=== PATIENT | female | born 1995 | race Caucasian/White ===

== ENCOUNTER 2019-02-18 07:34 | Emergency (ER) | payer BC, SELFPAY ==
[2019-02-18] VITALS (8 sets, daily range): BP systolic 110–142; BP diastolic 64–103; PULSE 60–94; RESP 16–22; TEMP 36.6; O2SAT 95–100; BMI 45.6
[2019-02-18 08:04] LABS: Microscopic, Urine URINE MICROSCOPIC (MICROSCOPIC)
[2019-02-18 08:07] LABS: Appearance,Urine CLOUDY (Clear); Bilirubin,Urine Negative (Negative); Blood, Urine Negative (Negative); Color,Urine YELLOW (Yellow); Glucose,Urine (UA) Negative (Negative); Ketones,Urine Negative (Negative); Leukocyte Esterase,Urine Negative (Negative); Nitrate,Urine Negative (Negative); Protein,Urine TRACE (Negative); Specific Gravity, Urine >= 1.030 (1.005-1.030); Urobilinogen,Urine 0.2 EU/dl (0.2)
[2019-02-18 08:11] LABS: Urine Pregnancy, HCG Qual. Negative (Negative)
--- NOTE | 2019-02-18 08:18 | HMH.EDGENADL ---
ED Disposition Clinical Impression: Acute gastroenteritis Disposition: Home, Self-Care Condition on Discharge: Fair Instructions: DI for Viral Gastroenteritis -- Adult Additional Instructions: Additional instructions for ABDOMINAL PAIN, VOMITING/DIARRHEA: See your physician as soon as possible for further evaluation. Return immediately if worsening abdominal pain, vomiting, shortness of breath, fever, vomiting of blood or abdominal distention. Prescriptions: Dicyclomine HCl [Bentyl 10mg capsule] 10 mg PO TIDP PRN #15 cap PRN Reason: abdominal pain Loperamide HCl [Loperamide] 2 mg PO TIDP PRN #10 tab PRN Reason: Diarrhea Ondansetron [Zofran 4mg ODT] 4 mg PO TIDP PRN #10 tab.rapdis PRN Reason: Nausea And Vomiting Referrals: Mitzy Hernandez [Primary Care Provider] - Forms: Work/School Release - Critical Care Critical Care Time: No Attestation: On 02/18/19, the high probability of a clinically significant, sudden or life threatening deterioration of the following system(s) required my full and direct attention, intervention and personal management. The time I documented below is in addition to time spent performing reported procedures but includes the following listed in this critical care notation. Medical Decision Making - Tim Inquiry Pt receiving controlled substance: Yes Tim was queried for this patient: Yes Reference #:: [id number] Risks and benefits of using a controlled substance: were not discussed with pt by me Comment: 0 rxs. Vital Signs: 02/18/19 07:52 02/18/19 08:05 02/18/19 08:30 Temperature 98 F Temperature Source Temporal Artery Scan Pulse Rate [Left Radial] 77 94 H 73 Respiratory Rate 22 Blood Pressure [Right Arm] 142/71 H 123/103 H 129/79 Blood Pressure Mean [Right Arm] 94 109 95 Blood Pressure Source [Right Arm] Automatic Cuff Blood Pressure Position [Right Arm] Sitting 02 Sat by Pulse Oximetry 98 96 95 Oxygen Delivery Method Room Air 02/18/19 09:26 02/18/19 09:30 02/18/19 10:00 Temperature Temperature Source Pulse Rate [Left Radial] 69 63 60 Respiratory Rate Blood Pressure [Right Arm] 131/91 H 121/80 116/64 Blood Pressure Mean [Right Arm] 104 93 81 Blood Pressure Source [Right Arm] Automatic Cuff Blood Pressure Position [Right Arm] Sitting 02 Sat by Pulse Oximetry 98 100 Oxygen Delivery Method - Lab Data Lab Results 02/18/19 07:39: Urine Color Yellow, Urine Appearance Cloudy, Urine pH 6.0, Ur Specific [place] >= 1.030, Urine Protein Trace, Urine Glucose (UA) Negative, Urine Ketones Negative, Urine Blood Negative, Urine Nitrate Negative, Urine Bilirubin Negative, Urine Urobilinogen 0.2, Ur Leukocyte Esterase Negative, Urine RBC None, Urine WBC Occasional, Ur Squamous Epith Cells 3-5, Urine Bacteria 1+ 02/18/19 07:39: Urine HCG, Qual Negative 02/18/19 08:22: WBC 11.9 H, RBC 4.90, Hgb 14.6, Hct 41.7, MCV 85.1, MCH 29.7, MCHC 35.0, RDW 12.4, Plt Count 256, MPV 8.0, Neut % (Auto) 70.4, Lymph % (Auto) 21.0, [place] % (Auto) 4.4, Eos % (Auto) 3.7, Baso % (Auto) 0.5, Neut # (Auto) 8.4 H, Lymph # (Auto) 2.5, [place] # (Auto) 0.5, Eos # (Auto) 0.4, Baso # (Auto) 0.1 02/18/19 08:22: Sodium 136, Potassium 3.7, Chloride 104, Carbon Dioxide 20 L, Anion Gap 15.7 H, BUN 12, Creatinine 0.82, Estimated Creat Clear 99, Estimated GFR 86, Est GFR ( Amer) 104, Glucose 107 H, Calcium 8.9, Total Bilirubin 0.6, AST 11 L, ALT 31, Alkaline Phosphatase 37 L, Total Protein 7.7, Albumin 3.6, Globulin 4.1 H, Albumin/Globulin Ratio 0.9 L 02/18/19 08:22: Lipase 144 02/18/19 08:35: Stl Aeromonas (PCR) Not detected, Stl C. cayetanensis PCR Not detected, Stool Rotavirus (PCR) Not detected, Stl Adenov F 40/41 PCR Not detected, Stool Astrovirus (PCR) Not detected, Stool Campylobacter PCR Not detected, Stl C.difficile Tox PCR Not detected, Stool Cryptosporidium PCR Not detected, Stl E.coli Shiga Tox PCR Not detected, Stool E coli O157 PCR Not detected, Stl Enterotoxigenic E PCR Not
[2019-02-18 08:24] LABS: Bacteria,Urine 1+ /lpf; WBC,Urine Occasional #/hpf (0-3)
[2019-02-18 08:39] LABS: Basophils # 0.1 K/mm3 (0-0.2); Basophils % 0.5 % (0.1-2.0); Eosinophils # 0.4 K/mm3 (0.0-0.4); Eosinophils % 3.7 % (0.1-12.0); Hematocrit 41.7 % (37.0-47.0); Hemoglobin 14.6 g/dL (12.2-16.2); Lymphocytes # 2.5 K/mm3 (0.7-4.5); Mean Corpuscular Hemoglobin 29.7 pg (27.0-31.2); Mean Corpuscular Volume 85.1 fl (81-99); Monocytes # 0.5 K/mm3 (0.1-1.0); Monocytes % 4.4 % (1.7-9.3); Neutrophils # 8.4 K/mm3 (1.8-7.8); Neutrophils % 70.4 % (37.0-80.0); Platelet Count 256 K/mm3 (142-424); Red Cell Distribution Width 12.4 % (11.5-17.5); White Blood Count 11.9 K/mm3 (4.8-10.8)
--- NOTE | 2019-02-18 08:39 | CT_ITS ---
CT abdomen pelvis w con INDICATION: 23-year-old female Abdominal pain 4 days. Severe today with constipation. ITS.REASON: abdo and back pain ORDERING PHYSICIAN: Jefferson Schaefer MD PATIENT AGE: 23 years COMPARISON: No previous CT study. Previous pelvic ultrasound 04/21/2018 showed 4 cm right ovary and 3.8 cm left ovary with numerous small follicles at that time PROCEDURE: Oral Contrast: None IV Contrast: 75 cc Optiray 350 TECHNIQUE: Axial images obtained with sagittal and coronal reformats. All CT scans at the facility use one or more dose reduction, viz: automated exposure control, ma/kV adjustment per patient size (including targeted exams where dose is matched to indication, i.e. head), or iterative reconstruction technique. FINDINGS: Lung bases. Nothing acute. Heart normal size. ABDOMEN/PELVIS . Postcontrast images of the liver, spleen, pancreas, adrenals unremarkable. Gallbladder. No gallstones. No biliary ductal dilatation. TRACT. No urinary tract calculi nor obstruction. Normal appearance to the enhancing kidneys bilaterally. No ureteral dilatation or calculi PELVIS. No pelvic mass nor adenopathy. Uterus appears normal. Ovaries generous size bilaterally:. Left ovary: 4.6 cm x 3.3 cm.There is a 16 mm follicle cyst along its posterior aspect with mild wall enhancement of this likely follicular cyst Right ovary:. Up to 3.8 cm height 4.1 cm AP. No significant fluid in the cul-de-sac. There may be some very minimal scant physiologic fluid but this is equivocal. GI TRACT. No bowel dilatation or obstruction. Stomach duodenal loop and small bowel appears satisfactory. No dilatation. Generous fluid distal small bowel but no distention. From only region unremarkable. Appendix appears normal. No evidence of appendicitis. There does appear to be some liquid stool at the right and transverse colon which could reflect developing diarrhea. I do not see a bunionette solid stool.. Actually noted to 2 or 3 forming diverticula at the left colon which is surprising for this young age. -------IMPRESSION: 1. No discrete acute findings in the abdomen nor pelvis No bowel dilatation or obstruction. 2. does appear to be increased liquid stool throughout the right & transverse colon with upper normal wall thickness transverse colon.... By CT I would be more suspect of possible developing diarrhea & mild colitis. The lack of increased solid stool the colon speaks against a typical constipation history. 3... Appendix appear normal Terminal ileum with upper normal wall thickness. 4. Ovaries are generous in size bilaterally. . Right ovary measures up to 4.2 cm Left ovary measured 4.6 cm maximally. &Containing 16 mm follicle with mild enhancing margin.
[2019-02-18 08:45] LABS: Adenovirus F 40/41, stool Not Detected (NotDetected); Astrovirus Not Detected (NotDetected); Campylobacter Not Detected (NotDetected); Clostridium Difficile A/B, PCR Not Detected (NotDetected); Cryptosporidium Not Detected (NotDetected); Cyclospora Cayetanesis Not Detected (NotDetected); Entamoeba histolytica Not Detected (NotDetected); Enteroaggregative E coli Not Detected (NotDetected); Enteropathogenic E coli Not Detected (NotDetected); Enterotoxigenic E coli Not Detected (NotDetected); Giardia lamblia Not Detected (NotDetected); Norovirus Not Detected (NotDetected); Plesimonas Shigalloides, PCR Not Detected (NotDetected); Rotavirus A Not Detected (NotDetected); Salmonella, PCR Not Detected (NotDetected); Sapovirus Not Detected (NotDetected); Shiga-like toxin E coli Not Detected (NotDetected); Shigella Enterovasive E coli Not Detected (NotDetected); Vibrio Cholerae Not Detected (NotDetected); Vibrio, PCR Not Detected (NotDetected); Yersinia Entercolitica, PCR Not Detected (NotDetected)
[2019-02-18 08:49] LABS: Alanine Aminotransferase 31 U/L (12-78); Albumin Level 3.6 gm/dL (3.4-5.0); Albumin/Globulin Ratio 0.9 (1.1-1.8); Alkaline Phosphatase 37 U/L (46-116); Anion Gap 15.7 mEq/L (5-15); Aspartate Amino Transferase 11 U/L (15-37); Bilirubin,Total 0.6 mg/dL (0.2-1.0); Blood Urea Nitrogen 12 mg/dL (7-18); Calcium 8.9 mg/dL (8.5-10.1); Carbon Dioxide 20 mmol/L (21.0-32.0); Chloride 104 mmol/L (98-107); Creatinine Clearance Estimated 99 mL/min (50-200); Creatinine,Serum 0.82 mg/dL (0.55-1.02); Estimated Glomerular Filt Rate 86 ml/min (>60); GFR (African American) 104 ML/MIN (>60); Globulin 4.1 gm/dl (1.3-3.2); Glucose 107 mg/dL (74-106); Potassium 3.7 mmoL/L (3.5-5.1); Sodium 136 mmol/L (136-145); Total Protein,Serum 7.7 gm/dL (6.4-8.2)
--- NOTE | 2019-02-18 09:00 | PC.NURSE ---
pt gone to xray
--- NOTE | 2019-02-18 09:01 | PC.NURSE ---
to ct per wheelchair
--- NOTE | 2019-02-18 09:22 | PC.NURSE ---
pt back from xray
--- NOTE | 2019-02-18 09:23 | PC.NURSE ---
return from ct per wheelchair
[2019-02-18 10:10] LABS: Lipase 144 u/L (73-393)
[2019-02-18 11:47] LABS: Amphetamine/Metha Screen,Urine Negative ng/mL (<1000); Barbiturates Screen,Urine Negative ng/mL (<200); Benzodiazepines Screen,Urine Negative ng/mL (<200); Cannabinoid Screen,Urine Positive ng/mL (<50); Cocaine Screen,Urine Negative ng/mL (<300); Methadone Screen,Urine Negative ng/mL (<300); Opiate Screen,Urine Negative ng/mL (<300); Phencyclidine Screen,Urine Negative ng/mL (<25)
== END 2019-02-18 11:23 | disposition home or self-care (01) ==
PROVIDERS: Emergency Medicine; Emergency Provider Emergency Medicine; PCP Nurse Practitioner Family
DX: K52.9 Noninfective gastroenteritis and colitis, unspecified (principal)
CPT/HCPCS: 36415; 74177; 80053; 80305; 81001; 81025; 83690; 85025; 87507; 96365; 96375; 96376; 99284; J2405; Q9967

== ENCOUNTER 2021-01-19 00:27 | Emergency (ER) | payer BC, SELFPAY ==
[2021-01-19 00:29] VITALS: BP 147/105; PULSE 77; RESP 22; TEMP 36.6; O2SAT 99; BMI 46.2
[2021-01-19 01:10] LABS: Microscopic, Urine URINE MICROSCOPIC (MICROSCOPIC)
[2021-01-19 01:12] LABS: Appearance,Urine SL CLOUDY (Clear); Bilirubin,Urine Negative (Negative); Blood, Urine 3+ (Negative); Color,Urine RED (Yellow); Glucose,Urine (UA) Negative (Negative); Ketones,Urine Negative (Negative); Leukocyte Esterase,Urine TRACE (Negative); Nitrate,Urine POSITIVE (Negative); Protein,Urine 1+ (Negative); Specific Gravity, Urine 1.025 (1.005-1.030); Urine Pregnancy, HCG Qual. Negative (Negative); Urobilinogen,Urine 0.2 EU/dl (0.2)
[2021-01-19 01:17] LABS: Basophils # 0.1 K/mm3 (0-0.2); Basophils % 0.6 % (0.1-2.0); Hematocrit 39.9 % (37.0-47.0); Hemoglobin 13.7 g/dL (12.2-16.2); Lymphocytes # 4.1 K/mm3 (0.7-4.5); Lymphocytes % 27.5 % (10-50); Mean Corpuscular HGB Conc 34.3 g/dL (31.8-35.4); Mean Corpuscular Hemoglobin 27.7 pg (27.0-31.2); Mean Corpuscular Volume 80.9 fl (81-99); Mean Platelet Volume 7.9 fl (7.4-10.4); Monocytes # 0.5 K/mm3 (0.1-1.0); Monocytes % 3.2 % (1.7-9.3); Neutrophils # 10.2 K/mm3 (1.8-7.8); Neutrophils % 68.8 % (37.0-80.0); Platelet Count 257 K/mm3 (142-424); Red Blood Count 4.93 M/mm3 (4.20-5.40); Red Cell Distribution Width 13.3 % (11.5-17.5); White Blood Count 14.8 K/mm3 (4.8-10.8)
[2021-01-19 01:26] LABS: Chloride 105 mmol/L (98-107); Potassium 3.6 mmoL/L (3.5-5.1); Sodium 139 mmol/L (136-145)
[2021-01-19 01:27] LABS: RBC,Urine TNTC #/hpf (0-3)
[2021-01-19 01:29] LABS: Alanine Aminotransferase 37 U/L (12-78); Albumin Level 4.6 g/dl (3.5-5.0); Albumin/Globulin Ratio 1.3 (1.1-1.8); Alkaline Phosphatase 52 U/L (38-126); Anion Gap 10.6 mEq/L (5-15); Aspartate Amino Transferase 40 U/L (14-36); Bilirubin,Total 0.4 mg/dl (0.2-1.3); Blood Urea Nitrogen 14 mg/dl (7-17); Carbon Dioxide 27 mmol/L (22.0-30.0); Creatinine Clearance Estimated 104 mL/min (50-200); Estimated Glomerular Filt Rate 87 ml/min (>60); GFR (African American) 105 ML/MIN (>60); Globulin 3.5 g/dL (1.3-3.2); Total Protein,Serum 8.1 g/dl (6.3-8.2)
[2021-01-19 01:30] LABS: Calcium 9.8 mg/dl (8.4-10.2); Glucose 139 mg/dl (74-100)
[2021-01-19 01:35] LABS: C-Reactive Protein 7.9 mg/L (0-4)
--- NOTE | 2021-01-19 01:40 | HMH.EDDIZZ ---
ED Disposition Clinical Impression: Vasovagal episode Nausea & vomiting Qualifiers: Vomiting type: unspecified Vomiting Intractability: non-intractable Qualified Code(s): R11.2 - Nausea with vomiting, unspecified Disposition: Home, Self-Care Condition on Discharge: Good Instructions: DI for Vomiting -- Adult Additional Instructions: fluids and see pcp for gilberto dowd Prescriptions: ondansetron HCL [Zofran 4mg Tab] 4 mg PO TID #21 tab Prescription Printed Referrals: Mitzy Hernandez [Primary Care Provider] - - Critical Care Critical Care Time: No Attestation: On 01/19/21, the high probability of a clinically significant, sudden or life threatening deterioration of the following system(s) required my full and direct attention, intervention and personal management. The time I documented below is in addition to time spent performing reported procedures but includes the following listed in this critical care notation. Medical Decision Making - Medical Records Medical records reviewed: Yes: I reviewed the patient's medical records. - Tim Inquiry Pt receiving controlled substance: No Vital Signs: 01/19/21 00:29 Temperature 97.9 F Temperature Source Oral Pulse Rate [Left Radial] 77 Respiratory Rate 22 Blood Pressure [Right Arm] 147/105 H Blood Pressure Mean [Right Arm] 119 Blood Pressure Source [Right Arm] Automatic Cuff Blood Pressure Position [Right Arm] Supine 02 Sat by Pulse Oximetry 99 Oxygen Delivery Method Room Air - Lab Data Lab results reviewed: Yes: I reviewed the patient's lab results. Lab Results 01/19/21 00:34: Urine Color Red, Urine Appearance Sl cloudy, Urine pH 7.0, Ur Specific [place] 1.025, Urine Protein 1+, Urine Glucose (UA) Negative, Urine Ketones Negative, Urine Blood 3+, Urine Nitrate Positive, Urine Bilirubin Negative, Urine Urobilinogen 0.2, Ur Leukocyte Esterase Trace, Urine RBC Tntc, Urine WBC 5-10 01/19/21 00:34: Urine HCG, Qual Negative 01/19/21 01:10: WBC 14.8 H, RBC 4.93, Hgb 13.7, Hct 39.9, MCV 80.9 L, MCH 27.7, MCHC 34.3, RDW 13.3, Plt Count 257, MPV 7.9, Neut % (Auto) 68.8, Lymph % (Auto) 27.5, [place] % (Auto) 3.2, Eos % (Auto) 0.0 L, Baso % (Auto) 0.6, Neut # (Auto) 10.2 H, Lymph # (Auto) 4.1, [place] # (Auto) 0.5, Eos # (Auto) 0.0, Baso # (Auto) 0.1 01/19/21 01:10: Sodium 139, Potassium 3.6, Chloride 105, Carbon Dioxide 27, Anion Gap 10.6, BUN 14, Creatinine 0.80, Estimated Creat Clear 104, Estimated GFR 87, Est GFR ( Amer) 105, Glucose 139 H, Calcium 9.8, Total Bilirubin 0.4, AST 40 H, ALT 37, Alkaline Phosphatase 52, C-Reactive Protein 7.9 H, Total Protein 8.1, Albumin 4.6, Globulin 3.5 H, Albumin/Globulin Ratio 1.3 01/19/21 01:10: ESR 33 H Result diagrams: 01/19/21 01:10 01/19/21 01:10 Orders (Tests/Meds): ED MEDICATIONS Generic Name Dose Route Start Last Admin Trade Name Freq PRN Reason Stop Dose Admin Sodium Chloride 1,000 mls @ 999 mls/hr 01/19/21 01:15 01/19/21 01:50 Sod Chlor 0.9% 1000ml Bag IV 01/19/21 02:15 999 mls/hr .Q1H1M NAVJOT Administration Discontinued Medications Generic Name Dose Route Start Last Admin Trade Name Freq PRN Reason Stop Dose Admin Famotidine 20 mg 01/19/21 02:38 Famotidine 20mg/2ml Vial IV 01/19/21 02:39 ONCE ONE Meclizine HCl 25 mg 01/19/21 01:33 01/19/21 01:49 Meclizine 25mg Tablet PO 01/19/21 01:34 25 mg ONCE ONE Administration Metoclopramide HCl 10 mg 01/19/21 02:38 Metoclopramide Hcl 10mg/2ml Vial IVP 01/19/21 02:39 ONCE ONE Ondansetron HCl 4 mg 01/19/21 01:07 01/19/21 02:34 Ondansetron 4mg/2ml Vial IV 01/19/21 01:08 4 mg ONCE ONE Administration Medical Decision Narrative: stable labs with nausea and vomiting Dizzy HPI - General Chief Complaint: Dizziness Stated Complaint: Vomiting, shaky, excessive bleeding vaginally Time Seen by Provider: 01/19/21 00:50 Mode of Arrival: Ambulatory Source of Information: Patient, Medical Record Limitations:
[2021-01-19 01:50] LABS: Erythrocyte Sedimentation Rate 33 mm/hr (0-20)
[2021-01-19 02:55] VITALS: BP 138/88; PULSE 76; RESP 18; TEMP 36.6; O2SAT 98
== END 2021-01-19 02:59 | disposition home or self-care (01) ==
PROVIDERS: Emergency Provider Emergency Medicine; PCP Nurse Practitioner Family
DX: R42 Dizziness and giddiness (principal); R11.2 Nausea with vomiting, unspecified; N93.9 Abnormal uterine and vaginal bleeding, unspecified
CPT/HCPCS: 80053; 81001; 81025; 85025; 85651; 86140; 96365; 96375; 99282; J2405

== ENCOUNTER 2021-11-29 15:56 | Emergency (ER) | payer BC, SELFPAY ==
[2021-11-29 18:46] VITALS: BP 135/75; PULSE 96; RESP 16; TEMP 36.8; O2SAT 98; BMI 44.4
--- NOTE | 2021-11-29 18:51 | PC.NURSE ---
Patient ambulatory to restroom
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
--- NOTE | 2021-11-29 20:02 | PC.NURSE ---
heart tones 154 and regular per OB staff
[2021-11-29 20:20] VITALS: BP 129/84; PULSE 92; RESP 16; TEMP 36.8; O2SAT 98
== END 2021-11-29 20:21 | disposition home or self-care (01) ==
PROVIDERS: Emergency Provider Emergency Medicine; PCP Nurse Practitioner Family
DX: T21.7 Corrosion of third degree of trunk (principal); Z3A.15 15 weeks gestation of pregnancy; T65.891A Toxic effect of other specified substances, accidental (unintentional), initial encounter; Y92.012 Bathroom of single-family (private) house as the place of occurrence of the external cause
CPT/HCPCS: 99281

== ENCOUNTER 2023-02-24 23:26 | Emergency (ER) | payer BC, SELFPAY ==
[2023-02-24 23:26] VITALS: BP 155/105; PULSE 115; RESP 29; TEMP 36.7; O2SAT 99; BMI 43.2
[2023-02-24 23:27] VITALS: BMI 38.0
[2023-02-24 23:31] VITALS: BP 143/113; PULSE 128; O2SAT 98
--- NOTE | 2023-02-24 23:33 | ECG_ITS ---
APPROVED REPORT Exam: Resting ECG HR:110 bpm ECG Measurements Heart Rate 110 AXES TX 181 P 83 QRSd 76 QRS 73 QT 311 T 90 QTc 376 Conclusion SINUS TACHYCARDIA SEPTAL MYOCARDIAL INFARCTION , OF INDETERMINATE AGE [40+ ms Q WAVE IN V1/V2] ABNORMAL ECG UNCONFIRMED REPORT Electronically signed by : Michael Lugo MD 02/25/2023 20:28:51
[2023-02-24 23:38] LABS: Basophils # 0.2 K/mm3 (0-0.2); Basophils % 1.1 % (0.1-2.0); Eosinophils # 1.2 K/mm3 (0.0-0.4); Eosinophils % 8.6 % (0.1-12.0); Hematocrit 47.4 % (37.0-47.0); Hemoglobin 16.3 g/dL (12.2-16.2); Lymphocytes # 3.6 K/mm3 (0.7-4.5); Lymphocytes % 25.8 % (10-50); Mean Corpuscular HGB Conc 34.3 g/dL (31.8-35.4); Mean Corpuscular Hemoglobin 29.1 pg (27.0-31.2); Mean Corpuscular Volume 84.9 fl (81-99); Mean Platelet Volume 7.6 fl (7.4-10.4); Monocytes # 0.8 K/mm3 (0.1-1.0); Monocytes % 5.5 % (1.7-9.3); Neutrophils # 8.3 K/mm3 (1.8-7.8); Platelet Count 311 K/mm3 (142-424); Red Blood Count 5.58 M/mm3 (4.20-5.40); Red Cell Distribution Width 13.3 % (11.5-17.5)
[2023-02-24 23:44] LABS: Alanine Aminotransferase 23 U/L (12-78); Albumin Level 4.7 g/dl (3.5-5.0); Albumin/Globulin Ratio 1.2 (1.1-1.8); Alkaline Phosphatase 49 U/L (38-126); Aspartate Amino Transferase 30 U/L (14-36); Bilirubin,Total 0.7 mg/dl (0.2-1.3); Blood Urea Nitrogen 16 mg/dl (7-17); Calcium 9.4 mg/dl (8.4-10.2); Carbon Dioxide 23 mmol/L (22.0-30.0); Chloride 103 mmol/L (98-107); Creatinine Clearance Estimated 227 mL/min (50-200); Estimated Glomerular Filt Rate 100 ml/min (>60); GFR (African American) 121 ML/MIN (>60); Globulin 3.9 g/dL (1.3-3.2); Glucose 81 mg/dl (74-100); Sodium 138 mmol/L (136-145); Total Protein,Serum 8.6 g/dl (6.3-8.2)
[2023-02-24 23:49] LABS: ABG Base Excess -4.7 mmol/L (-2.4-2.3); ABG HCO3 16.8 mmhg (22.0-26.0); ABG Oxygen Saturation 98 % (90-100); ABG PO2 83.7 mmhg (80-100); ABG TCO2 17.3 mmhg (23-27); Allen's Test Acceptable; Oxygen 21 %; Source Left Radial
[2023-02-24 23:49] LABS: C-Reactive Protein 23.8 mg/L (0-4)
[2023-02-24 23:51] LABS: ABG PCO2 17.3 mmhg (35.0-45.0)
--- NOTE | 2023-02-24 23:51 | PC.NURSE ---
pH 7.6, pCo2 17.3, pO2 43.7, pHCO3 16.8
--- NOTE | 2023-02-24 23:55 | PC.NURSE ---
Dr. Martinez notified of critical abg
[2023-02-24 23:58] LABS: Acetaminophen < 10 ug/ml (10-30); Ethyl Alcohol < 10 mg/dl (0-10); NT Pro Brain Natriuretic Pep. 152 pg/mL (0-125); Salicylate < 1.0 mg/dL (2.0-20.0); Troponin I < 0.01 ng/ml (0.00-0.034)
--- NOTE | 2023-02-25 | XR_ITS ---
PROCEDURE INFORMATION: Exam: XR Chest Exam date and time: 02/25/2023 12:08 AM Age: 27 years old Clinical indication: Shortness of breath; Additional info: Shortness of air TECHNIQUE: Imaging protocol: Radiologic exam of the chest. Views: 2 views. COMPARISON: CR XR CHEST 2V 11/04/2019 10:57 PM FINDINGS: Lungs: Unremarkable. No consolidation. Pleural spaces: Unremarkable. No pleural effusion. No pneumothorax. Heart/Mediastinum: Unremarkable. No cardiomegaly. Bones/joints: Unremarkable. IMPRESSION: No acute findings.
--- NOTE | 2023-02-25 | CT_ITS ---
PROCEDURE INFORMATION: Exam: CTA Chest With Contrast Exam date and time: 02/25/2023 12:23 AM Age: 27 years old Clinical indication: Shortness of breath; Additional info: Shortness of air TECHNIQUE: Imaging protocol: Computed tomographic angiography of the chest with contrast. 3D rendering (Not supervised by radiologist): MIP and/or 3D reconstructed images were created by the technologist. Radiation optimization: All CT scans at this facility use at least one of these dose optimization techniques: automated exposure control; mA and/or kV adjustment per patient size (includes targeted exams where dose is matched to clinical indication); or iterative reconstruction. Contrast material: ISOVUE; Contrast volume: 70 ml; Contrast route: INTRAVENOUS (IV); REPORTING DATA: Count of CT and Cardiac NM exams in prior 12 months: This patient has received 0 known CTs and 0 known cardiac nuclear medicine studies in the 12 months prior to the current study. COMPARISON: CR XR CHEST 2V 02/25/2023 12:08 AM FINDINGS: Pulmonary arteries: Normal. No pulmonary emboli. Aorta: Unremarkable. No aortic aneurysm. No aortic dissection. Lungs: Unremarkable. No consolidation. No masses. Pleural spaces: Unremarkable. No pneumothorax. No pleural effusion. Heart: Unremarkable. No cardiomegaly. No pericardial effusion. Lymph nodes: Unremarkable. No enlarged lymph nodes. Bones/joints: Unremarkable. No acute fracture. Soft tissues: Unremarkable. IMPRESSION: No acute findings.
[2023-02-25 00:03] VITALS: BP 106/87; PULSE 103; RESP 40; O2SAT 96
[2023-02-25 00:04] LABS: Free T4 (Free Thyroxine) 1.67 ng/dl (0.78-2.19)
[2023-02-25 00:06] LABS: HCG Qualitative, Serum Negative (Negative)
[2023-02-25 00:17] LABS: Thyroid Stimulating Hormone 2.27 uIU/mL (0.465-4.68)
[2023-02-25 00:20] LABS: Erythrocyte Sedimentation Rate 14 mm/hr (0-20)
[2023-02-25 01:01] VITALS: BP 104/75; PULSE 84; RESP 18; O2SAT 96
[2023-02-25 01:31] VITALS: BP 109/79; PULSE 81; RESP 23; O2SAT 95
--- NOTE | 2023-02-25 01:56 | PC.NURSE ---
nicholas reyes at bedside per pt request
[2023-02-25 02:00] VITALS: BP 167/137; PULSE 86; RESP 22; O2SAT 95
--- NOTE | 2023-02-25 02:20 | HMH.EDSOB ---
Discharge Plan Disposition Patient Disposition: Home, Self-Care Chief Complaint: Shortness of Breath/Dyspnea Prescriptions Prescriptions: No Action hydroxyzine pamoate 100 mg capsule 200 mg PO BID Label Comments: TAKE 2 CAPSULES BY MOUTH IN THE MORNING AND 2 AT NIGHT cetirizine 10 mg tablet 10 mg PO DAILY Label Comments: TAKE 1 TABLET BY MOUTH ONCE DAILY ibuprofen 800 mg tablet 800 mg PO TIDP PRN (Reason: Pain) Label Comments: TAKE 1 TABLET BY MOUTH EVERY 8 HOURS NEEDED FOR MILD PAIN valacyclovir 1 gram tablet 1,000 mg PO DAILY Label Comments: TAKE 1 TABLET BY MOUTH ONCE DAILY EACH DAY propranolol 60 mg capsule,extended release 24 hr 60 mg PO DAILY Label Comments: TAKE 1 CAPSULE BY MOUTH ONCE DAILY; DO NOT CRUSH, CHEW, OR SPLIT phentermine 37.5 mg tablet 37.5 mg PO DAILY Label Comments: TAKE 1 TABLET BY MOUTH ONCE DAILY BEFORE BREAKFAST progesterone micronized 200 mg capsule 200 mg PO HS Label Comments: TAKE 1 CAPSULE BY MOUTH ONCE DAILY AT NIGHT metformin 500 mg tablet extended release 24 hr 1,500 mg PO BID Label Comments: TAKE 3 TABLETS BY MOUTH ONCE DAILY WITH DINNER. DO NOT CRUSH, CHEW, OR SPLIT. sertraline 50 mg tablet 150 mg PO HS Label Comments: TAKE 3 TABLETS BY MOUTH ONCE DAILY AT NIGHT cyclobenzaprine 5 mg tablet 5 mg PO TIDP PRN (Reason: Muscle Spasm) Label Comments: TAKE 1 TABLET BY MOUTH THREE TIMES DAILY NEEDED FOR MUSCLE SPASM PNV cmb#95-ferrous fumarate-FA [] 28 mg iron- 800 mcg tablet 1 tab PO DAILY Label Comments: TAKE 1 TABLET BY MOUTH ONCE DAILY albuterol sulfate 18 GM HFA aerosol inhaler 1 - 2 puffs IH Q4-6H PRN (Reason: Shortness Of Breath Or Wheezing) Referrals Follow up/Referrals: Mitzy Hernandez [Primary Care Provider] - See instructions Clinical Impressions Clinical Impression: RAD (reactive airway disease) with wheezing Instructions Patient Instructions: DI for Shortness of Breath Discharge ED Provider: Juan (ED)Олег Resp/SOB HPI General Chief Complaint: Shortness of Breath/Dyspnea Stated Complaint: dyspnea Time Seen by Provider: 02/24/23 23:35 Mode of Arrival: Family Vehicle Source of Information: Patient and Medical Record Limitations: No Limitations Description of Symptoms (Recalled from ER Triage Doc. by RN): Pt c/o SOA, dyspnea, and labored breathing since cleaning a house. She repoirts they were using bleach and not combining with anything else. States she felt SOA moderatly while cleaning @ 1500. Then @ 1999 is progressively worsened. On the way to the hospital she felt light-headed and flushed. Pt is diaphoretic and gasping for air. St refuses to breathe through her nose reporting I can't do it is blocking my airway . Pt states this is not a panic attack I know what those are ,. She used her THC pen @2100 in attempt to help her breathing d/t It helps me breathe better when I have a panic attack . Denies any chest pain. Denies any N/V/D. Denies any cough. Pt also has clear nasal discharge. Denies any fever or chills. Pt states I actively [place] so I know my lungs are normal . Pt reports to be taking adipex for about 4 months, she reports I was told I could have a blood clot from the medicine . History of Present Illness pt with sob and has increased resp sx - concerned about exposure to bleach and also taking adipex pt denied any specific hx MD Complaint: shortness of breath Onset (ago): hour(s) Severity: moderate Associated symptoms: denies other symptoms Treatment prior to arrival: none Related Data Home oxygen amount: none Home Medications Medication Instructions Recorded Confirmed albuterol sulfate 90 mcg/actuation 1 - 2 puffs IH Q4-6H PRN Shortness 11/04/19 02/25/23 aerosol inhaler Of Breath Or Wheezing cetirizine 10 mg tablet 10 mg PO DAILY Allergy symptoms 02/25/23 02/25/23 cyclo
--- NOTE | 2023-02-25 02:27 | PC.NURSE ---
Pt states she is feeling better & ready to leave, MD notified of this.
[2023-02-25 02:29] VITALS: BP 112/70; PULSE 83; RESP 19; TEMP 36.8; O2SAT 99
[2023-02-25 02:33] LABS: Troponin I < 0.01 ng/ml (0.00-0.034)
== END 2023-02-25 02:54 | disposition home or self-care (01) ==
PROVIDERS: Emergency Provider Emergency Medicine; PCP Nurse Practitioner Family
DX: J45.909 Unspecified asthma, uncomplicated (principal); F17.200 Nicotine dependence, unspecified, uncomplicated
CPT/HCPCS: 71046; 71275; 80053; 80329; 82803; 83880; 84145; 84439; 84443; 84484; 84703; 85025; 85651; 86140; 93005; 96361; 96374; 99285; Q9967

== ENCOUNTER 2023-02-25 11:17 | Emergency (ER) | payer BC, SELFPAY ==
[2023-02-25] VITALS (9 sets, daily range): BP systolic 134–139; BP diastolic 81–107; PULSE 86–108; RESP 18–32; TEMP 36.7; O2SAT 96–98; BMI 41.5
[2023-02-25 11:39] LABS: Basophils # 0.1 K/mm3 (0-0.2); Basophils % 0.8 % (0.1-2.0); Eosinophils # 0.1 K/mm3 (0.0-0.4); Eosinophils % 0.9 % (0.1-12.0); Hematocrit 51.3 % (37.0-47.0); Lymphocytes # 1.6 K/mm3 (0.7-4.5); Lymphocytes % 13.3 % (10-50); Mean Corpuscular HGB Conc 33.2 g/dL (31.8-35.4); Mean Corpuscular Volume 87.6 fl (81-99); Mean Platelet Volume 7.8 fl (7.4-10.4); Monocytes # 0.3 K/mm3 (0.1-1.0); Monocytes % 2.5 % (1.7-9.3); Neutrophils # 9.6 K/mm3 (1.8-7.8); Neutrophils % 82.4 % (37.0-80.0); Platelet Count 353 K/mm3 (142-424); Red Blood Count 5.86 M/mm3 (4.20-5.40); Red Cell Distribution Width 13.3 % (11.5-17.5); White Blood Count 11.6 K/mm3 (4.8-10.8)
[2023-02-25 11:40] LABS: Chloride 106 mmol/L (98-107); Potassium 4.4 mmoL/L (3.5-5.1); Sodium 140 mmol/L (136-145)
[2023-02-25 11:43] LABS: Alanine Aminotransferase 27 U/L (12-78); Albumin Level 5.2 g/dl (3.5-5.0); Albumin/Globulin Ratio 1.1 (1.1-1.8); Alkaline Phosphatase 59 U/L (38-126); Anion Gap 16.4 mEq/L (5-15); Aspartate Amino Transferase 31 U/L (14-36); Bilirubin,Total 0.8 mg/dl (0.2-1.3); Blood Urea Nitrogen 14 mg/dl (7-17); Carbon Dioxide 22 mmol/L (22.0-30.0); Creatinine Clearance Estimated 126 mL/min (50-200); Estimated Glomerular Filt Rate 119 ml/min (>60); GFR (African American) 144 ML/MIN (>60); Globulin 4.6 g/dL (1.3-3.2); Total Protein,Serum 9.8 g/dl (6.3-8.2)
[2023-02-25 11:44] LABS: Calcium 9.9 mg/dl (8.4-10.2); Glucose 129 mg/dl (74-100)
--- NOTE | 2023-02-25 12:11 | HMH.EDSOB ---
Discharge Plan Disposition Patient Disposition: Home, Self-Care Prescriptions Prescriptions: New levalbuterol tartrate [Xopenex HFA] 45 mcg/actuation HFA aerosol inhaler 2 inh inhalation Q4H PRN (Reason: shortness of breath) Qty: 15 0RF No Action hydroxyzine pamoate 100 mg capsule 200 mg PO BID Label Comments: TAKE 2 CAPSULES BY MOUTH IN THE MORNING AND 2 AT NIGHT cetirizine 10 mg tablet 10 mg PO DAILY Label Comments: TAKE 1 TABLET BY MOUTH ONCE DAILY ibuprofen 800 mg tablet 800 mg PO TIDP PRN (Reason: Pain) Label Comments: TAKE 1 TABLET BY MOUTH EVERY 8 HOURS NEEDED FOR MILD PAIN valacyclovir 1 gram tablet 1,000 mg PO DAILY Label Comments: TAKE 1 TABLET BY MOUTH ONCE DAILY EACH DAY propranolol 60 mg capsule,extended release 24 hr 60 mg PO DAILY Label Comments: TAKE 1 CAPSULE BY MOUTH ONCE DAILY; DO NOT CRUSH, CHEW, OR SPLIT phentermine 37.5 mg tablet 37.5 mg PO DAILY Label Comments: TAKE 1 TABLET BY MOUTH ONCE DAILY BEFORE BREAKFAST progesterone micronized 200 mg capsule 200 mg PO HS Label Comments: TAKE 1 CAPSULE BY MOUTH ONCE DAILY AT NIGHT metformin 500 mg tablet extended release 24 hr 1,500 mg PO BID Label Comments: TAKE 3 TABLETS BY MOUTH ONCE DAILY WITH DINNER. DO NOT CRUSH, CHEW, OR SPLIT. sertraline 50 mg tablet 150 mg PO HS Label Comments: TAKE 3 TABLETS BY MOUTH ONCE DAILY AT NIGHT cyclobenzaprine 5 mg tablet 5 mg PO TIDP PRN (Reason: Muscle Spasm) Label Comments: TAKE 1 TABLET BY MOUTH THREE TIMES DAILY NEEDED FOR MUSCLE SPASM PNV cmb#95-ferrous fumarate-FA [] 28 mg iron- 800 mcg tablet 1 tab PO DAILY Label Comments: TAKE 1 TABLET BY MOUTH ONCE DAILY albuterol sulfate 18 GM HFA aerosol inhaler 1 - 2 puffs IH Q4-6H PRN (Reason: Shortness Of Breath Or Wheezing) Referrals Follow up/Referrals: Mitzy Hernandez [Primary Care Provider] - See instructions Discharge ED Provider: Dominguez Lancaster Resp/SOB HPI General Chief Complaint: Shortness of Breath/Dyspnea Stated Complaint: SOA Time Seen by Provider: 02/25/23 13:23 Mode of Arrival: EMS Source of Information: Patient Limitations: No Limitations Description of Symptoms (Recalled from ER Triage Doc. by RN): pt to ED with SOB on exertion since 3pm yesterday. pt reports she was seen in the ER last night and worked up for a PE but was found to be negative. pt reports she was given medication for anxiety because she was told she was having a panic attack. pt reports that didnt help and that she has a history of panic attacks and that this doesnt feel like it. History of Present Illness 27-year-old white female presents with shortness of breath. She is a return visit from last night with the same symptoms. At last office visit she was given Ativan which calmed her down and put her to sleep and she had good resolution she is back today refusing Ativan reporting that it is in her lungs is nodding her head. She has a history of severe PTSD and anxiety. She reports that she is a big hiker and also reports that her family history is full of asthma. She reports that the 2 nebulizers she was administered in the EMS did nothing to help her. She reports that her symptoms actually got worse after placement of the Mirena. She lists no known allergies. Related Data Home Medications Medication Instructions Recorded Confirmed albuterol sulfate 90 mcg/actuation 1 - 2 puffs IH Q4-6H PRN Shortness 11/04/19 02/25/23 aerosol inhaler Of Breath Or Wheezing cetirizine 10 mg tablet 10 mg PO DAILY Allergy symptoms 02/25/23 02/25/23 cyclobenzaprine 5 mg tablet 5 mg PO TIDP PRN Muscle Spasm 02/25/23 02/25/23 hydroxyzine pamoate 100 mg capsule 200 mg PO BID Anxiety 02/25/23 02/25/23 ibuprofen 800 mg tablet 800 mg PO TIDP PRN Pain 02/25/23 02/25/23 metformin 500 mg tablet,extended 1,500 mg PO BID PCOS 02/25/23 02/25/23 release 24
--- NOTE | 2023-02-25 12:11 | PC.NURSE ---
respiratory called for breathing treatment
--- NOTE | 2023-02-25 12:21 | PC.NURSE ---
pt offered clonidine by MD at this time but has denied.
--- NOTE | 2023-02-25 12:37 | PC.NURSE ---
pt reports the xopenex treatment gave her a lot of relief. pt given a water at this time
[2023-02-25 12:57] LABS: D-Dimer 0.68 ug/mL (0.0-0.5)
== END 2023-02-25 13:57 | disposition home or self-care (01) ==
PROVIDERS: Emergency Medicine; Emergency Provider Emergency Medicine; PCP Nurse Practitioner Family
DX: R06.4 Hyperventilation (principal); R06.02 Shortness of breath
CPT/HCPCS: 80053; 85025; 85378; 99284

== ENCOUNTER 2023-06-27 00:10 | Emergency (ER) | payer BC, SELFPAY ==
[2023-06-27 00:17] VITALS: BP 139/95; PULSE 88; O2SAT 98
[2023-06-27 00:23] VITALS: BP 139/95; PULSE 87; RESP 20; TEMP 36.8; O2SAT 99; BMI 40.2
[2023-06-27 00:51] LABS: Microscopic, Urine URINE MICROSCOPIC (MICROSCOPIC)
--- NOTE | 2023-06-27 00:52 | PC.NURSE ---
notified rad of need for US
--- NOTE | 2023-06-27 00:56 | US_ITS ---
PROCEDURE INFORMATION: Exam: US , Transvaginal Exam date and time: 06/27/2023 2:55 AM Age: 28 years old Clinical indication: complicated by abdominal or pelvic pain; Left lower quadrant; First trimester (<14 weeks 0 days); Gestational age or lmp: 5 weeks according to lmp; ; Prior surgery; Surgery date: 6+ months; Surgery type: Csection 05-09-2022; Additional info: Abdominal pain TECHNIQUE: Imaging protocol: Real-time transvaginal obstetrical ultrasound of the maternal pelvis and a first trimester with image documentation. Transvaginal imaging was used for better evaluation of the fetus, adnexa, and/or cervix. Real-time duplex ultrasound scan of the arterial or venous flow of the ovaries with B-mode, color Doppler flow and spectral waveform analysis, Limited Duplex. Duplex exam was performed to evaluate for torsion and other vascular conditions. COMPARISON: TRANVAG US transvaginal 04/21/2018 5:39 PM FINDINGS: GESTATION: Gestation: 0.4 x 0.3 x 0.2 cm saclike structure within endometrium. No yolk sac. No pole. heart rate: N/A. MATERNAL: Cervix: Closed cervix. Right ovary: No mass. Normal flow. No adnexal mass. Left ovary: Possible 2.0 x 2.1 x 1.1 cm corpus luteal cyst. Normal flow. No adnexal mass. Intraperitoneal space: No significant free fluid. IMPRESSION: Sac without pole or yolk sac. DDX: Early IUP, blighted ovum, ectopic (with pseudogestational sac). Followup is recommended.
[2023-06-27 01:07] LABS: Appearance,Urine CLOUDY (Clear); Blood, Urine Negative (Negative); Color,Urine YELLOW (Yellow); Glucose,Urine (UA) Negative (Negative); Ketones,Urine Negative (Negative); Leukocyte Esterase,Urine TRACE (Negative); Nitrate,Urine Negative (Negative); PH,Urine 5.5 (5.0-8.5); Protein,Urine TRACE (Negative); Specific Gravity, Urine >= 1.030 (1.005-1.030); Urobilinogen,Urine 0.2 EU/dl (0.2)
[2023-06-27 01:08] LABS: Bilirubin,Urine 1+ (Negative)
[2023-06-27 01:27] LABS: Basophils # 0.1 K/mm3 (0-0.2); Basophils % 0.7 % (0.1-2.0); Eosinophils # 0.9 K/mm3 (0.0-0.4); Eosinophils % 6.3 % (0.1-12.0); Hematocrit 41.7 % (37.0-47.0); Hemoglobin 14.4 g/dL (12.2-16.2); Lymphocytes # 3.7 K/mm3 (0.7-4.5); Lymphocytes % 25.5 % (10-50); Mean Corpuscular HGB Conc 34.5 g/dL (31.8-35.4); Mean Corpuscular Hemoglobin 29.1 pg (27.0-31.2); Mean Corpuscular Volume 84.3 fl (81-99); Mean Platelet Volume 7.6 fl (7.4-10.4); Monocytes # 0.6 K/mm3 (0.1-1.0); Monocytes % 4.1 % (1.7-9.3); Neutrophils # 9.2 K/mm3 (1.8-7.8); Neutrophils % 63.4 % (37.0-80.0); Platelet Count 267 K/mm3 (142-424); Red Blood Count 4.95 M/mm3 (4.20-5.40); Red Cell Distribution Width 13.1 % (11.5-17.5); White Blood Count 14.5 K/mm3 (4.8-10.8)
--- NOTE | 2023-06-27 01:28 | HMH.EDGENADL ---
Discharge Plan Disposition Patient Disposition: Left Against Medical Advice Condition: Undetermined Prescriptions Prescriptions: No Action hydroxyzine pamoate 100 mg capsule 200 mg PO BID Patient Comments: TAKE 2 CAPSULES BY MOUTH IN THE MORNING AND 2 AT NIGHT cetirizine 10 mg tablet 10 mg PO DAILY Patient Comments: TAKE 1 TABLET BY MOUTH ONCE DAILY ibuprofen 800 mg tablet 800 mg PO TIDP PRN (Reason: Pain) Patient Comments: TAKE 1 TABLET BY MOUTH EVERY 8 HOURS NEEDED FOR MILD PAIN valacyclovir 1 gram tablet 1,000 mg PO DAILY Patient Comments: TAKE 1 TABLET BY MOUTH ONCE DAILY EACH DAY propranolol 60 mg capsule,extended release 24 hr 60 mg PO DAILY Patient Comments: TAKE 1 CAPSULE BY MOUTH ONCE DAILY; DO NOT CRUSH, CHEW, OR SPLIT phentermine 37.5 mg tablet 37.5 mg PO DAILY Patient Comments: TAKE 1 TABLET BY MOUTH ONCE DAILY BEFORE BREAKFAST progesterone micronized 200 mg capsule 200 mg PO HS Patient Comments: TAKE 1 CAPSULE BY MOUTH ONCE DAILY AT NIGHT metformin 500 mg tablet extended release 24 hr 1,500 mg PO BID Patient Comments: TAKE 3 TABLETS BY MOUTH ONCE DAILY WITH DINNER. DO NOT CRUSH, CHEW, OR SPLIT. sertraline 50 mg tablet 150 mg PO HS Patient Comments: TAKE 3 TABLETS BY MOUTH ONCE DAILY AT NIGHT cyclobenzaprine 5 mg tablet 5 mg PO TIDP PRN (Reason: Muscle Spasm) Patient Comments: TAKE 1 TABLET BY MOUTH THREE TIMES DAILY NEEDED FOR MUSCLE SPASM PNV cmb#95-ferrous fumarate-FA [] 28 mg iron- 800 mcg tablet 1 tab PO DAILY Patient Comments: TAKE 1 TABLET BY MOUTH ONCE DAILY levalbuterol tartrate [Xopenex HFA] 45 mcg/actuation HFA aerosol inhaler 2 inh inhalation Q4H PRN (Reason: shortness of breath) Qty: 15 0RF albuterol sulfate 18 GM HFA aerosol inhaler 1 - 2 puffs IH Q4-6H PRN (Reason: Shortness Of Breath Or Wheezing) Referrals Follow up/Referrals: Mitzy Hernandez [Primary Care Provider] - See instructions Clinical Impressions Clinical Impression: Left against medical advice Instructions Patient Instructions: DI for Acute Abdominal Pain Discharge ED Provider: Rula Lambert General Adult HPI General Chief complaint: Abdominal Pain Stated complaint: ? 4 weeks ,left side pressure Time Seen by Provider: 06/27/23 00:37 Mode of Arrival: Ambulatory Source of Information: Patient Limitations: No Limitations Description of Symptoms (Recalled from ER Triage Doc. by RN): abdominal pain in left lower quadrant, has Mirana placed; menstrual cycle 4 days late; 4 home test +. History of Present Illness HPI narrative: This 28-year-old female G3, P2 presents to the emergency department with concerns of left lower quadrant pain. Patient states she has a 1-year-old and got a Mirena placed for control but has not had a period in over 4 weeks. She has had 4 positive home test. She states I even took the ones that tell you the number of weeks and it said for weeks . Patient states she is having some left lower quadrant pain. She states it feels similar to PCOS cyst pain but she went on the Internet and became concerned for ectopic. She talked to her doctor who stated ectopics can rupture so she presented to the emergency department for evaluation. Patient does states she had vaginal bleeding yesterday. She states she was excited because she thought she was getting her normal menstrual cycle but the bleeding stopped after a short time yesterday and she has not had any return of it. She denies dysuria. She denies any headache, chest pain, dizziness, nausea, or vomiting. Patient states she does feel like she is based off her symptoms. Related Data Home Medications Medication Instructions Recorded Confirmed albuterol sulfate 90 mcg/actuation 1 - 2 puffs IH Q4-6H PRN Shortness 11/04/19 02/25/23 aerosol inhaler Of Domitila
[2023-06-27 01:33] LABS: Amorphous Sediment,Urine 2+ /lpf; Bacteria,Urine 3+ /lpf; Squamous Epithelial Cell,Urine Occasional #/hpf (0-5)
[2023-06-27 01:35] LABS: Alanine Aminotransferase 27 U/L (12-78); Albumin Level 4.4 g/dl (3.5-5.0); Albumin/Globulin Ratio 1.3 (1.1-1.8); Alkaline Phosphatase 46 U/L (38-126); Anion Gap 16.8 mEq/L (5-15); Aspartate Amino Transferase 29 U/L (14-36); Bilirubin,Total 0.3 mg/dl (0.2-1.3); Blood Urea Nitrogen 16 mg/dl (7-17); Calcium 9.4 mg/dl (8.4-10.2); Carbon Dioxide 21 mmol/L (22.0-30.0); Chloride 104 mmol/L (98-107); Creatinine Clearance Estimated 160 mL/min (50-200); Estimated Glomerular Filt Rate 74 ml/min (>60); GFR (African American) 90 ML/MIN (>60); Globulin 3.4 g/dL (1.3-3.2); Glucose 92 mg/dl (74-100); Potassium 3.8 mmoL/L (3.5-5.1); Sodium 138 mmol/L (136-145); Total Protein,Serum 7.8 g/dl (6.3-8.2)
--- NOTE | 2023-06-27 01:53 | PC.NURSE ---
Spoke with Alissa in lab. She advised she had to restart the Beta HCG quant and advised it would be approximately 20 minutes. Waiting on these results to call u/s
[2023-06-27 02:14] LABS: HCG,Quantitative 1365 mIU/ml (0-5.42)
--- NOTE | 2023-06-27 02:17 | PC.NURSE ---
Notified RAD to call u/s
[2023-06-27 02:21] VITALS: BP 125/81; PULSE 66; O2SAT 97
--- NOTE | 2023-06-27 02:53 | PC.NURSE ---
PT gone to u/s
[2023-06-27 06:35] VITALS: BP 0/0; PULSE 0; RESP 0; TEMP -17.7; TEMP 0
--- NOTE | 2023-06-27 10:26 | PC.NURSE ---
voicemail left for pt at this time requesting a call back to talk to pt about need for recommended follow up per ER MD.
--- NOTE | 2023-06-27 13:14 | PC.NURSE ---
made contact with pt at this time. Explained to pt that per ER MD recommendations pt should have a repeat u/s and HCG level on Thursday, at this time based on u/s results from early this morning ectopic could not be fully ruled out. Pt verbalized understanding of need for f/u. Pt states she has an SPOT CLEANER that she is already established with at [facility] through , states she planned to call them on thursday. Explained to pt that is she began having abd/pelvic pain she would need to return to ER for evaluation, Pt verbalized understanding.
== END 2023-06-27 04:30 | disposition left against medical advice (07) ==
PROVIDERS: Emergency Provider Emergency Medicine; PCP Nurse Practitioner Family
DX: O26.31 Retained intrauterine contraceptive device in pregnancy, first trimester (principal); O26.891 Other specified pregnancy related conditions, first trimester; R10.32 Left lower quadrant pain; Z3A.01 Less than 8 weeks gestation of pregnancy
CPT/HCPCS: 76817; 80053; 81001; 84702; 85025; 87086; 99285

== ENCOUNTER 2024-01-17 18:48 | Outpatient (CLI) | payer BC, SELFPAY ==
[2024-01-17 19:05] VITALS: BP 125/67; PULSE 94; RESP 18; TEMP 36.7; O2SAT 99; BMI 48.2
[2024-01-17 19:07] VITALS: BP 125/67; PULSE 94; RESP 18; TEMP 36.8; O2SAT 99; BMI 48.2
[2024-01-17 19:08] LABS: Microscopic, Urine URINE MICROSCOPIC (MICROSCOPIC)
[2024-01-17 19:12] LABS: Appearance,Urine CLEAR (Clear); Blood, Urine Negative (Negative); Color,Urine DARK YELLOW (Yellow); Glucose,Urine (UA) Negative (Negative); Ketones,Urine 1+ (Negative); Leukocyte Esterase,Urine Negative (Negative); Nitrate,Urine Negative (Negative); PH,Urine 6.5 (5.0-8.5); Protein,Urine TRACE (Negative); Specific Gravity, Urine >= 1.030 (1.005-1.030); Urobilinogen,Urine 0.2 EU/dl (0.2)
[2024-01-17 19:13] LABS: Bilirubin,Urine 1+ (Negative)
[2024-01-17 19:22] LABS: Benzodiazepines Screen,Urine Negative ng/ml (<200)
[2024-01-17 19:23] LABS: Amphetamine/Metha Screen,Urine Negative ng/ml (<1000); Barbiturates Screen,Urine Negative ng/ml (<200)
[2024-01-17 19:24] LABS: Bacteria,Urine 1+ /lpf; Cannabinoid Screen,Urine Positive ng/ml (<50); Mucus,Urine 1+ /lpf
[2024-01-17 19:25] LABS: Cocaine Screen,Urine Negative ng/ml (<300); Methadone Screen,Urine Negative ng/ml (<300)
[2024-01-17 19:26] LABS: Opiate Screen,Urine Negative ng/ml (<300)
[2024-01-17 19:27] LABS: Phencyclidine Screen,Urine Negative ng/ml (<25)
[2024-01-17] MEDS: LACTATED RINGERS 1000ML 1,000 ML 999 ML IV (19:42)
[2024-01-17] MEDS: TERBUTALINE SULFATE 1MG/ML VIAL 0.25 MG SQ (19:42)
[2024-01-17] MEDS: CEFTRIAXONE SODIUM 1 GM in 0.9 % SODIUM CHLORIDE 50 ML IV (20:25)
== END 2024-01-17 20:50 | disposition home or self-care (01) ==
LOC: OBOUT 18:50 → OB 18:51
PROVIDERS: PCP Nurse Practitioner Family; Visit Provider Obstetrics & Gynecology
DX: O26.893 Other specified pregnancy related conditions, third trimester (principal); Z3A.34 34 weeks gestation of pregnancy; R10.2 Pelvic and perineal pain
CPT/HCPCS: 80307; 81001; G0463; J0696

== ENCOUNTER 2024-02-04 01:18 | Inpatient (IN) | payer BC, SELFPAY ==
[2024-02-03 23:03] VITALS: BMI 49.9
[2024-02-03 23:06] VITALS: BP 151/83; PULSE 104; RESP 19; TEMP 37.2; O2SAT 100; BMI 49.9
[2024-02-03 23:26] LABS: Microscopic, Urine URINE MICROSCOPIC (MICROSCOPIC)
[2024-02-03 23:28] LABS: Appearance,Urine CLEAR (Clear); Bilirubin,Urine Negative (Negative); Blood, Urine Negative (Negative); Color,Urine YELLOW (Yellow); Glucose,Urine (UA) Negative (Negative); Ketones,Urine Negative (Negative); Leukocyte Esterase,Urine 1+ (Negative); Nitrate,Urine Negative (Negative); Protein,Urine Negative (Negative); Urobilinogen,Urine 0.2 EU/dl (0.2)
[2024-02-03 23:45] LABS: Squamous Epithelial Cell,Urine Occasional #/hpf (0-5)
[2024-02-03] MEDS: LACTATED RINGERS 1000ML 1,000 ML 999 ML IV (23:49)
[2024-02-04] MEDS: SODIUM CHLORIDE 0.9% 10ML FLUSH SYRINGE 10 ML IV (00:58)
[2024-02-04] MEDS: LACTATED RINGERS 1000ML 1,000 ML 999 ML IV (00:59)
[2024-02-04 01:14] LABS: Benzodiazepines Screen,Urine Negative ng/ml (<200)
[2024-02-04 01:15] LABS: Amphetamine/Metha Screen,Urine Negative ng/ml (<1000); Barbiturates Screen,Urine Negative ng/ml (<200)
[2024-02-04 01:16] LABS: Methadone Screen,Urine Negative ng/ml (<300)
[2024-02-04 01:17] LABS: Cannabinoid Screen,Urine Negative ng/ml (<50); Cocaine Screen,Urine Negative ng/ml (<300)
[2024-02-04 01:19] LABS: Opiate Screen,Urine Negative ng/ml (<300); Phencyclidine Screen,Urine Negative ng/ml (<25)
[2024-02-04 01:39] LABS: Basophils # 0.1 K/mm3 (0-0.2); Basophils % 0.7 % (0.1-2.0); Eosinophils # 0.5 K/mm3 (0.0-0.4); Eosinophils % 2.8 % (0.1-12.0); Hematocrit 39.4 % (37.0-47.0); Hemoglobin 12.9 g/dL (12.2-16.2); Lymphocytes # 2.4 K/mm3 (0.7-4.5); Lymphocytes % 14.9 % (10-50); Mean Corpuscular HGB Conc 32.9 g/dL (31.8-35.4); Mean Corpuscular Hemoglobin 29.4 pg (27.0-31.2); Mean Corpuscular Volume 89.5 fl (81-99); Mean Platelet Volume 8.5 fl (7.4-10.4); Monocytes # 0.8 K/mm3 (0.1-1.0); Neutrophils # 12.5 K/mm3 (1.8-7.8); Neutrophils % 76.6 % (37.0-80.0); Platelet Count 171 K/mm3 (142-424); Red Cell Distribution Width 13.7 % (11.5-17.5); White Blood Count 16.3 K/mm3 (4.8-10.8)
--- NOTE | 2024-02-04 01:39 | EXP.OB.APHP ---
OB - H&P: HPI Antepartum History of Present Illness Chief complaint: Painful uterine contractions History of present illness: Ms Neli Bowman is a 28 yo at 36w5d who presents to [facility] Labor and Delivery with complaint of painful uterine contractions that started after slipping on a ball and falling on her buttocks around 2230 tonight. She is an unattached patient. She has received care with Dr. Greer in [place]. She states this is complicated by GHTN and GDM. She states she is taking Labetalol twice a day but cannot remember the dose and Metformin 500 mg daily. Shew as on 500 TID early in but it was decreased and she reports good glycemic control. History of x 1 and x 1. History of marijuana use. Baby is active. She was given IV fluids and monitored. Contractions increased in intensity and frequency over an hour. Cervical exam 2/50/high on admission. Cervix was rechecked after an hour and demonstrated 3/60/-3, head engaged. She was breathing through contractions. . History of Present Obstetrical complications: gestational diabetes, gestational hypertension and previous Labs Blood type: O (+) positive Rubella: unknown RPR/VDRL: unknown GBS status: unknown HBsAG: unknown [facility] Disclaimer: The information contained in this section may have been updated after the patient was seen, as this information can be updated by other users. Medical History (Updated 02/04/24 @ 01:52 by Chasidy Curran DO) labor Anxiety Gestational diabetes mellitus Gestational hypertension Maternal obesity affecting , antepartum with 36 completed weeks gestation Surgical History (Updated 02/04/24 @ 01:52 by Chasidy Curran DO) History of section complicating Social History Smoking Status: Never smoker alcohol intake: never current occupational status: unemployed Travel in the last 8 weeks: None household members: other Review of Systems Review of Systems Review of systems:: pertinent systems reviewed and negative unless documented below *Genitourinary Comments: + contractions, pelvic pressure Meds Home Medications and Allergies Home Medications Medication Instructions Recorded Confirmed Type albuterol sulfate 90 mcg/actuation 1 - 2 puffs IH Q4-6H PRN Shortness 11/04/19 02/25/23 History aerosol inhaler Of Breath Or Wheezing cetirizine 10 mg tablet 10 mg PO DAILY Allergy symptoms 02/25/23 02/25/23 History cyclobenzaprine 5 mg tablet 5 mg PO TIDP PRN Muscle Spasm 02/25/23 02/25/23 History hydroxyzine pamoate 100 mg capsule 200 mg PO BID Anxiety 02/25/23 02/25/23 History ibuprofen 800 mg tablet 800 mg PO TIDP PRN Pain 02/25/23 02/25/23 History levalbuterol tartrate 45 2 inh inhalation Q4H PRN shortness 02/25/23 Rx mcg/actuation aerosol inhaler of breath #15 grams (Xopenex HFA) metformin 500 mg tablet,extended 1,500 mg PO BID PCOS 02/25/23 02/25/23 History release 24 hr phentermine 37.5 mg tablet 37.5 mg PO DAILY Weight loss 02/25/23 02/25/23 History vit no.95-ferrous 1 tab PO DAILY Supplement 02/25/23 02/25/23 History fumarate 28 mg-folic acid 800 mcg tablet () progesterone micronized 200 mg 200 mg PO HS hormone 02/25/23 02/25/23 History capsule propranolol 60 mg capsule,24 60 mg PO DAILY anxitey 02/25/23 02/25/23 History hr,extended release sertraline 50 mg tablet 150 mg PO HS Depression 02/25/23 02/25/23 History valacyclovir 1 gram tablet 1,000 mg PO DAILY . 02/25/23 02/25/23 History New Prescriptions to Start Prescriptions: Allergies Allergy/AdvReac Type Severity Reaction Status Date / Time buspirone AdvReac Intermediate Other Verified 02/04/24 01:37 OB - H&P: Exam Physical Exam Vital signs: Temp Pulse Resp BP Pulse Ox O2 Del Method 99.0 F 104 H 19 151/83 H 100 Room Air 02/03/24 23:06 02/03/24 23:06 02/03/24 23:06 02/03/24 23:06 02/03/24 23:06 02/03/24 23:06 Constitutional mild distress and cooperative Routine HEENT Exam Head: Present normocephalic and atraumatic Eye: Absent conjunctivae pink ENT: Present mucous membranes moist Routine Neck Exam Present full ROM Routine Respiratory Exam Present CTA bilaterally and normal respiratory effort Routine Cardiovascular Exam Present RRR Routine Abdominal Exam Present soft (Gravid); Absent tenderness Routine Rectal Exam Patient deferred: visual exam Routine Exam External: Present normal urethra appearance; Absent erythema, tenderness, lesions or lacerations Routine Extremities Exam Present full ROM; Absent edema or calf tenderness Routine Neurological Exam Present alert, moving all extremities and normal speech Routine Psychiatric Exam Present cooperative and anxious Detailed Labor and Delivery Exam Dilation (cm): 3 Effacement (%): 60 station: -3 Consistency: soft Membranes: intact Baseline heart rate: 135 monitor accelerations: Present monitor decelerations: None detention variability: Moderate (11-25) Contraction frequency (min): 2 OB - Results Labs Labs: Urine 02/03/24 Range/Units 23:01 Urine Color Yellow (Yellow) Urine Appearance Clear (Clear) Urine pH 7.0 (5.0-8.5) Ur Specific [place] 1.010 (1.005-1.030) Urine Protein Negative (Negative) Urine Glucose (UA) Negative (Negative) OB - A/P Antepartum (1) with 36 completed weeks gestation: Status: Acute (2) labor: Status: Acute (3) History of section complicating : Status: Acute (4) Maternal obesity affecting , antepartum: Status: Acute (5) Gestational hypertension: Status: Acute (6) Gestational diabetes mellitus: Status: Acute (7) Anxiety: Status: Acute Additional Plan Planning to breastfeed?: No Additional Information:: Admit to [facility] for repeat secondary to labor with history of x 1 Discussed risks, benefits, alternatives, expectations and possible complications of surgery. All questions addressed and answered. She voiced understanding of risks and possible complications. Consent form signed. Proceed with repeat
[2024-02-04 01:41] LABS: MANUAL DIFFERENTIAL MANUAL DIFFERENTIAL (MANUAL DIFF)
[2024-02-04 01:43] LABS: Alanine Aminotransferase 25 U/L (12-78); Albumin Level 3.5 g/dl (3.5-5.0); Albumin/Globulin Ratio 1.1 (1.1-1.8); Alkaline Phosphatase 79 U/L (38-126); Anion Gap 9.9 mEq/L (5-15); Aspartate Amino Transferase 28 U/L (14-36); Bilirubin,Total 0.4 mg/dl (0.2-1.3); Blood Urea Nitrogen 4 mg/dl (7-17); Calcium 9.4 mg/dl (8.4-10.2); Carbon Dioxide 22 mmol/L (22.0-30.0); Chloride 106 mmol/L (98-107); Creatinine Clearance Estimated 187 mL/min (50-200); Estimated Glomerular Filt Rate 189 ml/min (>60); GFR (African American) 228 ML/MIN (>60); Globulin 3.1 g/dL (1.3-3.2); Glucose 96 mg/dl (74-100); Potassium 3.9 mmoL/L (3.5-5.1); Sodium 134 mmol/L (136-145); Total Protein,Serum 6.6 g/dl (6.3-8.2)
[2024-02-04] MEDS: CEFAZOLIN SODIUM 3 GM in 0.9 % SODIUM CHLORIDE 100 ML IV (02:14)
[2024-02-04] MEDS: TRANEXAMIC ACID 1,000 MG/10 ML VIAL 1000 MG (03:12)
[2024-02-04 03:19] LABS: Cord Blood PH 7.32 (7.35-7.45)
[2024-02-04 03:26] LABS: Eosinophils % 2 % (0-3); Lymphocytes % 25 % (10-50); Monocytes % 6 % (2-9); Neutrophils % 67 % (42-76); Platelet Estimate Normal; RBC Morphology Normal; Total Cells Counted 100
[2024-02-04 04:10] VITALS: BP 132/71; PULSE 83; RESP 18; TEMP 36.6; O2SAT 100
--- NOTE | 2024-02-04 04:16 | EXP.OP.NOTE ---
Date of procedure: 02/04/24 Pre-op Diagnosis:: 1. IUP at 36w5d 2. labor 3. History of x 1 4. GHTN 5. GDM 6. Anxiety 7. Depression 8. Maternal obesity Post-op Diagnosis:: 1. IUP at 36w5d 2. labor 3. History of x 1 4. GHTN 5. GDM 6. Anxiety 7. Depression 8. Maternal obesity 9. Intraabdominal adhesions Procedure performed:: 1. Lysis of adhesions 2. Repeat Low Transverse Section Surgeon:: Chasidy Curran DO Digital Photo Printer(s):: [facility] MD PHYSICIAN DERMATOLOGIST:: Other (Saldaris, MD PHYSICIAN DERMATOLOGIST) Anesthesia: spinal Estimated blood loss (mL): 650 Clinical Note:: Ms Neli Bowman is a 28 yo at 36w5d who presented to [facility] Labor and Delivery with complaint of painful uterine contractions that started after slipping on a ball and falling on her buttocks around 2230. She is an unattached patient. She has received care with Dr. Greer in [place]. She states this is complicated by GHTN and GDM. She states she is taking Labetalol twice a day but cannot remember the dose and Metformin 500 mg daily. She was on 500 mg TID early in but it was decreased and she reports good glycemic control. History of x 1 and x 1. History of marijuana use. Baby is active. She was given IV fluids and monitored. Contractions increased in intensity and frequency over an hour. Cervical exam 2/50/high on admission. Cervix was rechecked after an hour and demonstrated 3/60/-3, head engaged. She was breathing through contractions. Decision was made to proceed with repeat . . Operative findings:: 1. Intra-abdominal adhesions noted under fascia. Omentum adhered to anterior abdominal wall and rectus muscle. Bladder pulled up under inferior fascial edge. Adhesions between uterus and bladder easily with Metzenbaum scissors 2. Live female baby, Marilu Barlow, weighiing 8 lb 11o z. APGARs 5 (1 min), 6 (5 min), 6 (10 min). Cord pH 7.32 3. Polyhydramnios 3. Grossly normal bilateral fallopian tubes and ovaries Operative note:: The risks, benefits and alternatives of the procedure were reviewed with the patient. Informed consent was obtained. Patient was taken to the operating room where spinal anesthesia was placed. The patient received 3 grams of Ancef preoperatively. Patient was placed in dorsal supine position with a leftward tilt. SCDs in place. Rehman catheter was inserted and draining clear urine prior to the start of the procedure. heart tones were obtained. Patient was then prepped and draped in normal sterile fashion. Allis clamp test was performed to ensure adequate anesthesia. A skin incision was made through prior Pfannenstiel scar. This was carried through to underlying layer of fascia. Fascia was incised in midline, extended laterally with Childs scissors. Superior aspect of fascial incision was grasped with two Joaquin clamps, elevated up, and rectus muscle dissected off bluntly and sharply with Childs scissors. Inferior aspect of fascial incision was grasped with two Joaquin clamps, elevated up, very little rectus muscle dissected off bluntly and sharply with Childs scissor secondary to adhesions and bladder pulled up onto uterus and under inferoir fascial edge at level of rectus muscle. No peritoneum to enter, omentum laying over uterus. Omentum pushed to left after lysis of adhesions between omentum and rectus muscle. Luis retractor was inserted. The lower uterine segment was incised in a transverse fashion. Light meconium stained amniotic fluid was noted. Head was delivered with some difficulty. Remainder of body was delivered without difficulty. Mouth and nares were bulb suctioned. Spontaneous cry was noted. Delayed cord clamping was performed for 60 seconds. The umbilical cord was clamped and cut. The infant was handed to awaiting pediatric staff in stable condition. Dr. Reyez was present. Apgars were 5(1 min), 6(5 min), 6(10 min). Cord pH was obtained. Cord blood was obtained. Gentle traction on the umbilical cord and uterine fundal massage delivered the placenta. Placenta was intact. Placenta will be sent to pathology for review. Uterus was cleared of all clots and debris with a moist laparotomy sponge. Corners of the uterine incision were grasped with Allis clamps. The uterine incision was reapproximated with # 1 Vicryl suture in a running, locked stitch. Second layer of the same stitch was used to imbricate the incision. Hemostasis was noted. Posterior cul-de-sac was cleaned with moist laparotomy sponge. Gutters cleared of all clots and debris with a moist laparotomy sponge. Reinspection of the lower uterine segment demonstrated small amount of oozing. Surgicel powder and gel foam was applied over uterine incision. Hemostasis was noted. At this point all instruments and sponges were removed from the pelvis.? The corners of the fascia were grasped with Joaquin clamps, and the fascia was reapproximated with two # 1 Vicryl suture overlapped to the right of midline. Subcutaneous tissue was irrigated with clear return of fluids. The subcutaneous tissue was reapproximated with 3-0 Vicryl. The skin was reapproximated with Insorb mirella. Telfa was placed over closed Pfannenstiel skin incision. At the end of the procedure, the uterus was firm with minimal vaginal bleeding. Patient tolerated the procedure well. Instrument, sponges and needle counts were correct x 2. Mom and baby were transported to recovery room in stable condition. Condition: stable Disposition: floor Specimens:: 1. Placenta and umbilical cord 2. Cord blood Complications:: None
[2024-02-04 04:20] VITALS: BP 137/81; PULSE 91; RESP 18; TEMP 36.6; O2SAT 100
--- NOTE | 2024-02-04 04:21 | P.PNANES_ITS ---
[facility] Disclaimer: The information contained in this section may have been updated after the patient was seen, as this information can be updated by other users. Medical History (Updated 02/04/24 @ 01:52 by Chasidy Curran DO) labor Anxiety Gestational diabetes mellitus Gestational hypertension Maternal obesity affecting , antepartum with 36 completed weeks gestation Surgical History (Updated 02/04/24 @ 01:52 by Chasidy Curran DO) History of section complicating Social History Smoking Status: Never smoker alcohol intake: never substance use type: denies use current occupational status: unemployed Travel in the last 8 weeks: None household members: other [facility] Anesthesia Checklist Patient Identification Patient Identification: Arm Band, Family and Verbal (Name & ) Structural Data Admitted From: Inpatient Planned Operative Procedure/s: Repeat C-sxn Consent for Planned Operative Procedure(s) Verified: Yes Verified Documents: Surgical Consent and History and Physical NPO Status Verified Time NPO: 21:00 Chart Verification Results Verified: CBC, BMP, ECG and Chest Xray Additional verifications Patient : Yes Anesthesia Reactions: No Cardiovascular Assessment Heart Sounds: S1 & S2 Pulse Rhythm: Irregular Peripheral Edema: Yes (3+ ALBERTO LE) Airway Assessment Mallampati Score:: Class II C-Spine Mobility Assessed: Yes (FROM) TMJ Mobility Assessed: Yes Dentition: Good Dentition (Nothing loose per pt.) Neurological Assessment Level of Consciousness: Awake, Alert, Appropriate and Follows Commands Hx Seizures: No Numbness or tingling in extremities: No Anesthesia Plan Anesthesia Risk discussed: Yes Anesthesia Plan: Verified ASA Class: III Anesthesia Type: Spinal
--- NOTE | 2024-02-04 04:23 | EXP.ANES.I ---
[facility] Anesthesia Record Part I Anesthesia Record I Intake, IV Amount: 1,500 Hydration: Adequate Estimated blood loss (mL): 650 Urine output (mL): 600 Blood Products used (#): none Blood Pressure: 132/71 SaO2: 100 Pulse Rate: 85 Airway Patency: Patent Respiratory Rate: 18 Temperature: 97.0 F Patient is:: Awake (Talking) and Stable Stable to PACU at:: 04:15
[2024-02-04 04:24] VITALS: BP 132/71; PULSE 85; RESP 18; TEMP 36.1; O2SAT 100
[2024-02-04 04:30] VITALS: BP 139/73; PULSE 86; RESP 18; TEMP 36.6; O2SAT 100
[2024-02-04 04:40] VITALS: BP 138/81; PULSE 95; RESP 18; TEMP 36.6; O2SAT 100
[2024-02-04] MEDS: LACTATED RINGERS 1000ML 1,000 ML 125 ML IV (05:00)
[2024-02-04] MEDS: PROMETHAZINE HCL 25MG/ML 1ML VIAL 12.5 MG IV (05:15)
[2024-02-04] MEDS: OXYTOCIN/RINGERS LACTATE 30 UNITS/500 ML BAG 40 UNITS IV (05:20)
[2024-02-04] MEDS: KETOROLAC 30MG/ML VIAL 30 MG IV ×3 (06:21→21:49)
[2024-02-04] MEDS: ACETAMINOPHEN 500MG TAB 1000 MG PO ×3 (06:21→23:38)
[2024-02-04] MEDS: OXYCODONE 5MG IMMEDIATE RELEASE TABLET 5 MG PO ×3 (06:22→23:38)
[2024-02-04 07:06] LABS: Microscopic,Cath URINE MICROSCOPIC (MICROSCOPIC)
[2024-02-04 08:29] LABS: Appearance,Urine/Cath CLEAR (Clear); Bilirubin,Cath Negative (Negative); Blood, Urine/Cath Negative (Negative); Color,Urine/Cath YELLOW (Yellow); Glucose,Urine/Cath (UA) Negative (Negative); Ketones,Urine/Cath Negative (Negative); Leukocyte Esterase,Cath Negative (Negative); Nitrate,Cath Negative (Negative); Protein,Urine/Cath Negative (Negative); Specific Gravity, Urine/Cath 1.015 (1.005-1.030); Urobilinogen,Cath 0.2 EU/dl (0.2)
[2024-02-04 08:48] LABS: Bacteria,Urine/Cath TRACE /lpf; Squamous Epithelial Ur./Cath Occasional #/hpf (0-5)
--- NOTE | 2024-02-04 09:29 | P.PNANES_ITS ---
[facility] Anesthesia Record Part II Anesthesia Record Part II Discharge Time: 04:40 Destination: Obstetric Gynecology Dept PACU nurse assessment reviewed?: Yes Patient Condition:: Good Anesthesia Complications:: None Swallowing reflex intact?: Yes Airway Patency: Patent Cyanosis?: No Blood Pressure: 138/81 SaO2: 100 Respiratory Rate: 18 Pulse Rate: 95 Temperature: 97.8 F Mental Status: Alert & Oriented Pain level:: 0 Nausea and/or vomitting:: None Intake, IV Amount: 1,500 Hydration: Adequate
[2024-02-04 09:31] VITALS: BP 138/81; PULSE 95; RESP 18; TEMP 36.6; O2SAT 100
[2024-02-04] MEDS: SERTRALINE 100MG TABLET 200 MG PO (10:04)
[2024-02-04] MEDS: hydrOXYzine pamoate 25MG CAPSULE 200 MG PO ×2 (10:05→21:47)
[2024-02-04] MEDS: lamoTRIgine 100MG TABLET 50 MG PO ×2 (10:05→21:48)
[2024-02-04] MEDS: POLYETHYLENE GLYCOL 3350 17 GM PACKET PO (10:05)
[2024-02-04] MEDS: ZOLPIDEM TARTRATE 10 MG TABLET PO ×2 (10:05→21:49)
[2024-02-04] MEDS: CEFAZOLIN SODIUM 2 GM in 0.9 % SODIUM CHLORIDE 100 ML IV ×2 (10:06→18:40)
[2024-02-04] MEDS: PRENATAL MULTIVITAMIN W/IRON 1 EACH PO (16:59)
[2024-02-04] MEDS: HYDROMORPHONE 2MG/ML SYRINGE 2 MG IV (18:40)
[2024-02-04] MEDS: SENNA 8.6MG TABLET 8.59999999999999964 MG PO (23:38)
[2024-02-04] MEDS: SIMETHICONE 80MG CHEWABLE TABLET 160 MG PO (23:38)
[2024-02-05] MEDS: HYDROMORPHONE 2MG/ML SYRINGE 2 MG IV (01:06)
[2024-02-05] MEDS: SODIUM CHLORIDE 0.9% 10ML FLUSH SYRINGE 10 ML IV (01:07)
[2024-02-05] MEDS: OXYCODONE 5MG IMMEDIATE RELEASE TABLET 5 MG PO ×2 (03:57→16:53)
[2024-02-05] MEDS: IBUPROFEN 400 MG TABLET 800 MG PO ×3 (05:32→22:33)
[2024-02-05] MEDS: ACETAMINOPHEN 500MG TAB 1000 MG PO ×3 (05:32→22:32)
[2024-02-05 06:48] LABS: Basophils # 0.1 K/mm3 (0-0.2); Basophils % 0.9 % (0.1-2.0); Eosinophils # 0.3 K/mm3 (0.0-0.4); Eosinophils % 2.7 % (0.1-12.0); Hematocrit 37.4 % (37.0-47.0); Hemoglobin 12.4 g/dL (12.2-16.2); Lymphocytes % 16.4 % (10-50); Mean Corpuscular Hemoglobin 30.1 pg (27.0-31.2); Mean Corpuscular Volume 91.1 fl (81-99); Mean Platelet Volume 8.6 fl (7.4-10.4); Monocytes # 0.6 K/mm3 (0.1-1.0); Monocytes % 5.1 % (1.7-9.3); Neutrophils % 74.9 % (37.0-80.0); Platelet Count 135 K/mm3 (142-424); Red Blood Count 4.11 M/mm3 (4.20-5.40); Red Cell Distribution Width 13.8 % (11.5-17.5)
--- NOTE | 2024-02-05 09:06 | SW/DCPLANNER ---
Addendum entered by Sadie Champion 02/08/24 07:27: Infant cord screen is NEGATIVE. Addendum entered by Sadie Champion 02/05/24 11:05: Patient's Psychiatrist is Valerie Francois [phone]. Original Note: I received a consult on this patient regarding history of THC use. Patient tested positive for THC on 01/17/2024. Patient and infant urine drug screen were negative at admission. Patient stated that THC use is due to severe PTSD. Patient delivered female (Marilu Cunha) on 02/04/2024. 's father (Darrius Cunha 10/20/93) was present at the time of my visit. Patient stated this is her third and no past Social Service involvement. Patient, Darrius and three children will reside at [address] [place] [address] in [place] [address]. Patient's contact number is [phone]. Patient is currently established w/ WIC and is NOT interested in HANDS. Patient stated that she will have the following items at home: crib, carseat, clothing, diapers and will be bottle feeding. PED MD will be Dr Chong and patient stated they will have transportation to all follow up appointments. Discharge date is unknown at this time. Patient is currently established w/ [facility] and Psychiatrist. Patient does not have any further needs/questions at this time. Per OB Nursing staff (Marla) patient is appropriate w/ infant.
--- NOTE | 2024-02-05 09:08 | EXP.ACUTE.PN ---
Subjective *Date: 02/05/24 *Time: 09:08 Interval history: She is doing well this morning. Her pain is reasonably well-controlled. She is bottlefeeding. Her lochia is normal. Medical Exam Vital signs and Labs for Last 24 Hours: Vital Signs Resp 02/04/24 09:31 18 Laboratory Results - last 24 hr 02/05/24 06:03: WBC 12.0 H D, RBC 4.11 L, Hgb 12.4, Hct 37.4, MCV 91.1, MCH 30.1, MCHC 33.0, RDW 13.8, Plt Count 135 L, MPV 8.6, Neut % (Auto) 74.9, Lymph % (Auto) 16.4, [place] % (Auto) 5.1, Eos % (Auto) 2.7, Baso % (Auto) 0.9, Neut # (Auto) 9.0 H, Lymph # (Auto) 2.0, [place] # (Auto) 0.6, Eos # (Auto) 0.3, Baso # (Auto) 0.1 I & O for Labs for Last 24 Hours: Intake & Output 02/02/24 02/03/24 02/04/24 02/05/24 11:59 11:59 11:59 11:59 Intake Total 3000 / 3000 Balance 3000 / 3000 Weight 300 lb Head: Present atraumatic and normocephalic ENT: Present normal exam Neck: Present normal inspection Respiratory: Present normal respiratory effort; Absent accessory muscle use Assessment and Plan *Assessment and plan (1) History of section complicating : Status: Acute Category: Surgical Code(s): O34.219 - Maternal care for unspecified type scar from previous delivery (2) Gestational diabetes mellitus: Status: Acute Qualifiers: Gestational diabetes mellitus control: diet-controlled Trimester: third trimester Qualified Code(s): O24.410 - Gestational diabetes mellitus in , diet controlled Category: Medical Code(s): O24.419 - Gestational diabetes mellitus in , unspecified control (3) Gestational hypertension: Status: Acute Qualifiers: Trimester: third trimester Qualified Code(s): O13.3 - Gestational [-induced] hypertension without significant proteinuria, third trimester Category: Medical Code(s): O13.9 - Gestational [-induced] hypertension without significant proteinuria, unspecified trimester (4) Maternal obesity affecting , antepartum: Status: Acute Qualifiers: Obesity type affecting : other obesity due to excess calories Qualified Code(s): O99.210 - Obesity complicating , unspecified trimester; E66.09 - Other obesity due to excess calories Category: Medical Code(s): O99.210 - Obesity complicating , unspecified trimester (5) delivery delivered: Status: Acute Category: Medical Code(s): O82 - Encounter for delivery without indication Plan She is doing very well this morning. Her pain is reasonably well-controlled. She is receiving scheduled acetaminophen and will start receiving scheduled ibuprofen today. We will also increase the dosage of her oxycodone to 10 mg. We will plan to discharge her in 48 hours.
[2024-02-05] MEDS: SERTRALINE 100MG TABLET 200 MG PO (09:24)
[2024-02-05] MEDS: POLYETHYLENE GLYCOL 3350 17 GM PACKET PO (09:24)
[2024-02-05] MEDS: lamoTRIgine 100MG TABLET 50 MG PO ×2 (09:25→22:44)
[2024-02-05] MEDS: hydrOXYzine pamoate 25MG CAPSULE 200 MG PO ×2 (09:25→22:32)
[2024-02-05] MEDS: OXYCODONE 5MG IMMEDIATE RELEASE TABLET 10 MG PO ×3 (09:26→22:31)
[2024-02-05] MEDS: PRENATAL MULTIVITAMIN W/IRON 1 EACH PO (16:53)
[2024-02-05] MEDS: SIMETHICONE 80MG CHEWABLE TABLET 160 MG PO (22:32)
[2024-02-05] MEDS: ZOLPIDEM TARTRATE 10 MG TABLET PO (22:44)
[2024-02-05] MEDS: ALPRAZolam 0.5MG TABLET 0.5 MG PO (23:56)
[2024-02-06] MEDS: IBUPROFEN 400 MG TABLET 800 MG PO ×2 (08:34→20:01)
[2024-02-06] MEDS: ALPRAZolam 0.5MG TABLET 0.5 MG PO (08:34)
[2024-02-06] MEDS: ACETAMINOPHEN 500MG TAB 1000 MG PO ×2 (08:34→15:40)
[2024-02-06] MEDS: SERTRALINE 100MG TABLET 200 MG PO (08:35)
[2024-02-06] MEDS: POLYETHYLENE GLYCOL 3350 17 GM PACKET PO (08:35)
[2024-02-06] MEDS: lamoTRIgine 100MG TABLET 50 MG PO ×2 (08:36→20:00)
[2024-02-06] MEDS: hydrOXYzine pamoate 25MG CAPSULE 200 MG PO ×2 (08:39→21:50)
--- NOTE | 2024-02-06 09:33 | EXP.ACUTE.PN ---
Subjective *Date: 02/06/24 *Time: 09:33 Interval history: She is doing well this morning. She was having significant anxiety last night and we did give her some Xanax. She said that this helped with her anxiety. She also has suffered from depression and has had depression in the past. She is taking 200 mg of sertraline. She will continue with this. She also complains of some swelling in her feet and hands and I told her we would go ahead and start Lasix 20 mg. Medical Exam I & O for Labs for Last 24 Hours: Intake & Output 02/03/24 02/04/24 02/05/24 02/06/24 11:59 11:59 11:59 11:59 Intake Total 3000 / 3000 Balance 3000 / 3000 Weight 300 lb Microbiology Reports for the Last 24 Hours: Microbiology 02/03/24 23:01 Urine,Clean Catch Urine Culture - Preliminary Head: Present atraumatic Eyes: Present as per HPI Neck: Present normal inspection Respiratory: Present normal respiratory effort; Absent accessory muscle use Extremities: Present normal inspection and edema (She has 1-2+ edema in her lower legs.) Assessment and Plan *Assessment and plan (1) delivery delivered: Status: Acute Category: Medical Code(s): O82 - Encounter for delivery without indication (2) History of section complicating : Status: Acute Category: Surgical Code(s): O34.219 - Maternal care for unspecified type scar from previous delivery (3) Anxiety: Status: Acute Category: Medical Code(s): F41.9 - Anxiety disorder, unspecified (4) Gestational diabetes mellitus: Status: Acute Qualifiers: Gestational diabetes mellitus control: diet-controlled Trimester: third trimester Qualified Code(s): O24.410 - Gestational diabetes mellitus in , diet controlled Category: Medical Code(s): O24.419 - Gestational diabetes mellitus in , unspecified control (5) Gestational hypertension: Status: Acute Qualifiers: Trimester: third trimester Qualified Code(s): O13.3 - Gestational [-induced] hypertension without significant proteinuria, third trimester Category: Medical Code(s): O13.9 - Gestational [-induced] hypertension without significant proteinuria, unspecified trimester (6) Maternal obesity affecting , antepartum: Status: Acute Qualifiers: Obesity type affecting : other obesity due to excess calories Qualified Code(s): O99.210 - Obesity complicating , unspecified trimester; E66.09 - Other obesity due to excess calories Category: Medical Code(s): O99.210 - Obesity complicating , unspecified trimester Plan She will continue with her sertraline 200 mg. She has Xanax ordered 0.5 mg 3 times daily as necessary for anxiety. I have given her a prescription for Lasix 20 mg to take daily. We will plan to deliver her tomorrow.
[2024-02-06] MEDS: FUROSEMIDE 20MG TABLET 20 MG PO ×2 (09:49→16:07)
--- NOTE | 2024-02-06 13:28 | XR_ITS ---
PROCEDURE INFORMATION: Exam: XR Chest Exam date and time: 02/06/2024 1:43 PM Age: 28 years old Clinical indication: Dyspnea; Patient HX: - 2 days; Additional info: SOA TECHNIQUE: Imaging protocol: Radiologic exam of the chest. Views: 1 view. COMPARISON: CT ANGIO CHEST PE PROTOCOL 02/25/2023 12:23 AM FINDINGS: Lungs: Unremarkable. No consolidation. Pleural spaces: Unremarkable. No pleural effusion. No pneumothorax. Heart/Mediastinum: Unremarkable. No cardiomegaly. Bones/joints: Unremarkable. IMPRESSION: No acute findings.
--- NOTE | 2024-02-06 13:41 | ECG_ITS ---
APPROVED REPORT Exam: Resting ECG HR:98 bpm ECG Measurements Heart Rate 98 AXES WI 133 P 50 QRSd 95 QRS 14 QT 359 T 30 QTc 414 Conclusion SINUS RHYTHM NORMAL ECG Electronically signed by : ROSALIE LAM, 02/07/2024 07:51:51
[2024-02-06 14:01] LABS: C-Reactive Protein 99.4 mg/L (0-4); D-Dimer 0.83 ug/mL (0.0-0.5)
[2024-02-06 14:07] LABS: NT Pro Brain Natriuretic Pep. 90.9 pg/mL (0-125)
[2024-02-06 14:10] LABS: Erythrocyte Sedimentation Rate 44 mm/hr (0-20)
[2024-02-06 14:14] LABS: Basophils # 0.1 K/mm3 (0-0.2); Basophils % 0.8 % (0.1-2.0); Eosinophils # 0.3 K/mm3 (0.0-0.4); Eosinophils % 2.7 % (0.1-12.0); Hematocrit 35.7 % (37.0-47.0); Hemoglobin 11.9 g/dL (12.2-16.2); Lymphocytes % 19.4 % (10-50); Mean Corpuscular HGB Conc 33.2 g/dL (31.8-35.4); Mean Corpuscular Hemoglobin 30.8 pg (27.0-31.2); Mean Corpuscular Volume 92.8 fl (81-99); Mean Platelet Volume 8.4 fl (7.4-10.4); Monocytes # 0.4 K/mm3 (0.1-1.0); Neutrophils # 7.6 K/mm3 (1.8-7.8); Platelet Count 186 K/mm3 (142-424); Red Blood Count 3.85 M/mm3 (4.20-5.40); Red Cell Distribution Width 13.8 % (11.5-17.5); White Blood Count 10.4 K/mm3 (4.8-10.8)
[2024-02-06] MEDS: PRENATAL MULTIVITAMIN W/IRON 1 EACH PO (15:40)
[2024-02-06] MEDS: ZOLPIDEM TARTRATE 10 MG TABLET PO (21:51)
[2024-02-06] MEDS: SIMETHICONE 80MG CHEWABLE TABLET 160 MG PO (21:53)
[2024-02-07] MEDS: ALPRAZolam 0.5MG TABLET 0.5 MG PO
[2024-02-07 04:12] VITALS: BP 133/77; PULSE 88; RESP 18; TEMP 36.7; O2SAT 98
[2024-02-07] MEDS: hydrOXYzine pamoate 25MG CAPSULE 200 MG PO (10:17)
[2024-02-07] MEDS: POLYETHYLENE GLYCOL 3350 17 GM PACKET PO (10:17)
[2024-02-07] MEDS: lamoTRIgine 100MG TABLET 50 MG PO (10:18)
[2024-02-07] MEDS: SERTRALINE 100MG TABLET 200 MG PO (10:18)
--- NOTE | 2024-02-07 10:22 | EXP.DC.SUM ---
General Admission date:: 02/04/24 Discharge date: 02/07/24 HPI HPI HPI: She is a 28-year-old 5 now para 3 who is 36+ weeks gestational age. She has had previous sections and arrived in active labor. She changed her cervix from 2 to 3 cm. As result of that she was offered repeat lower segment transverse section. Hospital Course Hospital Course Hospital Course: On February 04, 2024 she underwent a repeat lower segment transverse section and delivered a liveborn female child at 3:09 AM. The baby weighed 8 pounds 11 ounces and was 19 inches long. She had Apgars of 5 at 1 minute 6 at 5 minutes and 10 at 10 minutes. She has done well and has remained afebrile throughout her hospitalization. She is eating and drinking and ambulating. She is bottlefeeding. Her lochia is normal. Her pain is well-controlled with [id number] analgesics. She did have some anxiety and received oral Xanax that helped with this. She is also been taking sertraline 200 mg daily for her depression and depression that she has had in the past. She had some swelling in her legs and we started her on Lasix. This seemed to help with her leg swelling. We will continue this when she goes home. She will be discharged home to follow-up with Dr. Curran in approximately 2 weeks time. She will continue with her vitamins. She was given a prescription for ibuprofen 800 mg to take up to 3 times daily. She will be given a prescription for Percocet 5/325 number 14 tablets. She has just been taking this irregularly. She will continue Lasix for the next few days. Will give her prescription for 20 mg. She had some shortness of breath on the day prior to discharge and she was worked up for cardiomyopathy. UTILIZATION REVIEW COORDINATOR was normal, chest x-ray was normal. She is feeling better now. We suspect it may have just been some increased anxiety. She was given the usual instructions with respect to limiting her activity, driving and sexual activity. She was given instructions with respect to wound care. She has O Rh+ blood, she is rubella immune and GBS unknown. Exam Data for Last 24 hours Vital signs and Labs for Last 24 Hours: Temp Pulse Resp BP Pulse Ox O2 Del Method 98.1 F 88 18 133/77 98 Room Air 02/07/24 04:12 02/07/24 04:12 02/07/24 04:12 02/07/24 04:12 02/07/24 04:12 02/07/24 04:12 Laboratory Results - last 24 hr 02/04/24 01:10: Crossmatch (AHG) See Detail 02/06/24 13:39: WBC 10.4, RBC 3.85 L, Hgb 11.9 L, Hct 35.7 L, MCV 92.8, MCH 30.8, MCHC 33.2, RDW 13.8, Plt Count 186 D, MPV 8.4, Neut % (Auto) 73.0, Lymph % (Auto) 19.4, [place] % (Auto) 4.0, Eos % (Auto) 2.7, Baso % (Auto) 0.8, Neut # (Auto) 7.6, Lymph # (Auto) 2.0, [place] # (Auto) 0.4, Eos # (Auto) 0.3, Baso # (Auto) 0.1, ESR 44 H, D-Dimer 0.83 H, C-Reactive Protein 99.4 H, NT-Pro-B Natriuret Pep 90.9 I & O for Last 24 hours: Intake & Output 02/04/24 02/05/24 02/06/24 02/07/24 11:59 11:59 11:59 11:59 Intake Total 3000 / 3000 Output Total 400 / 400 Balance 3000 / 3000 -400 / -400 Weight 300 lb Microbiology Reports for the Last 24 Hours: Microbiology 02/03/24 23:01 Urine,Clean Catch Urine Culture - Preliminary Constitutional Constitutional: no acute distress *Routine HEENT Exam Head: Present normocephalic *Routine Respiratory Exam Respiratory: Present normal respiratory effort; Absent accessory muscle use Results Data Completed and Pending Labs on day of discharge: Labs from last 24 hours 02/06/24 02/04/24 13:39 01:10 WBC 10.4 RBC 3.85 L Hgb 11.9 L Hct 35.7 L MCV 92.8 MCH 30.8 MCHC 33.2 RDW 13.8 Plt Count 186 D MPV 8.4 Neut % (Auto) 73.0 Lymph % (Auto) 19.4 [place] % (Auto) 4.0 Eos % (Auto) 2.7 Baso % (Auto) 0.8 Neut # (Auto) 7.6 Lymph # (Auto) 2.0 [place] # (Auto) 0.4 Eos # (Auto) 0.3 Baso # (Auto) 0.1 ESR 44 H D-Dimer 0.83 H C-Reactive Protein 99.4 H NT-Pro-B Natriuret Pep 90.9 Crossmatch (AHG) See Detail Preliminary micro results at discharge 02/03/24 23:01 Urine Culture - Preliminary Urine,Clean Catch DS: Diagnosis Discharge Diagnosis (1) delivery delivered: Status: Acute Code(s): O82 - Encounter for delivery without indication (2) History of section complicating : Status: Acute Code(s): O34.219 - Maternal care for unspecified type scar from previous delivery (3) Anxiety: Status: Acute Code(s): F41.9 - Anxiety disorder, unspecified (4) Gestational diabetes mellitus: Status: Acute Code(s): O24.419 - Gestational diabetes mellitus in , unspecified control Qualifiers: Gestational diabetes mellitus control: diet-controlled Trimester: third trimester Qualified Code(s): O24.410 - Gestational diabetes mellitus in , diet controlled (5) Gestational hypertension: Status: Acute Code(s): O13.9 - Gestational [-induced] hypertension without significant proteinuria, unspecified trimester Qualifiers: Trimester: third trimester Qualified Code(s): O13.3 - Gestational [-induced] hypertension without significant proteinuria, third trimester (6) Maternal obesity affecting , antepartum: Status: Acute Code(s): O99.210 - Obesity complicating , unspecified trimester Qualifiers: Obesity type affecting : other obesity due to excess calories Qualified Code(s): O99.210 - Obesity complicating , unspecified trimester; E66.09 - Other obesity due to excess calories (7) depression: Status: Acute Code(s): F53.0 - depression Meds Home Medications and Allergies Home Medications Medication Instructions Recorded Confirmed Type albuterol sulfate 90 mcg/actuation 1 - 2 puffs IH Q4-6H PRN Shortness 11/04/19 02/04/24 History aerosol inhaler Of Breath Or Wheezing cetirizine 10 mg tablet 10 mg PO DAILY Allergy symptoms 02/25/23 02/04/24 History cyclobenzaprine 5 mg tablet 5 mg PO TIDP PRN Muscle Spasm 02/25/23 02/04/24 History hydroxyzine pamoate 100 mg capsule 200 mg PO BID 02/25/23 02/04/24 History levalbuterol tartrate 45 2 inh inhalation Q4H PRN shortness 02/25/23 02/04/24 Rx mcg/actuation aerosol inhaler of breath #15 grams (Xopenex HFA) metformin 500 mg tablet,extended 500 mg PO TID 02/25/23 02/04/24 History release 24 hr vit no.95-ferrous 1 tab PO DAILY Supplement 02/25/23 02/04/24 History fumarate 28 mg-folic acid 800 mcg tablet () valacyclovir 1 gram tablet 1,000 mg PO DAILY 02/25/23 02/04/24 History labetalol 200 mg tablet 200 mg PO BID 02/04/24 02/04/24 History lamotrigine 25 mg tablet (Lamictal) 50 mg PO BID 02/04/24 02/04/24 History sertraline 100 mg tablet 200 mg PO DAILY 02/04/24 02/04/24 History ibuprofen 800 mg tablet 800 mg PO TIDP PRN Pain #30 tabs 02/07/24 Rx oxycodone-acetaminophen 5 mg-325 1 tab PO Q6H PRN pain #14 tabs 02/07/24 Rx mg tablet New Prescriptions to Start Prescriptions: Ron Bhardwaj oxycodone-acetaminophen Ron Ponce Allergies Allergy/AdvReac Type Severity Reaction Status Date / Time buspirone AdvReac Intermediate Other Verified 02/04/24 01:37 Discharge Plan Disposition Patient Disposition: Home, Self-Care Discharge Order Discharge Orders: Discharge Order (Routine); Ordered 02/07/24 Ordered By: Ron Ponce Follow up Plan Prescriptions/Medication Reconciliation: New oxycodone-acetaminophen 5-325 mg tablet 1 tab PO Q6H PRN (Reason: pain) Qty: 14 0RF Continued hydroxyzine pamoate 100 mg capsule 200 mg PO BID Patient Comments: TAKE 2 CAPSULES BY MOUTH IN THE MORNING AND 2 AT NIGHT cetirizine 10 mg tablet 10 mg PO DAILY Patient Comments: TAKE 1 TABLET BY MOUTH ONCE DAILY valacyclovir 1 gram tablet 1,000 mg PO DAILY Patient Comments: TAKE 1 TABLET BY MOUTH ONCE DAILY EACH DAY metformin 500 mg tablet extended release 24 hr 500 mg PO TID Patient Comments: TAKE 3 TABLETS BY MOUTH ONCE DAILY WITH DINNER. DO NOT CRUSH, CHEW, OR SPLIT. cyclobenzaprine 5 mg tablet 5 mg PO TIDP PRN (Reason: Muscle Spasm) Patient Comments: TAKE 1 TABLET BY MOUTH THREE TIMES DAILY NEEDED FOR MUSCLE SPASM PNV cmb#95-ferrous fumarate-FA [] 28 mg iron- 800 mcg tablet 1 tab PO DAILY Patient Comments: TAKE 1 TABLET BY MOUTH ONCE DAILY levalbuterol tartrate [Xopenex HFA] 45 mcg/actuation HFA aerosol inhaler 2 inh inhalation Q4H PRN (Reason: shortness of breath) Qty: 15 0RF labetalol 200 mg tablet 200 mg PO BID Patient Comments: TAKE 1 TABLET BY MOUTH TWICE DAILY sertraline 100 mg tablet 200 mg PO DAILY Patient Comments: TAKE 2 TABLETS BY MOUTH ONCE DAILY lamotrigine [Lamictal] 25 mg Tablet 50 mg PO BID ibuprofen 800 mg tablet 800 mg PO TIDP PRN (Reason: Pain) Qty: 30 0RF albuterol sulfate 18 GM HFA aerosol inhaler 1 - 2 puffs IH Q4-6H PRN (Reason: Shortness Of Breath Or Wheezing) Discontinued propranolol 60 mg capsule,extended release 24 hr 60 mg PO DAILY Patient Comments: TAKE 1 CAPSULE BY MOUTH ONCE DAILY; DO NOT CRUSH, CHEW, OR SPLIT phentermine 37.5 mg tablet 37.5 mg PO DAILY Patient Comments: TAKE 1 TABLET BY MOUTH ONCE DAILY BEFORE BREAKFAST progesterone micronized 200 mg capsule 200 mg PO HS Patient Comments: TAKE 1 CAPSULE BY MOUTH ONCE DAILY AT NIGHT Problem Reconciliation Problems Reviewed?: Yes Patient Discharge Instructions ACTIVITY: Ambulate as tolerated and No heavy lifting Patient Instructions: Depression, Hemorrhage, DI for , DI for Pre-eclampsia, [facility] Post Discharge Instructions Providers Primary Care Provider: Mitzy Hernandez Admit Provider: Chasidy Curran Attending Provider: Chasidy Curran
[2024-02-07] MEDS: IBUPROFEN 400 MG TABLET 800 MG PO (10:25)
== END 2024-02-07 12:00 | disposition home or self-care (01) | DRG 786 ==
LOC: OBOUT 01:18 → OB 01:18
PROVIDERS: Nurse Practitioner Obstetrics & Gynecology; Admitting Provider Obstetrics & Gynecology; PCP Nurse Practitioner Family; Visit Provider Obstetrics & Gynecology
PROC: (CPT 59514; principal; 2024-02-04 02:00)
DX: O34.211 Maternal care for low transverse scar from previous cesarean delivery (principal); O60.13X0 Preterm labor second trimester with preterm delivery third trimester, not applicable or unspecified; O24.425 Gestational diabetes mellitus in childbirth, controlled by oral hypoglycemic drugs; Z3A.36 36 weeks gestation of pregnancy; Z37.0 Single live birth; O13.4 Gestational [pregnancy-induced] hypertension without significant proteinuria, complicating childbirth; O99.214 Obesity complicating childbirth; O99.344 Other mental disorders complicating childbirth; F41.9 Anxiety disorder, unspecified; O99.345 Other mental disorders complicating the puerperium; F53.0 Postpartum depression; Z79.84 Long term (current) use of oral hypoglycemic drugs
CPT/HCPCS: 59514; 36415; 71045; 80053; 80307; 81001; 82800; 83880; 85007; 85025; 85378; 85651; 86140; 86850; 87086; 93005; 94761; C9290; G0283; J0690; J2405

== ENCOUNTER 2024-10-09 09:22 | Emergency (ER) | payer OTHER, SELFPAY ==
[2024-10-09 09:23] VITALS: BP 136/93; PULSE 77; RESP 16; TEMP 36.4; O2SAT 97; BMI 47.5
[2024-10-09 09:30] VITALS: BP 124/81; PULSE 76; O2SAT 98
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
--- NOTE | 2024-10-09 09:34 | PC.NURSE ---
er at bedside
[2024-10-09 09:50] LABS: Microscopic, Urine URINE MICROSCOPIC (MICROSCOPIC)
[2024-10-09] MEDS: FAMOTIDINE 20MG/2ML VIAL 20 MG IV (09:52)
[2024-10-09] MEDS: BELLADONNA ALKALOIDS 60 ML ML PO (09:52)
[2024-10-09] MEDS: ONDANSETRON 4MG/2ML VIAL 4 MG IV (09:52)
[2024-10-09] MEDS: ACETAMINOPHEN 500MG TAB 1000 MG PO (09:52)
[2024-10-09] MEDS: LACTATED RINGERS 1000ML 1,000 ML 999 ML IV (09:53)
[2024-10-09 09:55] LABS: Basophils # 0.1 K/mm3 (0-0.2); Basophils % 0.7 % (0.1-2.0); Eosinophils % 0.3 % (0.1-12.0); Hematocrit 43.1 % (37.0-47.0); Hemoglobin 15.5 g/dL (12.2-16.2); Lymphocytes # 1.2 K/mm3 (0.7-4.5); Lymphocytes % 12.8 % (10-50); Mean Corpuscular HGB Conc 35.9 g/dL (31.8-35.4); Mean Corpuscular Hemoglobin 29.5 pg (27.0-31.2); Mean Corpuscular Volume 82.2 fl (81-99); Mean Platelet Volume 7.2 fl (7.4-10.4); Monocytes # 0.4 K/mm3 (0.1-1.0); Monocytes % 3.7 % (1.7-9.3); Neutrophils # 7.8 K/mm3 (1.8-7.8); Neutrophils % 82.5 % (37.0-80.0); Platelet Count 277 K/mm3 (142-424); Red Blood Count 5.24 M/mm3 (4.20-5.40); Red Cell Distribution Width 13.5 % (11.5-17.5); White Blood Count 9.4 K/mm3 (4.8-10.8)
[2024-10-09 09:58] LABS: Appearance,Urine CLEAR (Clear); Bilirubin,Urine Negative (Negative); Blood, Urine Negative (Negative); Color,Urine YELLOW (Yellow); Glucose,Urine (UA) Negative (Negative); Ketones,Urine Negative (Negative); Leukocyte Esterase,Urine Negative (Negative); Nitrate,Urine Negative (Negative); Protein,Urine TRACE (Negative); Specific Gravity, Urine >= 1.030 (1.005-1.030); Urobilinogen,Urine 0.2 EU/dl (0.2)
[2024-10-09 10:00] LABS: Lactate Venous 2.4 mmol/L (0.4-2.0)
[2024-10-09 10:04] LABS: HCG Qualitative, Serum Negative (Negative)
[2024-10-09 10:07] LABS: Albumin Level 4.6 g/dl (3.5-5.0); Chloride 107 mmol/L (98-107); Potassium 4.4 mmoL/L (3.5-5.1); Sodium 136 mmol/L (136-145)
[2024-10-09 10:10] LABS: Alanine Aminotransferase 39 U/L (12-78); Albumin/Globulin Ratio 1.4 (1.1-1.8); Alkaline Phosphatase 42 U/L (38-126); Anion Gap 13.4 mEq/L (5-15); Aspartate Amino Transferase 38 U/L (14-36); Bilirubin,Total 0.7 mg/dl (0.2-1.3); Blood Urea Nitrogen 17 mg/dl (7-17); Calcium 9.3 mg/dl (8.4-10.2); Carbon Dioxide 20 mmol/L (22.0-30.0); Creatinine Clearance Estimated 106 mL/min (50-200); Estimated Glomerular Filt Rate 98 ml/min (>60); GFR (African American) 119 ML/MIN (>60); Globulin 3.2 g/dL (1.3-3.2); Glucose 144 mg/dl (74-100); Lipase 73 U/L (23-300); Magnesium 2.1 mg/dl (1.6-2.3); Total Protein,Serum 7.8 g/dl (6.3-8.2)
[2024-10-09 10:20] LABS: HIV (1&2) Antibody Rapid NONREACTIVE (NONREACTIVE)
--- NOTE | 2024-10-09 10:30 | PC.NURSE ---
pt states that she feels better and does not want the CT scan after her GI cocktail
[2024-10-09 10:33] LABS: Bacteria,Urine Trace /lpf
[2024-10-09 10:38] VITALS: BP 124/81; PULSE 76; RESP 14; TEMP 36.4; O2SAT 98
[2024-10-09 14:00] LABS: Reflex Lactic Add Lactic Reflex
[2024-10-10 08:08] LABS: HCV Ab Non Reactive (Non Reactive)
[2024-10-10 18:06] LABS: Lithium (Eskalith(R)) <0.1 mmol/L (0.5-1.2)
== END 2024-10-09 10:41 | disposition home or self-care (01) ==
PROVIDERS: Emergency Provider Emergency Medicine; PCP Nurse Practitioner Family
DX: K29.70 Gastritis, unspecified, without bleeding (principal); R10.13 Epigastric pain
CPT/HCPCS: 80053; 80178; 81001; 83605; 83690; 83735; 84703; 85025; 86803; 87389; 96361; 96374; 96375; 99283; J2405; J7120; S0028

== ENCOUNTER 2024-11-14 15:21 | Outpatient (CLI) | payer OTHER, SELFPAY ==
[2024-11-14 16:22] LABS: Basophils % 0.2 % (0.1-2.0); Hematocrit 41.9 % (37.0-47.0); Hemoglobin 14.6 g/dL (12.2-16.2); Lymphocytes # 2.3 K/mm3 (0.7-4.5); Lymphocytes % 24.4 % (10-50); Mean Corpuscular HGB Conc 34.8 g/dL (31.8-35.4); Mean Corpuscular Hemoglobin 28.9 pg (27.0-31.2); Mean Corpuscular Volume 82.8 fl (81-99); Mean Platelet Volume 9.7 fl (7.4-10.4); Monocytes # 0.6 K/mm3 (0.1-1.0); Monocytes % 6.3 % (1.7-9.3); Neutrophils # 6.6 K/mm3 (1.8-7.8); Neutrophils % 68.4 % (37.0-80.0); Platelet Count 257 K/mm3 (142-424); Red Blood Count 5.06 M/mm3 (4.20-5.40); Red Cell Distribution Width 12.2 % (11.5-17.5); White Blood Count 9.6 K/mm3 (4.8-10.8)
[2024-11-14 16:45] LABS: Alanine Aminotransferase 38 U/L (12-78); Albumin Level 4.5 g/dl (3.5-5.0); Albumin/Globulin Ratio 1.6 (1.1-1.8); Alkaline Phosphatase 42 U/L (38-126); Anion Gap 13.5 mEq/L (5-15); Aspartate Amino Transferase 36 U/L (14-36); Bilirubin,Total 0.4 mg/dl (0.2-1.3); Blood Urea Nitrogen 12 mg/dl (7-17); Calcium 9.4 mg/dl (8.4-10.2); Carbon Dioxide 21 mmol/L (22.0-30.0); Chloride 106 mmol/L (98-107); Chol/HDL Ratio 8.9 (1-3.5); Cholesterol 239 mg/dl (140-200); Estimated Glomerular Filt Rate 84 ml/min (>60); GFR (African American) 102 ML/MIN (>60); Globulin 2.9 g/dL (1.3-3.2); Glucose 98 mg/dl (74-100); HDL Cholesterol 27 mg/dl (40-60); Sodium 136 mmol/L (136-145); Total Protein,Serum 7.4 g/dl (6.3-8.2)
[2024-11-14 16:55] LABS: Triglycerides 442 mg/dl (30-150)
[2024-11-14 16:56] LABS: Direct LDL Cholesterol 149.58 mg/dL (100-129)
[2024-11-14 17:11] LABS: Potassium 4.5 mmoL/L (3.5-5.1)
[2024-11-14 17:23] LABS: Hemoglobin A1C 5.1 % (4.0-6.0)
[2024-11-15 00:17] LABS: Thyroid Stimulating Hormone 1.56 uIU/mL (0.465-4.68)
[2024-11-15 07:13] LABS: Prolactin 10.9 ng/mL (4.8-33.4)
[2024-11-15 08:14] LABS: Lithium (Eskalith(R)) <0.1 mmol/L (0.5-1.2)
[2024-11-16 18:08] LABS: Lamotrigine (Lamictal) 2.7 ug/mL (2.0-20.0)
== END 2024-11-14 23:59 | disposition home or self-care (01) ==
LOC: LAB 15:23
PROVIDERS: PCP Nurse Practitioner Family; Visit Provider Registered Nurse Emergency
DX: F43.12 Post-traumatic stress disorder, chronic (principal); F41.1 Generalized anxiety disorder; F31.32 Bipolar disorder, current episode depressed, moderate
CPT/HCPCS: 36415; 80053; 80061; 80168; 80178; 83036; 84146; 84443; 85025

== ENCOUNTER 2024-12-13 20:35 | Observation (INO) | payer OTHER, SELFPAY ==
[2024-12-13 20:35] VITALS: BP 154/98; PULSE 94; RESP 18; TEMP 36.9; O2SAT 97; BMI 51.0
[2024-12-13 21:00] VITALS: BP 136/84; PULSE 86; RESP 16; O2SAT 97
--- NOTE | 2024-12-13 21:02 | PC.NURSE ---
provider at bedside.
[2024-12-13] MEDS: ALUMINUM/MAGNESIUM/SIMETHICONE 30ML UDC 30 ML PO (21:21)
[2024-12-13] MEDS: BELLADONNA ALKALOIDS 60 ML ML PO (21:21)
--- NOTE | 2024-12-13 21:30 | ED_ITS ---
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 judgement, these images were adequate and did not necessitate further imaging. Critical Care <Emerson Branham MD - Last Filed: 12/13/24 23:03> Critical Care Time Critical Care Time: No
[2024-12-13] MEDS: SODIUM CHLORIDE 0.9% 10ML VIAL 10 ML IV (22:05)
[2024-12-13] MEDS: LIDOCAINE 2% VISCOUS SOL 15ML UDC 15 ML PO (22:05)
[2024-12-13] MEDS: PANTOPRAZOLE 40MG VIAL 40 MG IV (22:05)
[2024-12-13 22:10] LABS: Basophils % 0.2 % (0.1-2.0); Eosinophils % 0.2 % (0.1-12.0); Hematocrit 38.7 % (37.0-47.0); Hemoglobin 13.5 g/dL (12.2-16.2); Lymphocytes # 2.5 K/mm3 (0.7-4.5); Lymphocytes % 38.8 % (10-50); Mean Corpuscular HGB Conc 34.9 g/dL (31.8-35.4); Mean Corpuscular Hemoglobin 28.7 pg (27.0-31.2); Mean Corpuscular Volume 82.3 fl (81-99); Mean Platelet Volume 9.5 fl (7.4-10.4); Monocytes # 0.5 K/mm3 (0.1-1.0); Monocytes % 7.6 % (1.7-9.3); Neutrophils # 3.3 K/mm3 (1.8-7.8); Neutrophils % 51.6 % (37.0-80.0); Platelet Count 200 K/mm3 (142-424); Red Cell Distribution Width 12.3 % (11.5-17.5); White Blood Count 6.5 K/mm3 (4.8-10.8)
--- NOTE | 2024-12-13 22:14 | PC.NURSE ---
Pt AOx4, nad noted, rr even and non labored, skin pwd, US machine at bedside awaiting US of gallbladder
[2024-12-13 22:17] LABS: Albumin Level 4.4 g/dl (3.5-5.0); Chloride 105 mmol/L (98-107)
[2024-12-13 22:18] LABS: Potassium 4.4 mmoL/L (3.5-5.1); Sodium 137 mmol/L (136-145)
[2024-12-13 22:20] LABS: Alanine Aminotransferase 51 U/L (12-78); Albumin/Globulin Ratio 1.5 (1.1-1.8); Alkaline Phosphatase 30 U/L (38-126); Anion Gap 11.4 mEq/L (5-15); Aspartate Amino Transferase 52 U/L (14-36); Bilirubin,Total 0.4 mg/dl (0.2-1.3); Blood Urea Nitrogen 14 mg/dl (7-17); Carbon Dioxide 25 mmol/L (22.0-30.0); Creatinine Clearance Estimated 106 mL/min (50-200); Estimated Glomerular Filt Rate 98 ml/min (>60); GFR (African American) 119 ML/MIN (>60); Lipase 145 U/L (23-300); Total Protein,Serum 7.4 g/dl (6.3-8.2)
[2024-12-13 22:21] LABS: Calcium 9.2 mg/dl (8.4-10.2); Glucose 116 mg/dl (74-100)
--- NOTE | 2024-12-13 22:23 | CT_ITS ---
PROCEDURE INFORMATION: Exam: CT Abdomen And Pelvis With Contrast Exam date and time: 12/13/2024 10:49 PM Age: 29 years old Clinical indication: Abdominal pain; Epigastric; Additional info: Severe epigastric pain, rule out eroding ulcer TECHNIQUE: Imaging protocol: Computed tomography of the abdomen and pelvis with contrast. Radiation optimization: All CT scans at this facility use at least one of these dose optimization techniques: automated exposure control; mA and/or kV adjustment per patient size (includes targeted exams where dose is matched to clinical indication); or iterative reconstruction. Contrast material: ISOVUE; Contrast volume: 75 ml; Contrast route: IV; COMPARISON: ABDPELW CT abdomen pelvis w con 02/18/2019 9:08 AM FINDINGS: Liver: Normal. No mass. Gallbladder and biliary ducts: Normal. No calcified stones. No ductal dilation. Pancreas: Normal. No ductal dilation. Spleen: Normal. No splenomegaly. Adrenal glands: Normal. No mass. Kidneys and ureters: Normal. No hydronephrosis. Stomach and bowel: Rare diverticuli colon. No obstruction. No mucosal thickening. Appendix: No evidence of appendicitis. Intraperitoneal space: Unremarkable. No free air. No significant fluid collection. Vasculature: Unremarkable. No abdominal aortic aneurysm. Lymph nodes: Unremarkable. No enlarged lymph nodes. Urinary bladder: Unremarkable as visualized. Reproductive: Unremarkable as visualized. IUD in good position. Bones/joints: Unremarkable. No acute fracture. Soft tissues: Unremarkable. IMPRESSION: No acute findings.
[2024-12-13 22:29] LABS: Lactic Acid 1.4 mmol/L (0.7-2.1)
[2024-12-13] MEDS: HYDROMORPHONE 2MG/ML SYRINGE 0.5 MG IV ×2 (22:32→23:26)
[2024-12-13] MEDS: ACETAMINOPHEN 1,000MG/100ML VIAL 1000 MG IV (22:32)
[2024-12-13 22:38] LABS: HCG,Quantitative < 2 mIU/ml (0-5.42)
[2024-12-13] MEDS: IOPAMIDOL-370 (76%);100ML BOTTLE 75 ML IV (22:56)
[2024-12-13] MEDS: SODIUM CHLORIDE 0.9% 10ML SYR (RAD ONLY) 10 ML IV (22:56)
--- NOTE | 2024-12-13 23:22 | PC.NURSE ---
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
[2024-12-13 23:34] VITALS: BP 141/94; PULSE 90; RESP 16; TEMP 36.7; O2SAT 96
--- NOTE | 2024-12-13 23:34 | PC.NURSE ---
Hospitalist at bedside
--- NOTE | 2024-12-13 23:46 | PC.NURSE ---
Patient arrived to floor via wheelchair from ED at 23:43.
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
[2024-12-13 23:53] VITALS: BP 141/94; PULSE 88; RESP 19; TEMP 37.2; O2SAT 97; BMI 51.1
[2024-12-14] VITALS (8 sets, daily range): BP systolic 94–156; BP diastolic 43–107; PULSE 55–88; RESP 15–19; TEMP 36.2–36.9; O2SAT 92–99; BMI 51.2
[2024-12-14] MEDS: 0.9 % SODIUM CHLORIDE 1000ML 1,000 ML 75 ML IV (00:08)
[2024-12-14] MEDS: ONDANSETRON 4MG/2ML VIAL 4 MG IV ×2 (00:08→09:37)
[2024-12-14] MEDS: HYDROCODONE/APAP 5/325 MG TABLET 1 TAB PO (01:47)
[2024-12-14] MEDS: ZOLPIDEM TARTRATE 5 MG TABLET PO (01:49)
[2024-12-14] MEDS: ALUMINUM/MAGNESIUM/SIMETHICONE 30ML UDC 30 ML PO (01:50)
[2024-12-14] MEDS: HYDROMORPHONE 2MG/ML SYRINGE 1 MG IV (03:14)
[2024-12-14] MEDS: MORPHINE 4MG/ML SYRINGE 4 MG IV (03:51)
[2024-12-14] MEDS: SUCRALFATE 1GM TABLET 1 GM PO ×2 (05:45→12:20)
[2024-12-14 06:25] LABS: Basophils % 0.3 % (0.1-2.0); Eosinophils % 0.3 % (0.1-12.0); Hematocrit 38.4 % (37.0-47.0); Hemoglobin 13.2 g/dL (12.2-16.2); Lymphocytes # 2.5 K/mm3 (0.7-4.5); Lymphocytes % 37.8 % (10-50); Mean Corpuscular HGB Conc 34.4 g/dL (31.8-35.4); Mean Corpuscular Hemoglobin 28.3 pg (27.0-31.2); Mean Corpuscular Volume 82.4 fl (81-99); Mean Platelet Volume 9.4 fl (7.4-10.4); Monocytes # 0.5 K/mm3 (0.1-1.0); Monocytes % 7.4 % (1.7-9.3); Neutrophils # 3.5 K/mm3 (1.8-7.8); Platelet Count 178 K/mm3 (142-424); Red Blood Count 4.66 M/mm3 (4.20-5.40); Red Cell Distribution Width 12.4 % (11.5-17.5); White Blood Count 6.6 K/mm3 (4.8-10.8)
[2024-12-14 06:39] LABS: Chloride 104 mmol/L (98-107); Potassium 4.2 mmoL/L (3.5-5.1); Sodium 137 mmol/L (136-145)
[2024-12-14 06:42] LABS: Anion Gap 12.2 mEq/L (5-15); Blood Urea Nitrogen 15 mg/dl (7-17); Calcium 8.3 mg/dl (8.4-10.2); Carbon Dioxide 25 mmol/L (22.0-30.0); Creatinine Clearance Estimated 101 mL/min (50-200); Estimated Glomerular Filt Rate 98 ml/min (>60); GFR (African American) 119 ML/MIN (>60); Glucose 98 mg/dl (74-100)
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
[2024-12-14] MEDS: ENOXAPARIN 40MG/0.4ML SYRINGE 40 MG SUBCUT (09:37)
[2024-12-14] MEDS: FAMOTIDINE 20MG TABLET 40 MG PO (09:38)
[2024-12-14] MEDS: PANTOPRAZOLE 40MG TABLET 40 MG PO (10:00)
--- NOTE | 2024-12-14 10:22 | HMH.PHAINT1 ---
Pharmacy Intervention Comments: home medication list verified using list from outpatient pharmacy and pt interview
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
[2024-12-14] MEDS: PROCHLORPERAZINE 10MG/2ML VIAL 5 MG IV (10:42)
--- NOTE | 2024-12-14 10:54 | HMH.PROCNOTE ---
[facility] Procedure Note Date: 12/14/24 Time: 11:01 Procedure Note:: Upper Endoscopy Procedure Report: Esophagogastroduodenoscopy with cold biopsies Endoscopost: Fausto Hobbs II, MD Referring Physician: ARUN Pa, [address] [facility], [place] [address] Date of Procedure: December 14, 2024 Equipment: Olympus GIF 190 standard upper endoscope Sedation: MAC sedation Indications: Ms. Bowman is a 29-year-old female who is here for hospital admission after having severe epigastric abdominal pain. She has had this for months but it became more intense. The patient rated the pain as 10 out of 10. She has had nausea and bloating and marked belching with sulfur smelling belching. She does report chronic diarrhea for months with bowel frequency, bowel urgency and incomplete defecation with excessive wiping. She does note some mucus with her bowel movements but no blood. The patient reports nausea and early satiety. She has no heartburn or dysphagia. She reports no melena or hematochezia. Her CT scan of the abdomen and pelvis in the emergency department was essentially normal. The liver, biliary system and gallbladder were normal. There is a normal-appearing pancreas. Labs showed normal white blood cell count of 6.6, hemoglobin 13.2 and hematocrit 38.4. Her chemistries were nearly normal with ALT 31, alkaline phosphatase 38 and AST 52. Her lipase was 145. She was to be scheduled for EGD in [place] with Dr. Juan Manuel Vigil. The patient does use cannabis regularly. Procedure: Prior to the procedure, a history and physical exam was performed, and patient's medications and allergies were reviewed. The risks, benefits and alternatives of the sedation and procedure were discussed with the patient. All questions were answered and informed consent was obtained. The patient was brought to the procedure room. Patient identification and proposed procedure were verified by the physician and the nurse. The patient was placed in a left lateral decubitus position and the scope was passed under direct vision. Throughout the procedure, the patient's blood pressure, pulse, and oxygen saturations were monitored continuously. The upper GI endoscopy was accomplished without difficulty. The patient tolerated the procedure well. Findings: The scope was passed directly into the upper esophagus and advanced to the third portion of the duodenum. The post bulbar duodenum, ampulla and duodenal bulb were normal with normal mucosa and conniventes. The scope was withdrawn through a normal duodenal bulb and pylorus into the stomach. There was very mild linear reactive gastropathy of the antrum. The body and fundus of the stomach were normal. Upon retroflexion there was no hiatal hernia. Cold biopsies were taken from the antrum. The scope was then withdrawn into the esophagus. There was no evidence of reflux esophagitis or Alicea's. There were tertiary contractions and evidence of mild esophageal dysmotility. The remainder of the esophageal mucosa was normal. Impression: 1. Mild linear reactive gastropathy of antrum Plan: Certainly, her symptoms may be characteristic of cannabinoid hyperemesis syndrome and I will discuss this with the patient and family. I do feel that most of her dyspeptic symptoms are related to and driven by lower intestinal gas pressure gradients/high gas pressure buildup resulting in backflow of bile and peptic fluid from the duodenum into the stomach (duodenal reflux). This gas production (carbon dioxide, hydrogen, methane, etc.) from the lower intestinal tract is the byproduct of colonic bacterial fermentation. This colonic fermentation occurs when there is more carbohydrate (dietary starches, sugars and high residue plant fiber) substrate that does not get digested (in the middle or small intestine) or occurs when there is colonic fecal buildup and colonic bacterial overgrowth. This indeed leads to bloating and the gas pressure buildup with gas pressure gradients that do drive backflow and dyspepsia.
[2024-12-14] MEDS: RIFAXIMIN 550MG TABLET 550 MG PO (12:58)
--- NOTE | 2024-12-14 15:30 | P.DS_ITS ---
General Admission date:: 12/13/24 HPI HPI HPI: Ms. Bowman is a 29-year-old female who is here for hospital admission after having severe epigastric abdominal pain. She has had this for months but it became more intense. The patient rated the pain as 10 out of 10. She has had nausea and bloating and marked belching with sulfur smelling gas. She does report chronic diarrhea for months with bowel frequency, bowel urgency and incomplete defecation with excessive wiping. She does note some mucus with her bowel movements but no blood. The patient reports nausea and early satiety. She has no heartburn or dysphagia. She reports no melena or hematochezia. Her CT scan of the abdomen and pelvis in the emergency department was essentially normal. The liver, biliary system and gallbladder were normal. There is a normal-appearing pancreas. Labs showed normal white blood cell count of 6.6, hemoglobin 13.2 and hematocrit 38.4. Her chemistries were nearly normal with ALT 31, alkaline phosphatase 38 and AST 52. Her lipase was 145. She was to be scheduled for EGD in [place] with Dr. Juan Manuel Vigil Hospital Course Hospital Course Hospital Course: Neli Bowman is a 29-year-old female who presented with intractable epigastric abdominal pain, nausea/vomiting. #Epigastric abdominal pain ? Has had episodes like this in the past that have self resolved, but this 1 has apparently been the worst. ? Symptoms resolved completely after Dilaudid in the ED. ? CBC, CMP, lipase, quantitative-hCG were unremarkable. CT abdomen/pelvis did not show acute findings. ? GI consulted, s/p EGD 12/14/2024 which showed mild linear reactive gastropathy of the antrum. They believe patient's constipation is contributing to her symptoms. They also recommended amitriptyline, however patient is already on desvenlafaxine so we will avoid this at this time to avoid SSRI syndrome. ? I do believe that patient's complex psychiatric history is also contributing to abdominal pain, and likely has a component of irritable bowel syndrome. ? Discharged with Protonix 40 mg daily, dicyclomine as needed. She will also pi ck up FiberCon recommended by GI for stool impaction. Total time spent on discharge: 32 minutes on chart review, counseling, documentation, and direct care with patient. Exam Data for Last 24 hours Vital signs and Labs for Last 24 Hours: Temp Pulse Resp BP Pulse Ox O2 Del Method O2 Flow Rate 97.2 F L 75 18 144/86 H 93 L Room Air 10 12/14/24 11:08 12/14/24 11:38 12/14/24 11:38 12/14/24 11:38 12/14/24 11:38 12/14/24 13:00 12/14/24 10:48 Laboratory Results - last 24 hr 12/13/24 22:02: WBC 6.5, RBC 4.70, Hgb 13.5, Hct 38.7, MCV 82.3, MCH 28.7, MCHC 34.9, RDW 12.3, Plt Count 200, MPV 9.5, Neut % (Auto) 51.6, Lymph % (Auto) 38.8, Guthrie % (Auto) 7.6, Eos % (Auto) 0.2, Baso % (Auto) 0.2, Neut # (Auto) 3.3, Lymph # (Auto) 2.5, Guthrie # (Auto) 0.5, Eos # (Auto) 0.0, Baso # (Auto) 0.0, Sodium 137, Potassium 4.4, Chloride 105, Carbon Dioxide 25, Anion Gap 11.4, BUN 14, Creatinine 0.70, Estimated Creat Clear 106, Estimated GFR 98, Est GFR ( Amer) 119, Glucose 116 H, Calcium 9.2, Total Bilirubin 0.4, AST 52 H, ALT 51, Alkaline Phosphatase 30 L, Total Protein 7.4, Albumin 4.4, Globulin 3.0, Albumin/Globulin Ratio 1.5, Lipase 145, HCG, Quant < 2 12/13/24 22:12: Lactate 1.4 12/14/24 05:35: WBC 6.6, RBC 4.66, Hgb 13.2, Hct 38.4, MCV 82.4, MCH 28.3, MCHC 34.4, RDW 12.4, Plt Count 178, MPV 9.4, Neut % (Auto) 53.0, Lymph % (Auto) 37.8, Guthrie % (Auto) 7.4, Eos % (Auto) 0.3, Baso % (Auto) 0.3, Neut # (Auto) 3.5, Lymph # (Auto) 2.5, Guthrie # (Auto) 0.5, Eos # (Auto) 0.0, Baso # (Auto) 0.0, Sodium 137, Potassium 4.2, Chloride 104, Carbon Dioxide 25, Anion Gap 12.2, BUN 15, Creatinine 0.70, Estimated Creat Clear 101, Estimated GFR 98, Est GFR ( Amer) 119, Glucose 98, Calcium 8.3 L I & O for Last 24 hours: Intake & Output 12/11/24 12/12/24 12/13/24 12/14/24 23:59 23:59 23:59 23:59 Intake Total 200 / 200 Output Total 0 / 0 Balance 200 / 200 Weight 139.162 kg 139.4 kg Constitutional Constitutional: no acute distress and obese *Routine HEENT Exam Head: Present normocephalic Eye: Present EOMI and PERRL ENT: Present mucous membranes moist *Routine Neck Exam Neck: Present supple; Absent lymphadenopathy *Routine Respiratory Exam Respiratory: Present CTA bilaterally *Routine Cardiovascular Exam Cardiovascular: Present RRR *Routine Abdominal Exam Abdominal: Present soft and normoactive bowel sounds; Absent tenderness *Routine Extremities Exam Extremities: Absent cyanosis, clubbing or edema *Routine Skin Exam Skin: Present warm; Absent rash *Routine Neurological Exam Neurological: Present alert and oriented X3 Results Data Completed and Pending Labs on day of discharge: Labs from last 24 hours 12/14/24 12/13/24 12/13/24 05:35 22:12 22:02 WBC 6.6 6.5 RBC 4.66 4.70 Hgb 13.2 13.5 Hct 38.4 38.7 MCV 82.4 82.3 MCH 28.3 28.7 MCHC 34.4 34.9 RDW 12.4 12.3 Plt Count 178 200 MPV 9.4 9.5 Neut % (Auto) 53.0 51.6 Lymph % (Auto) 37.8 38.8 Guthrie % (Auto) 7.4 7.6 Eos % (Auto) 0.3 0.2 Baso % (Auto) 0.3 0.2 Neut # (Auto) 3.5 3.3 Lymph # (Auto) 2.5 2.5 Guthrie # (Auto) 0.5 0.5 Eos # (Auto) 0.0 0.0 Baso # (Auto) 0.0 0.0 Sodium 137 137 Potassium 4.2 4.4 Chloride 104 105 Carbon Dioxide 25 25 Anion Gap 12.2 11.4 BUN 15 14 Creatinine 0.70 0.70 Estimated Creat Clear 101 106 Estimated GFR 98 98 Est GFR ( Amer) 119 119 Glucose 98 116 H Lactate 1.4 Calcium 8.3 L 9.2 Total Bilirubin 0.4 AST 52 H ALT 51 Alkaline Phosphatase 30 L Total Protein 7.4 Albumin 4.4 Globulin 3.0 Albumin/Globulin Ratio 1.5 Lipase 145 HCG, Quant < 2 DS: Diagnosis Discharge Diagnosis (1) Intractable abdominal pain: Status: Acute Code(s): R10.9 - Unspecified abdominal pain (2) Acute epigastric pain: Status: Acute Code(s): R10.13 - Epigastric pain (3) Nausea and vomiting: Status: Acute Code(s): R11.2 - Nausea with vomiting, unspecified Meds Home Medications and Allergies Home Medications ?Medication ?Instructions ?Recorded ?Confirmed ?Type hydroxyzine pamoate 100 mg capsule 100 mg PO BIDP PRN Anxiety 02/25/23 12/14/24 History azelastine 137 mcg (0.1 %) nasal 1 spray intranasal BID 12/14/24 12/14/24 History spray desvenlafaxine succinate 100 mg 200 mg PO DAILY 12/14/24 12/14/24 History tablet,extended release 24 hr fenofibrate nanocrystallized 48 mg 48 mg PO DAILY 12/14/24 12/14/24 History tablet fluticasone propionate 50 1 spray intranasal DAILY 12/14/24 12/14/24 History mcg/actuation nasal spray,suspension lamotrigine 300 mg tablet,extended 300 mg PO DAILY 12/14/24 12/14/24 History release 24 hr loratadine 10 mg tablet 10 mg PO DAILY 12/14/24 12/14/24 History olanzapine 10 mg disintegrating 10 - 20 mg PO DAILYP PRN Anxiety 12/14/24 12/14/24 History tablet omeprazole 40 mg capsule,delayed 40 mg PO DAILY 12/14/24 12/14/24 History release pantoprazole 40 mg tablet,delayed 40 mg PO DAILY #30 tabs 12/14/24 Rx release (Protonix) vit no.133-ferrous 1 tab PO DAILY 12/14/24 12/14/24 History fumarate 28 mg-folic acid 800 mcg tablet () propranolol 20 mg tablet 20 mg PO TIDP PRN Anxiety 12/14/24 12/14/24 History quetiapine 100 mg tablet 100 mg PO HS 12/14/24 12/14/24 History dicyclomine 20 mg tablet 20 mg PO QID PRN abdominal pain 12/15/24 Rx #30 tabs New Prescriptions to Start Prescriptions: dicyclomkarina CrisostomoDominguez pantoprazole [Protonix] ChadwicktamirDominguez Allergies Allergy/AdvReac Type Severity Reaction Status Date / Time buspirone AdvReac Intermediate Other Verified 10/09/24 09:33 Discharge Plan Disposition Patient Disposition: Home, Self-Care Condition: Fair Follow up Plan Follow up with: Mitzy Hernandez [Primary Care Provider] - 12/23/24 1:00 pm Irina Womack APRN [Nurse Practitioner] - 01/18/25 1:00 pm (6 week follow up ) Prescriptions/Medication Reconciliation: New pantoprazole [Protonix] 40 mg tablet,delayed release (DR/EC) 40 mg PO DAILY Qty: 30 0RF dicyclomine 20 mg tablet 20 mg PO QID PRN (Reason: abdominal pain) Qty: 30 0RF Continued hydroxyzine pamoate 100 mg capsule 100 mg PO BIDP PRN (Reason: Anxiety) Patient Comments: TAKE 2 CAPSULES BY MOUTH IN THE MORNING AND 2 AT NIGHT omeprazole 40 mg capsule,delayed release(DR/EC) 40 mg PO DAILY Patient Comments: TAKE 1 CAPSULE BY MOUTH ONCE DAILY DO NOT CRUSH OR CHEW quetiapine 100 mg tablet 100 mg PO HS Patient Comments: TAKE 1 TABLET BY MOUTH AT BEDTIME olanzapine 10 mg tablet,disintegrating 10 - 20 mg PO DAILYP PRN (Reason: Anxiety) Patient Comments: TAKE 1 TO 2 TABLETS BY MOUTH ONCE DAILY NEEDED FOR ANXIETY azelastine 137 mcg (0.1 %) spray,non-aerosol 1 spray INTRANASAL BID Patient Comments: USE 1 SPRAY(S) IN EACH NOSTRIL TWICE DAILY DIRECTED propranolol 20 mg tablet 20 mg PO TIDP PRN (Reason: Anxiety) Patient Comments: TAKE 1 TABLET BY MOUTH THREE TIMES DAILY NEEDED FOR ANXIETY fluticasone propionate 50 mcg/actuation spray,suspension 1 spray INTRANASAL DAILY Patient Comments: USE 1 SPRAY(S) IN EACH NOSTRIL ONCE DAILY BEFORE FIRST USE, PRIME PUMP, AFTER USE, CLEAN TIP AND REPLACE CAP loratadine 10 mg tablet 10 mg PO DAILY Patient Comments: TAKE 1 TABLET BY MOUTH ONCE DAILY fenofibrate nanocrystallized 48 mg tablet 48 mg PO DAILY Patient Comments: TAKE 1 TABLET BY MOUTH ONCE DAILY desvenlafaxine succinate 100 mg tablet extended release 24 hr 200 mg PO DAILY Patient Comments: TAKE 2 TABLETS BY MOUTH ONCE DAILY lamotrigine 300 mg tablet extended release 24hr 300 mg PO DAILY Patient Comments: TAKE 1 TABLET BY MOUTH ONCE DAILY 28-800 mg-mcg tablet 1 tab PO DAILY Patient Comments: TAKE 1 TABLET BY MOUTH ONCE DAILY Problem Reconciliation Problems Reviewed?: Yes Patient Discharge Instructions Additional Instructions: Please cook pickled meat the other medication at your local drugstore. Patient Instructions: Upper GI Endoscopy, DI for Abdominal Pain-Adult Print Language: Ecuadorean Providers Primary Care Provider: Mitzy Hernandez Admit Provider: Dominguez Crisostomo Attending Provider: Dominguez Crisostomo
[2024-12-15 11:10] LABS: Lithium (Eskalith(R)) <0.1 mmol/L (0.5-1.2)
[2024-12-15 14:18] LABS: H. pylori Breath Test Positive (Negative)
--- NOTE | 2024-12-16 11:31 | SW/DCPLANNER ---
Phoned patient x2. Patient did not answer and left messages with my call back number. Quinton Harrington
== END 2024-12-14 16:20 | disposition home or self-care (01) ==
LOC: ER 23:22 → 2ND 23:34
PROVIDERS: Internal Medicine Gastroenterology; Nurse Practitioner Family; Admitting Provider Student in an Organized Health Care Education/Training Program; Emergency Provider Emergency Medicine; PCP Nurse Practitioner Family; Visit Provider Student in an Organized Health Care Education/Training Program
PROC: 0DJ08ZZ Inspection of Upper Intestinal Tract, Via Natural or Artificial Opening Endoscopic (ICD-10-PCS; CPT 43239; principal; 2024-12-14 12:00)
DX: R10.13 Epigastric pain (principal); F41.9 Anxiety disorder, unspecified; E66.9 Obesity, unspecified; Z79.899 Other long term (current) drug therapy; Z87.11 Personal history of peptic ulcer disease; Z68.43 Body mass index [BMI] 50.0-59.9, adult
CPT/HCPCS: 43239; 74177; 80048; 80053; 80178; 83013; 83605; 83690; 84702; 85025; 99285; G0378; J0131; J0780; J1171; J1650; J2270; J2405; J2704; J7030; Q9967

== ENCOUNTER 2024-12-20 13:45 | Emergency (ER) | payer OTHER, SELFPAY ==
[2024-12-20 14:05] VITALS: BP 134/84; PULSE 78; RESP 18; TEMP 36.8; O2SAT 98; BMI 51.0
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
--- NOTE | 2024-12-20 15:00 | PC.NURSE ---
Maurice Arteaga PAC at bedside
--- NOTE | 2024-12-20 15:04 | PC.NURSE ---
pt given sean
[2024-12-20] MEDS: SIMETHICONE 80MG CHEWABLE TABLET 160 MG PO (15:12)
[2024-12-20] MEDS: BELLADONNA ALKALOIDS 60 ML ML PO (15:13)
[2024-12-20] MEDS: ONDANSETRON 4MG/2ML VIAL 4 MG IV (15:13)
[2024-12-20 15:19] LABS: Basophils % 0.3 % (0.1-2.0); Eosinophils % 0.2 % (0.1-12.0); Hematocrit 43.3 % (37.0-47.0); Lymphocytes % 17.9 % (10-50); Mean Corpuscular HGB Conc 34.6 g/dL (31.8-35.4); Mean Corpuscular Hemoglobin 28.8 pg (27.0-31.2); Mean Corpuscular Volume 83.1 fl (81-99); Mean Platelet Volume 9.2 fl (7.4-10.4); Monocytes # 0.7 K/mm3 (0.1-1.0); Monocytes % 6.3 % (1.7-9.3); Neutrophils # 8.1 K/mm3 (1.8-7.8); Neutrophils % 73.2 % (37.0-80.0); Platelet Count 222 K/mm3 (142-424); Red Blood Count 5.21 M/mm3 (4.20-5.40); Red Cell Distribution Width 12.7 % (11.5-17.5); White Blood Count 11.1 K/mm3 (4.8-10.8)
[2024-12-20 15:28] LABS: Albumin Level 4.7 g/dl (3.5-5.0); Chloride 104 mmol/L (98-107); Sodium 137 mmol/L (136-145)
[2024-12-20 15:29] LABS: Potassium 4.6 mmoL/L (3.5-5.1)
[2024-12-20 15:31] LABS: Alanine Aminotransferase 44 U/L (12-78); Albumin/Globulin Ratio 1.4 (1.1-1.8); Alkaline Phosphatase 35 U/L (38-126); Anion Gap 13.6 mEq/L (5-15); Aspartate Amino Transferase 38 U/L (14-36); Bilirubin,Total 0.5 mg/dl (0.2-1.3); Blood Urea Nitrogen 18 mg/dl (7-17); Calcium 9.2 mg/dl (8.4-10.2); Carbon Dioxide 24 mmol/L (22.0-30.0); Creatinine Clearance Estimated 106 mL/min (50-200); Estimated Glomerular Filt Rate 98 ml/min (>60); GFR (African American) 119 ML/MIN (>60); Globulin 3.3 g/dL (1.3-3.2); Glucose 104 mg/dl (74-100); Lipase 118 U/L (23-300)
[2024-12-20 15:32] LABS: Magnesium 1.8 mg/dl (1.6-2.3)
[2024-12-20 17:00] VITALS: BP 136/80; PULSE 74; RESP 18; TEMP 36.8; O2SAT 99
== END 2024-12-20 17:00 | disposition home or self-care (01) ==
PROVIDERS: Physician Assistant; Emergency Provider Emergency Medicine; PCP Nurse Practitioner Family
DX: F12.288 Cannabis dependence with other cannabis-induced disorder (principal); R10.10 Upper abdominal pain, unspecified
CPT/HCPCS: 80053; 83690; 83735; 85025; 96374; 99283; J2405

== ENCOUNTER 2024-12-22 00:20 | Emergency (ER) | payer OTHER, SELFPAY ==
[2024-12-22 00:28] VITALS: BP 162/97; PULSE 90; O2SAT 97
[2024-12-22 00:30] VITALS: BP 162/97; PULSE 84; RESP 20; TEMP 36.5; O2SAT 97; BMI 51.0
--- NOTE | 2024-12-22 00:39 | ECG_ITS ---
APPROVED REPORT Exam: Resting ECG HR:71 bpm ECG Measurements Heart Rate 71 AXES CA 140 P 68 QRSd 102 QRS 53 QT 399 T 48 QTc 421 Conclusion SINUS RHYTHM NORMAL ECG INTERPRETATION BASED ON A DEFAULT AGE OF 40 YEARS UNCONFIRMED REPORT Electronically signed by : MORENA XAVIER, 12/22/2024 23:55:02
[2024-12-22] MEDS: KETOROLAC 30MG/ML VIAL 30 MG IM (00:45)
[2024-12-22] MEDS: droPERidol 5MG/2ML VIAL 5 MG IM (00:46)
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
[2024-12-22 01:15] VITALS: BP 135/105; PULSE 79; RESP 20; TEMP 36.9; O2SAT 100
[2024-12-22] MEDS: ACETAMINOPHEN 500MG TAB 1000 MG PO (01:16)
== END 2024-12-22 01:16 | disposition left against medical advice (07) ==
PROVIDERS: Emergency Provider Emergency Medicine
DX: F12.288 Cannabis dependence with other cannabis-induced disorder (principal); R10.13 Epigastric pain; R11.2 Nausea with vomiting, unspecified; Z76.5 Malingerer [conscious simulation]
CPT/HCPCS: 93005; 96372; 99283; J1790; J1885

== ENCOUNTER 2025-03-16 15:20 | Outpatient (CLI) | payer OTHER, SELFPAY ==
--- NOTE | 2025-03-16 15:24 | XR_ITS ---
FINAL REPORT TECHNIQUE: Chest PA & Lateral CLINICAL HISTORY: Shortness of breath COMPARISON: 02/06/2024 FINDINGS: 2 views of the chest were performed. The heart size is normal. The mediastinum is within normal limits. There is no acute cardiopulmonary process. There are no pleural effusions. There is no pneumothorax. The bony thorax appears intact. IMPRESSION: No acute cardiopulmonary process. Reviewed, Interpreted and Dictated by Carroll Bragg MD Transcribed by Meghan Vines Authenticated and . [facility]
--- OUTSIDE RECORDS SUMMARY | 2025-03-16 15:24 | XMS_ITS | Continuity of Care Document ---
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 Plan of Treatment Reminders Order Date Submit Date Provider Last Modified By Organization Details Last Modified Time Details Appointments SURGERY 15 2024 09:15A M LORA LOERA MD Not available Not available Not available Weight Check 2024 02:00P M SY AYALA RD Not available Not available Not available Weight Check 2024 02:00P M RADHA STOLL RD, LD Not available Not available Not available Lab None recorded. Referral None recorded. Procedures None recorded. Surgeries None recorded. Imaging electroca rdiogram 2024 0508 025 [facility], [address], [place], [address], 03/09/2025 11:35:22 Medication Orders None recorded. Patient TargetsNo targets recorded. Patient InstructionsNo instructions recorded. Reason for Referral None Reported. Results Created Date Observation Date Name Description Value Unit Range Abnormal Flag Note LastModifiedBy Organization Detail LastModifiedTime 03/09/2003/09/2025 court darnellgr am No observ ation record ed. [facility] [address], [place], [address], 03/09/2025 11:36:21 03/09/2003/0903/09/2025 elect mehran love am No observ ation record ed. [facility] [address], [place], [address], 03/09/2025 11:35:22 Result Notes None recorded. 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, [place], [address] , [place] - [facility] & [place] 14:30:33 Problem Notes None recorded. Procedures Surgical History Date Name Laterality Status Provider Name and Address Organization Details Recorded Time extraction of wisdom tooth completed Iradoreen Spencer [place] - [facility] & [place] 03/07/2025 11:44:28 operation on nasal septum completed Iradoreen LOMAX - [facility] & [place] 03/07/2025 11:44:38 grafting to skin completed Iradoreen LOMAX - [facility] & [place] 03/07/2025 11:44:46 Imaging Results Imaging Date Name Status LastModified by Organization Details LastModified Time 03/09/2025 electrocardiogram completed [facility] [address], [place], [address], 03/09/2025 11:36:21 Procedure Notes None recorded. Medical Equipment None Reported. Allergies Allergen ID Allergen Name Allergen Category Reaction Reaction Severity Criticality Documentation Date Start Date Code Code System Note Provider Name and Address Organization Details Recorded Time 913115 buspirone medicatio n dizziness Not available Not available 02/27/2025 1827 RxNorm Micaela Roach [facility], [facility] & [place] 5 12:30:18 Medications Name Sig Start Date Stop Date Status Note LastModified by Organization Details LastModified Time quetiapine 25 mg tablet TAKE 1 TABLET BY MOUTH AT BEDTIME 03/07 completed Not Available Not Available Not Available cyclobenzap rine 10 mg tablet TAKE 1 TABLET BY MOUTH THREE TIMES DAILY NEEDED FOR MUSCLE SPASM 03/07 completed Not Available Not Available Not Available hydroxyzine pamoate 100 mg capsule TAKE 1 CAPSULE BY MOUTH TWICE DAILY NEEDED FOR ANXIETY active Not Available Not Available No t Available lamotrigine 150 mg tablet TAKE 1 TABLET BY MOUTH ONCE DAILY 03/07 completed Not Available Not Available Not Available terconazole 0.4 % vaginal cream INSERT 1 APPLICATO RFUL VAGINALLY ONCE DAILY AT NIGHT FOR 7 DAYS 03/07 completed Not Available Not Available Not Available doxycycline hyclate 100 mg capsule TAKE 1 CAPSULE BY MOUTH TWICE DAILY FOR 10 DAYS. TAKE WITH AT LEAST 8 OUNCES (LARGE GLASS) OF WATER, DO NOT LIE DOWN FOR 30 MINUTES AFTER 03/07 completed Not Available Not Available Not Available lamotrigine 200 mg tablet TAKE 1 TABLET BY MOUTH ONCE DAILY 03/07 completed Not Available Not Available Not Available labetalol 200 mg tablet TAKE 1 TABLET BY MOUTH TWICE DAILY 03/07 completed Not Available Not Available Not Available trazodone 50 mg tablet TAKE 1 TABLET BY MOUTH ONCE DAILY 03/07 completed Not Available Not Available Not Available cetirizine 10 mg tablet TAKE 1 TABLET BY MOUTH ONCE DAILY 03/07 completed Not Available Not Available Not Available ibuprofen 800 mg tablet TAKE 1 TABLET BY MOUTH EVERY 8 HOURS NEEDED FOR MODERATE PAIN, MILD PAIN OR HEADACHES 03/07 completed Not Available Not Available Not Available fluconazole 150 mg tablet TAKE 1 TABLET BY MOUTH FOR A ONE TIME DOSE. 03/07 completed Not Available Not Available Not Available prazosin 1 mg capsule TAKE 1 CAPSULE BY MOUTH AT BEDTIME 03/07 completed Not Available Not Available Not Available sucralfate 100 mg/mL oral suspension TAKE 10 ML BY MOUTH THREE TIMES DAILY NEEDED FOR HEARTBURN 03/07 completed Not Available Not Available Not Available propranolol ER 60 mg capsule,24 hr,extended release TAKE 1 CAPSULE BY MOUTH ONCE DAILY NEEDED FOR ANXIETY active Not Available Not Available No t Available sertraline 100 mg tablet TAKE 1 TABLET BY MOUTH DAILY FOR 1 WEEK, THEN 1/2 TABLET BY MOUTH EVERY OTHER DAY FOR 1 WEEK, THEN STOP 03/07 completed Not Available Not Available Not Available lithium carbonate 150 mg capsule TAKE 1 CAPSULE BY MOUTH AT BEDTIME 03/07 completed Not Available Not Available Not Available metronidazo le 500 mg tablet TAKE 1 TABLET BY MOUTH TWICE DAILY FOR 7 DAYS 03/07 completed Not Available Not Available Not Available phentermine 37.5 mg tablet TAKE 1 TABLET BY MOUTH ONCE DAILY BEFORE BREAKFAST 03/07 completed Not Available Not Available Not Available sulfamethox azole 800 mg-trimetho prim 160 mg tablet TAKE 1 TABLET BY MOUTH TWICE DAILY FOR 7 DAYS 03/07 completed Not Available Not Available Not Available omeprazole 40 mg capsule,del ayed release TAKE 1 CAPSULE BY MOUTH ONCE DAILY DO NOT CRUSH OR CHEW 03/07 completed Not Available Not Available Not Available doxycycline monohydrate 100 mg tablet TAKE 1 TABLET BY MOUTH TWICE DAILY FOR 7 DAYS 03/07 completed Not Available Not Available Not Available quetiapine 100 mg tablet TAKE 1 TABLET BY MOUTH AT BEDTIME active Not Available Not Available No t Available lithium carbonate ER 450 mg tablet,exte nded release TAKE 1 TABLET BY MOUTH AT BEDTIME active Not Available Not Available No t Available lamotrigine 25 mg tablet TAKE 1 TABLET BY MOUTH ONCE DAILY FOR 2 WEEKS, THEN INCREASE TO 2 TABLETS BY MOUTH ONCE DAILY FOR 2 WEEKS 03/07 completed Not Available Not Available Not Available oxycodone-a cetaminophe n 5 mg-325 mg tablet TAKE 1 TABLET BY MOUTH EVERY 6 HOURS NEEDED FOR PAIN 03/07 completed Not Available Not Available Not Available propranolol 10 mg tablet TAKE 1 TABLET BY MOUTH THREE TIMES DAILY active Not Available Not Available No t Available famotidine 20 mg tablet TAKE 1 TABLET BY MOUTH ONCE DAILY 03/07 completed Not Available Not Available Not Available dicyclomine 20 mg tablet TAKE 1 TABLET BY MOUTH 4 TIMES DAILY NEEDED FOR ABDOMINAL PAIN 03/07 completed Not Available Not Available Not Available amitriptyli ne 10 mg tablet TAKE 1 TABLET BY MOUTH NIGHTLY FOR 5-7 DAYS, AND THEN INCREASE TO 1 TABLET TWICE DAILY THEREAFTE R 03/07 completed Not Available Not Available Not Available lithium carbonate 300 mg capsule TAKE 1 CAPSULE BY MOUTH ONCE DAILY 03/07 completed Not Available Not Available Not Available pantoprazol e 40 mg tablet,glory yed release TAKE 1 TABLET BY MOUTH ONCE DAILY 03/07 completed Not Available Not Available Not Available promethazin e 25 mg tablet TAKE 1 TABLET BY MOUTH EVERY 6 HOURS NEEDED FOR NAUSEA FOR VOMITING 03/07 completed Not Available Not Available Not Available guanfacine 1 mg tablet TAKE 1 TABLET BY MOUTH TWICE DAILY 03/07 completed Not Available Not Available Not Available olanzapine 10 mg disintegrat ing tablet DISSOLVE 1 TO 2 TABLETS IN MOUTH ONCE DAILY NEEDED FOR ANXIETY active Not Available Not Available No t Available mupirocin 2 % topical ointment APPLY SMALL AMOUNT OF OINTMENT TOPICALLY TO NARES TWICE DAILY 03/07 completed Not Available Not Available Not Available furosemide 20 mg tablet TAKE 1 TABLET BY MOUTH ONCE DAILY 03/07 completed Not Available Not Available Not Available nystatin 100,000 unit/gram topical powder APPLY POWDER TOPICALLY THREE TIMES DAILY 03/07 completed Not Available Not Available Not Available azelastine 137 mcg (0.1 %) nasal spray USE 1 SPRAY(S) IN EACH NOSTRIL TWICE DAILY DIRECTED 03/07 completed Not Available Not Available Not Available propranolol 20 mg tablet TAKE 1 TABLET BY MOUTH THREE TIMES DAILY NEEDED FOR ANXIETY 03/07 completed Not Available Not Available Not Available ondansetron 4 mg disintegrat ing tablet DISSOLVE 1 TABLET IN MOUTH 4 TIMES DAILY NEEDED FOR NAUSEA AND VOMITING 03/07 completed Not Available Not Available Not Available fluticasone propionate 50 mcg/actuati on nasal spray,suspe nsion USE 1 SPRAY(S) IN EACH NOSTRIL ONCE DAILY BEFORE FIRST USE, PRIME PUMP, AFTER USE, CLEAN TIP AND REPLACE CAP 03/07 completed Not Available Not Available Not Available lamotrigine 100 mg tablet TAKE 1 TABLET BY MOUTH ONCE DAILY 03/07 completed Not Available Not Available Not Available loratadine 10 mg tablet TAKE 1 TABLET BY MOUTH ONCE DAILY active Not Available Not Available No t Available olanzapine 5 mg disintegrat ing tablet DISSOLVE 1 TO 2 TABLETS IN MOUTH ONCE DAILY NEEDED FOR ANXIETY 03/07 completed Not Available Not Available Not Available nitrofurant oin monohydrate /macrocryst als 100 mg capsule TAKE 1 CAPSULE BY MOUTH TWICE DAILY WITH FOOD FOR 7 DAYS 03/07 completed Not Available Not Available Not Available quetiapine 50 mg tablet TAKE 1 TABLET BY MOUTH AT BEDTIME 03/07 completed Not Available Not Available Not Available fenofibrate nanocrystal lized 48 mg tablet TAKE 1 TABLET BY MOUTH ONCE DAILY active Not Available Not Available No t Available desvenlafax ine succinate ER 50 mg tablet,exte nded release 24 hr TAKE 1 TABLET BY MOUTH ONCE DAILY 03/07 completed Not Available Not Available Not Available desvenlafax ine succinate ER 100 mg tablet,exte nded release 24 hr TAKE 2 TABLETS BY MOUTH ONCE DAILY active Not Available Not Available No t Available lamotrigine ER 300 mg tablet,exte nded release 24 hr TAKE 1 TABLET BY MOUTH ONCE DAILY active Not Available Not Available No t Available vilazodone 10 mg tablet TAKE 1 TABLET BY MOUTH ONCE DAILY 03/07 completed Not Available Not Available Not Available lamotrigine ER 250 mg tablet,exte nded release 24 hr TAKE 1 TABLET BY MOUTH ONCE DAILY 03/07 completed Not Available Not Available Not Available 28 mg iron-800 mcg tablet TAKE 1 TABLET BY MOUTH ONCE DAILY active Not Available Not Available No t Available 28 mg-800 mcg tablet TAKE 1 TABLET BY MOUTH ONCE DAILY 03/07 completed Not Available Not Available Not Available Vitals Date Recorded Body height Body mass index (BMI) Body weight Oxygen saturation Oxygen saturation in Arterial blood by Pulse oximetry Heart rate Systolic blood pressure Diastolic blood pressure Provider Name and Address Organization Details Last Updated DateTime 165.1 cm 51.6 kg/m2 533369. 63 g 99 % 99 % 78 /min 115 mm[Hg] 75 mm[Hg] Celena Perez [facility] & [place] 10:55:34 Social History Question Answer Notes LastModified by Organizat ion Details LastModified Time Tobacco Smoking Status Never Smoker Micaela stack, MONIE [facility] & [place] 02/27/2025 12:23:34 What Is Your Level Of Caffeine Consumption? None Information not available 02/27/2025 Sex: Unknown Functional Status Question Answer Note LastModified by Organizat ion Details LastModified Time What is your level of alcohol consumption? Occasional Information not available 02/27/2025 Mental Status None recorded. Family History Relationship Description Onset Age of this Age Resolved Age Notes LastModified by Organization Details LastModified Time Brother Bipolar disorder [email or web address] Not available 04/2025 11:31:10 Brother Schizophreni a [email or web address] Not available 04/2025 11:31:10 Father Chronic mental disorder Not available 04/2025 11:31:10 Maternal Grandfather Depressive disorder [email or web address] Not available 04/2025 11:31:10 Maternal Grandfather Suicide [email or web address] Not available 11:31:10 Maternal Grandmother Bipolar disorder [email or web address] Not available 04/2025 11:31:10 Maternal Grandmother Heart disease Not available 02/27 12:27:37 Mother Asthma [email or web address] Not availabl e 03/07/2025 11:31:10 Mother Depressive disorder [email or web address] Not available 04/2025 11:31:10 Mother Heart disease Not available 02/27 12:28:18 Mother Obesity Not availabl e 02/27/2025 12:28:29 Maternal Uncle Bipolar disorder [email or web address] Not available 04/2025 11:31:10 Sister Bipolar disorder [email or web address] Not available 04/2025 11:31:10 Sister Hyperlipidem ia [email or web address] Not available 04/2025 11:31:10 Medical History Condition Response Anxiety Disorder Y Hypertension Y Depression Y Gynecological HistoryNo gynecological history recorded. Obstetrics History GPAL:G 0 P 0 0 0 0 Past Encounters Encounter ID Performer Location Encounter Start Date Encounter Closed Date Diagnosis/Indication Diagnosis SNOMED-CT Code Diagnosis ICD10 Code Diagnosis Note [id number] CECILIA LANZA NP [facility] n Bariatric s and Adv Surg [address] [facility] [address] [place] [address] 03/07/2025 11:17:54 03/07/2025 14:42:56 Disorder of function of stomach 182436080 K31.89 Pre-surger y evaluation 495310813 Z01.818 Obesity screening 322568 005 Z13.89 Severe obesity 698728027 1 9104 E66.813 Z68.43 The patient will be scheduled for the following. Initial intake lab work, cardiac clearance, and EGD. All risks complicati ons and alternativ es of the upper endoscopy were discussed with the patient and agreed upon. These include but are not limited to, over sedation, bleeding, perforatio n. Patient will be educated by the surgical weight loss team regarding if any medical managed weight loss will be required and they will follow this according to their recommenda tions. patient will follow-up in office after all testing has been completed Anxiety 69457908 F41.[id number] [facility] Bariatric s and Adv Surg [address] [facility] [address] [place] [address] 03/07/2025 15:47:00 03/07/2025 15:51:57 Diet education 01339722 Z71.3 Completed nutrition evaluation and education with patient. Education provided:- Importance of not skipping meals and eating every 2-4 hours.- Meeting protein goals based on recommende d surgery.-B egin reducing the amount of carbonated , caffeinate d, and sugary beverages consumed.- Encouraged getting in 64 oz. of fluids daily-Impo rtance of physical activity to help maintain muscle mass and to have successful weight loss-Impor tance of tracking calories and protein with a smartphone david-Encour aged trying different protein shakes. Handouts provided: Surgical weight loss manual with nutrition education regarding protein, fruits, vegetables , grains, dairy, fats/oil, cooking methods, sample meal plan, and sample mix and match pairings, and exercise. Specific surgical manual provided to patient based on recommende d surgery. [id number] Natalia Lopez MD [facility] [address] [address] [place] [address] 03/09/2025 10:45:53 03/09/2025 11:16:06 Preoperative procedure 896294273 Z01.810 29 year old female Normal EKG. physically active, no limitation s. can proceed with the surgery as low risk patient for moderate risk procedure from the cardiovasc ular standpoint . Hypertriglyceridemia 302 453480 E78.1 on fenofibrat e. follow up lipid panel fasting. Anxiety 19925360 F41.9 On propranolo l and Lamotrigin e. Severe obesity 540302716 1 9104 E66.813 Z68.43 BMI 51.6. sleep apnea study was negative as per the patient. Health Concerns Section Related Observation LastModified by Organization Detai ls LastModified Time None Recorded Concern Status LastModified by Organization Details LastModified Time None Recorded Payers Encounter Date Sequence Insurance Name Policy Number Policy Richards Covered Member ID Richards Member ID Guarantor Name 03/09/2025 1 [employer] [facility] (MEDICAID HMO) Neli Cunha [id number] Neil Bowman Notes Date Note Type Note Provider Name and Address Organization Details Recorded Time 5 text/html 29 year old female with past medical history significant for anxiety on medications, hypertriglyceridemia on fenofibrate, history of heart disease at early age in her mother, and obesity.Patient was sent for preoperative cardiovascular evaluation for weight loss surgery. She has been doing well, physically active, goes on hikes, with no chest pain, shortness of breath. no palpitations, dizziness, falling down or passing out. no orthopnea, PND or leg swelling. no cough, sputum, or hemotpysis. no bleeding.EKG done today results were discussed with the patient. Patient had blood work done at [facility] office today will call for results. EK03/09/25 NOrmal sinus rhythm, normal EKG. Natalia Lopez MD [address] [facility], [place], [address], [facility] [place] & [place] 03/09/2025 11:24:28 OBGyn Episode No OBEpisode recorded.
--- OUTSIDE RECORDS SUMMARY | 2025-03-16 15:24 | XMS_ITS | Continuity of Care Document ---
Author Organization [place] - [place] [facility] Address [address] [place] [address] Care Team Providers Care Block Bolter Mule Operator Name Role Phone RAMY DONALD Primary Care Provider [phone] Assessment No assessment recorded. Plan of Treatment Reminders Order Date Submit Date Provider Last Modified By Organization Details Last Modified Time Details Appointments SURGERY 15 2024 09:15A M LORA PARKER MD Not available Not available Not available Weight Check 2024 02:00P M SY AYALA RD Not available Not available Not available Weight Check 2024 02:00P M RADHA STOLL RD, LD Not available Not available Not available Lab vitamin D, 25-hydrox y, total, serum 2024 025 AUDI [facility], [address], [address], [place], [address], 03/15/2025 16:27:15 vitamin A (retinol) , serum 2024 025 AUDI [facility], [address], [address], [place], [address], 03/15/2025 16:27:15 vitamin E, serum 2024 025 AUDI [facility], [address], [address], [place], [address], 03/15/2025 16:27:12 PTH (parathyr oid hormone), intact, serum or plasma 2024 025 AUDI [facility], [address], [address], [place], [address], 03/15/2025 16:27:18 CBC w/ auto diff 2024 025 AUDI [facility], [address], [address], [place], [address], 03/15/2025 16:27:10 HbA1c (hemoglob in A1c), blood 2024 025 AUDI [facility], [address], [address], [place], [address], 03/15/2025 16:27:13 lipid panel, serum 2024 025 AUDI [facility], [address], [address], [place], [address], 03/15/2025 16:27:12 TSH + free T4, serum 2024 025 AUDI [facility], [address], [address], [place], [address], 03/15/2025 16:27:09 folate, serum 2024 025 AUDI [facility], [address], [address], [place], [address], 03/15/2025 16:27:14 methylmal odell, QN, serum or plasma 2024 025 AUDI [facility], [address], [address], [place], [address], 03/15/2025 16:27:17 thiamine, QN, blood 2024 025 AUDI [facility], [address], [address], [place], [address], 03/15/2025 16:27:16 CMP, serum or plasma 2024 025 AUDI [facility], [address], [address], [place], [address], 03/15/2025 16:27:11 iron + TIBC + ferritin, serum 2024 025 AUDI [facility], [address], [address], [place], [address], 03/15/2025 16:27:09 Referral None recorded. Procedures None recorded. Surgeries esophagog astroduod enoscopy (SURG) 2024 025 [email or web address] Lora Parker MD, [address], [address], [place], [address], 03/08/2025 12:35:10 Imaging XR, chest, 2 view 2024 025 [email or web address] [facility] (Centralized Scheduling), [address], [place], [address], 03/07/2025 14:45:58 electroca rdiogram, routine ECG, 12 leads min 2024 025 AUDI Not available 03/14/2025 04:19:38 Medication Orders None recorded. Patient TargetsNo targets recorded. Patient InstructionsNo instructions recorded. Reason for Referral None Reported. Results Created Date Observation Date Name Description Value Unit Range Abnormal Flag Note LastModifiedBy Organization Detail LastModifiedTime 03/09/2003/09/2025 elect rocar diogr am No observ ation record ed. [facility] [address], [place], [address], 03/09/2025 11:36:21 03/09/20 25 03/09/2025 elect rocar diogr am No observ ation record ed. [facility] [address], [place], [address], 03/09/2025 11:35:22 Result Notes None recorded. Problems Name Problem SNOMED Code Status Onset Date Resolution Date Notes Provider Name and Address Organization Details Recorded Time Anxiety 85811400 Active 2024 CECILIA LANZA, SPRAYER LEATHER [address] [facility], [place], [address] , [facility] & [place] 5 13:11:09 Severe obesity 7793022211836 4 Active 2024 CECILIA LANZA, SPRAYER LEATHER [address], [place], [address] , [facility] & [place] 5 13:11:32 Hyperlipid emia 53743068 Active 2024 CECILIA LANZA, SPRAYER LEATHER [address] [facility], [place], [address] , [facility] & [place] 14:30:33 Problem Notes None recorded. Procedures Surgical History Date Name Laterality Status Provider Name and Address Organization Details Recorded Time extraction of wisdom tooth completed Ira Spencer [facility] & [place] 03/07/2025 11:44:28 operation on nasal septum completed Ira Spencer [facility] & [place] 03/07/2025 11:44:38 grafting to skin completed Ira Spencer [facility] & [place] 03/07/2025 11:44:46 Imaging Results None recorded. Procedure Notes None recorded. Medical Equipment None Reported. Allergies Allergen ID Allergen Name Allergen Category Reaction Reaction Severity Criticality Documentation Date Start Date Code Code System Note Provider Name and Address Organization Details Recorded Time 091986 buspirone medicatio n dizziness Not available Not available 02/27/2025 1827 RxNorm Micaela Roach [facility] & [place] 12:30:18 Medications Name Sig Start Date Stop [...] Available Vitals Date Recorded Body height Body temperature Body mass index (BMI) Body weight Systolic blood pressure Diastolic blood pressure Provider Name and Address Organization Details Last Updated DateTime 165.1 cm 98 [degF] 51.8 kg/m2 396244. 95 g 142 mm[Hg] 92 mm[Hg] Ira Spencer [facility] & [place] 11:46:17 Social History Question Answer Notes LastModified by Jinni Details LastModified Time Tobacco Smoking Status Never Smoker Micaela Roach null, [facility] & [place] 02/27/2025 12:23:34 What Is Your Level Of Caffeine Consumption? None Information not available 02/27/2025 Sex: Unknown Functional Status Question Answer Note LastModified by Jinni Details LastModified Time What is your level of alcohol consumption? Occasional Information not available 02/27/2025 Mental Status None recorded. Family History Relationship Description Onset Age of this Age Resolved Age Notes LastModified by Organization Details LastModified Time Brother Bipolar disorder [email or web address] Not available 04/2025 11:31:10 Brother Schizophreni a Not available 04/2025 11:31:10 Father Chronic mental disorder [email or web address] Not available 04/2025 11:31:10 Maternal Grandfather Depressive disorder [email or web address] Not available 04/2025 11:31:10 Maternal Grandfather Suicide [email or web address] Not available 11:31:10 Maternal Grandmother Bipolar disorder [email or web address] Not available 04/2025 11:31:10 Maternal Grandmother Heart disease Not available 02/27 12:27:37 Mother Asthma [email or web address] Not availabl e 03/07/2025 11:31:10 Mother Depressive disorder [email or web address] Not available 04/2025 11:31:10 Mother Heart disease Not available 02/27 12:28:18 Mother Obesity Not availabl e 02/27/2025 12:28:29 Maternal Uncle Bipolar disorder [email or web address] Not available 04/2025 11:31:10 Sister Bipolar disorder [email or web address] Not available 04/2025 11:31:10 Sister Hyperlipidem ia [email or web address] Not available 04/2025 11:31:10 Medical History Condition Response Depression Y Anxiety Disorder Y Hypertension Y Gynecological HistoryNo gynecological history recorded. Obstetrics History GPAL:G 0 P 0 0 0 0 Past Encounters Encounter ID Performer Location Encounter Start Date Encounter Closed Date Diagnosis/Indication Diagnosis SNOMED-CT Code Diagnosis ICD10 Code Diagnosis Note [id number] CECILIA LANZA NP [facility] [address] [facility] [place] [address] 03/07/2025 11:17:54 03/07/2025 14:42:56 Disorder of function of stomach 676981532 K31.89 Pre-surger y evaluation 136143983 Z01.818 Obesity screening 817977 005 Z13.89 Severe obesity 224638648 1 9104 E66.813 Z68.43 The patient will [...] after all testing has been completed Anxiety 09142348 F41.[id number] [facility] [address] [place] [address] 03/07/2025 15:47:00 03/07/2025 15:51:57 Diet education 88885802 Z71.3 Completed nutrition evaluation and education with [...] to patient based on recommende d surgery. Health Concerns Section Related Observation LastModified by Organization Detai ls LastModified Time None Recorded Concern Status LastModified by Organization Details LastModified Time None Recorded Payers Encounter Date Sequence Insurance Name Policy Number Policy Richards Covered Member ID Richards Member ID Guarantor Name 03/07/2025 1 [employer] [facility] (MEDICAID HMO) Neli Cunha [id number] Neli Bowman Notes Date Note Type Note Provider Name and Address Organization Details Recorded Time 5 text/htm l RDN met w/ pt to complete initial nutritional assessment via Telehealth for intake of bariatric surgery. Pt is interested in JOEY-S.Pt is a candidate for weight loss surgery.Reservations include: none Height = 65 Weight = 311.2BMI = 51.8??? 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 See full encounter summary.Additional vitamins/supplements: with iron?Food Allergies: NKFA Meal pattern: 3x/day and snacks some in between???B - skippedS -L - leftover buffalo chicken with mashed potatoesS - carrots with ranchD - buffalo chicken with mashed potatoes and biscuit, broccoli and riceS - butter pecan cake Beverages: diet soda (6 pack per day), fruit juice, milk, water???Frequency of eating out: 2x/month Have you tried protein shakes/supplements before: slimfast protein powder in milk History tracking meals with an david or journal: yes before kids???Social Hx reviewed.Tobacco use/smoking: deniesAlcohol use: occasionalRecreational drug use: denies Current physical activity: exercising - walking daily???Recent changes: trying to eat more steamed veggies and trying to eat dinner earlier???Motivation for surgery: To live longer for kids???Support after surgery: family???Goals for surgery: 175# Additional notes/comments: SY AYALA, RD [address] [facility], [place], [address], [facility] & [place] 03/07/2025 15:51:28 5 text/htm l Patient presents today for the initial evaluation with an interest in bariatric surgery. Patients first choice for bariatric surgery is duodenal switch. Pt has been overweight most of their life. Has been 100lbs or more over weight for 10+ years. Pt reports dyspnea joint pain and mobility issues related to excess weight. The pt is pursuing weight loss surgery because excess weight directly contributes to comorbidities including HLD and anxiety. Diets include calorie counting high protein/low carb diet. Pt site physical hunger and boredom as prompts to eat. Struggles with portion size. DIET HX:The patient states that they have been overweight since childhoodThe patient states that they have been 100 lbs or more overweight many years.The patient started dieting at the age of 24Dieting methods that have been most successful in losing weight are counting caloriesThe most weight ever lost on a single dieting attempt was 100lbs and this was maintained until 2 yearsThe patient has attempted the following unsupervised diet attempts calorie counting, high protein, meal replacementsThe Patient has followed the following supervised diet attempts dietitian supervisedThe following OTC or prescribed medications have been utilized for weight loss antidepressantsBehavior treatments for weight loss that have been attempted in the past were noneThe patient has utilized the following modes of exercise to help with weight loss walkingThe patient has not use self induced behaviors to help them lose weight in the past.Currently the patient admits to an eating history of eating large meals at one sitting, skipping meals, snacking in the day and evening and late at night.The patient feels that the majority of their meals are prepared at home.Common triggers for causing the patient to overeat are anxiousness, boredom, makes me happy, loneliness, helps me handle stress. ARCENIO LANZA, SPRAYER LEATHER [address] [facility], [place], [address], [facility] - [facility] - [place] & [place] 03/07/2025 15:47:40 OBGyn Episode No OBEpisode recorded.
--- OUTSIDE RECORDS SUMMARY | 2025-03-16 15:24 | XMS_ITS | Continuity of Care Document ---
Author Organization [place] - [facility] Address [address] [place] [address] Care Team Providers Care Manager Grant Name Role Phone RAMY DONALD Primary Care Provider Assessment Encounter Date Assessment Date Assessment LastModified by Organization Details LastModified Time 03/07/2025 03/07/2025 Weigh- Ins needed: 3 Weigh-in completion: To be done with [facility] PES: Obesity/morbi d obesity r/t food and nutrition knowledge related deficit AEB BMI of 51.8 Calories: 2115 kcal (15 kcal/kg due to obesity/morbi d obesity) - 500 kcal = 1615 kcal Protein: 90 Fluids: 64+ fluid oz. RD Recommendatio ns: 1. Follow 2-4 hr rule for meal timing. Do not skip meals. 2. 64 oz noncarbonated , noncaffeinate d, sugar-free fluids/day 3. Increase physical activity to 30+ minutes 3-4x/week 4. Begin using tracking david to assess avg diet intake, track daily intake 4+ times/week 5. Try different protein shakes to find ones that you like for post surgery. A total of 15 minutes was spent with the pt today. [email or web address] Not available 03/07/2025 15:51:13 Plan of Treatment Reminders Order Date Submit Date Provider Last Modified By Organization Details Last Modified Time Details Appointments SURGERY 15 2024 09:15A M LORA LOERA MD Not available Not available Not available Weight Check 2024 02:00P Matt AYALA RD Not available Not available Not available Weight Check 2024 02:00P M RADHA STOLL RD, LD Not available Not available Not available Lab None recorded . Referral None recorded . Procedures None recorded . Surgeries None recorded . Imaging None recorded . Medication Orders None recorded . Patient TargetsNo targets recorded. Patient InstructionsNo instructions recorded. Reason for Referral None Reported. Results Created Date Observation Date Name Description Value Unit Range Abnormal Flag Note LastModifiedBy Organization Detail LastModifiedTime 03/09/2003/09/2025 elect rocar diogr am No observ ation record ed. [facility] [address], [place], [address], 03/09/2025 11:36:21 03/09/20 25 03/09/2025 elect rocar diogr am No observ ation record ed. [facility] [address], [place], [address], 03/09/2025 11:35:22 Result Notes None recorded. Problems Name Problem SNOMED Code Status Onset Date Resolution Date Notes Provider Name and Address Organization Details Recorded Time Anxiety 73729928 Active 2024 CECILIA LANZA NP [address] [place], [address] , [facility] & [place] 13:11:09 Severe obesity 5407168976423 4 Active 2024 CECILIA LANZA NP [address] [place], [address] , [facility] & [place] 5 13:11:32 Hyperlipid emia 89038014 Active 2024 CECILIA LANZA NP [address] [place], [address] , [facility] & [place] 14:30:33 Problem Notes None recorded. Procedures Surgical History Date Name Laterality Status Provider Name and Address Organization Details Recorded Time extraction of wisdom tooth completed Ira Spencer [facility] & [place] 03/07/2025 11:44:28 operation on nasal septum completed Ira Spencer [facility] & [place] 03/07/2025 11:44:38 grafting to skin completed Ira Spencer [facility] & [place] 03/07/2025 11:44:46 Imaging Results None recorded. Procedure Notes None recorded. Medical Equipment None Reported. Allergies Allergen ID Allergen Name Allergen Category Reaction Reaction Severity Criticality Documentation Date Start Date Code Code System Note Provider Name and Address Organization Details Recorded Time 406412 buspirone medicatio n dizziness Not available Not available 02/27/2025 1827 RxNorm Micaela stack, [facility] & [place] 12:30:18 Medications Name Sig Start Date Stop [...] and Address Organization Details Last Updated DateTime 5 165.1 cm 98 [degF] 51.8 kg/m2 699371. 95 g 142 mm[Hg] 92 mm[Hg] Ira Spencer [facility] & [place] 11:46:17 Social History Question Answer Notes LastModified by Organizat ion Details LastModified Time Tobacco Smoking Status Never Smoker Micaela Roach null, [facility] & [place] 02/27/2025 12:23:34 What Is Your Level Of [...] Organization Details LastModified Time Brother Bipolar disorder [email or web address] Not available 04/2025 11:31:10 Brother Schizophreni a [email or web address] Not available 04/2025 11:31:10 Father Chronic mental disorder Not available 04/2025 11:31:10 Maternal Grandfather Depressive disorder [email or web address] Not available 04/2025 11:31:10 Maternal Grandfather Suicide [email or web address] Not available 11:31:10 Maternal Grandmother Bipolar disorder [email or web address] Not available 04/2025 11:31:10 Maternal Grandmother Heart disease Not available 02/27 12:27:37 Mother Asthma [email or web address] Not availabl e 03/07/2025 11:31:10 Mother Depressive disorder [email or web address] Not available 04/2025 11:31:10 Mother Heart disease Not available 02/27 12:28:18 Mother Obesity Not availabl e 02/27/2025 12:28:29 Maternal Uncle Bipolar disorder [email or web address] Not available 04/2025 11:31:10 Sister Bipolar disorder [email or web address] Not available 04/2025 11:31:10 Sister Hyperlipidem ia [email or web address] Not available 04/2025 11:31:10 Medical History Condition Response Depression Y Anxiety Disorder Y Hypertension Y Gynecological HistoryNo gynecological history recorded. Obstetrics History GPAL:G 0 P 0 0 0 0 Past Encounters Encounter ID Performer Location Encounter Start Date Encounter Closed Date Diagnosis/Indication Diagnosis SNOMED-CT Code Diagnosis ICD10 Code Diagnosis Note [id number] CECILIA LANZA NP [facility] [address] [place] [address] [address] [place] [address] 03/07/2025 11:17:54 03/07/2025 14:42:56 Disorder of function of stomach 104020621 K31.89 Pre-surger y evaluation 919391345 Z01.818 Obesity screening 265808 005 Z13.89 Severe obesity 658715471 1 9104 E66.813 Z68.43 The patient will [...] after all testing has been completed Anxiety 30909959 F41.[id number] [facility] [address] [place] [address] [address] [place] [address] 03/07/2025 15:47:00 03/07/2025 15:51:57 Diet education 99011550 Z71.3 Completed nutrition evaluation and education with [...] Member ID Guarantor Name 03/07/2025 1 [employer] [facility] (MEDICAID HMO) Neli Cunha [id number] Neli Bowman Notes Date Note Type Note [...] family???Goals for surgery: 175# Additional notes/comments: SY AYALA RD [address] [facility], [place], [address], [facility] & [place] 03/07/2025 15:51:28 5 text/htm l Patient presents [...] loneliness, helps me handle stress. ARCENIO LANZA, MILK CONDENSER [address] [facility], [place], [address], [facility] & [place] 03/07/2025 15:47:40 OBGyn Episode No OBEpisode recorded.
--- OUTSIDE RECORDS SUMMARY | 2025-03-16 15:24 | XMS_ITS | Data Portability ---
Author Organization [place] [facility] & [place] AD[place] Address [address] [place] [address] Care Team Providers Care Spray Technician Name Role Phone RAMY DONALD Primary Care [...] minutes was spent with the pt today. [email or web address] Not available 03/07/2025 15:51:13 Plan of Treatment Reminders Order Date Submit Date Provider Last Modified By Organization Details Last Modified Time Details Appointments SURGERY 15 2024 09:15A M LORA PARKER MD Not available Not available Not available Weight Check 2024 02:00P M SY AYALA RD Not available Not available Not available Weight Check 2024 02:00P M RADHA ROSALIA DODIE RD, LD Not available Not available Not available Lab vitamin D, 25-hydrox y, total, serum 2024 025 AUDI [facility], [address], [address], [place], [address], 03/15/2025 16:27:15 vitamin A (retinol) , serum 2024 025 AUDI [facility], [address], [address], [place], [address], 03/15/2025 16:27:15 vitamin E, serum 2024 025 AUDI [facility], [address], [address], [place], [address], 03/15/2025 16:27:12 PTH (parathyr oid hormone), intact, serum or plasma 2024 025 AUDI [facility], [address], [address], [place], [address], 03/15/2025 16:27:18 CBC w/ auto diff 2024 025 AUDI [facility], [address], [address], [place], [address], 03/15/2025 16:27:10 HbA1c (hemoglob in A1c), blood 2024 025 AUDI [facility], [address], [address], [place], [address], 03/15/2025 16:27:13 lipid panel, serum 2024 025 AUDI [facility], [address], [address], [place], [address], 03/15/2025 16:27:12 TSH + free T4, serum 2024 025 AUDI [facility], [address], [address], [place], [address], 03/15/2025 16:27:09 folate, serum 2024 025 [facility], [address], [address], [place], [address], 03/15/2025 16:27:14 methylmal odell, QN, serum or plasma 2024 025 PE[facility], [address], [address], [place], [address], 03/15/2025 16:27:17 thiamine, QN, blood [address] [facility], [address], [address], [place], [address], 03/15/2025 16:27:16 CMP, serum or plasma [address] [facility], [address], [address], [place], [address], 03/15/2025 16:27:11 iron + TIBC + ferritin, serum [address] [facility], [address], [address], [place], [address], 03/15/2025 16:27:09 Referral None recorded. Procedures None recorded. Surgeries esophagog astroduod enoscopy (SURG) 2024 025 [email or web address] Lora Parker MD, [address], [address], [place], [address], 03/08/2025 12:35:10 Imaging electroca rdiogram 2024 025 [facility] Heart [facility] [place], [address], [place], [address], 03/09/2025 11:35:22 XR, chest, 2 view 2024 025 [id number] [facility] (Centralized Scheduling), [address], [place], [address], 03/07/2025 14:45:58 electroca rdiogram, routine ECG, 12 leads min 2024 025 AUDI Not available 03/14/2025 04:19:38 Medication Orders None recorded. Patient TargetsNo targets recorded. Patient InstructionsNo instructions recorded. Reason for Referral None Reported. Results Created Date Observation Date Name Description Value Unit Range Abnormal Flag Note LastModifiedBy Organization Detail LastModifiedTime 03/07/2003/08/2025 FE+TI BC+FE R iron bind.cap.(TI BC) 350 ug/dL 250-45 0 normal Not Available [facility] ([facility]) [address] [place], [address], 03/15/2025 16:27:08 03/07/20 25 03/08/2025 FE+TI BC+FE R UIBC 256 ug/dL 131-42 5 normal Not Available [facility] ([facility]) [address] [place], [address], 03/15/2025 16:27:08 03/07/20 25 03/08/2025 FE+TI BC+FE R iron 94 ug/dL 27-159 normal Not Available [facility] ([facility]) [address] [place], [address], 03/15/2025 16:27:08 03/07/20 25 03/08/2025 FE+TI BC+FE R iron saturation 27 % 15-55 normal Not Available [facility] ([facility]) [address] [place], [address], 03/15/2025 16:27:08 03/07/20 25 03/08/2025 FE+TI BC+FE R ferritin 110 NG/mL 15-150 normal Not Available [facility] ([facility]) [address] [place], [address], 03/15/2025 16:27:08 03/07/20 25 03/08/2025 TSH+F REE T4 TSH 1.810 uIU/m L 0.450- 4.500 normal Not Available [facility] ([facility]) [address] [place], [address], 03/15/2025 16:27:09 03/07/20 25 03/08/2025 TSH+F REE T4 T4,free(dire ct) 1.11 NG/dL 0.82-1 .77 normal Not Available [facility] ([facility]) [address] [place], [address], 03/15/2025 16:27:09 03/07/20 25 03/08/2025 HEMOG LOBIN A1C hemoglobin A1C 5.3 % 4.8-5. 6 normal Predi abete s: 5.7 - 6.4 Diabe josias: >6.4 Glyce charanjit contr ol for adult s with diabe josias: <7.0 Not Available [facility] ([facility]) [address] [place], [address], 03/15/2025 16:27:13 03/07/20 25 03/08/2025 FOLAT E (FOLI C ACID) , SERUM folate (folic acid), serum 16.0 NG/mL >3.0 normal A serum folat e sampson ntrat ion of less than 3.1 ng/mL is consi dered to repre sent clini merlin defic iency . Not Available [facility] ([facility]) [address] [place], [address], 03/15/2025 16:27:14 03/07/20 25 03/11/2025 VITAM IN B1 (THIA MINE) , BLOOD vit. B1, whole blood 186.0 nmol/ L 66.5-2 00.0 Not Available [facility] ([facility]) [address] [facility], [place], [address], 03/15/2025 16:27:16 03/07/20 25 03/13/2025 METHY LMALO MARTI ACID, SERUM methylmaloni c acid, serum 217 nmol/ L 0-378 Not Available [facility] ([facility]) [address] [facility], [place], [address], 03/15/2025 16:27:17 03/09/20 25 03/09/2025 elect rocar diogr am No observ ation record ed. [facility] Heart [facility] [address], [place], [address], 03/09/2025 11:36:21 03/09/20 25 03/09/2025 elect rocar diogr am No observ ation record ed. [facility] [address] [facility] [address], [place], [address], 03/09/2025 11:35:22 Result Notes None recorded. Problems Name Problem SNOMED Code Status Onset Date Resolution Date Notes Provider Name and Address Organization Details Recorded Time Anxiety 11808435 Active 2024 CECILIA LANZA, KAEL [address] [facility], [place], [address] , [facility] & [place] 13:11:09 Severe obesity 1440518721058 4 Active 2024 CECILIA LANZA NP [address] [facility], [place], [address] , [facility] & [place] 13:11:32 Hyperlipid emia 24225809 Active 2024 CECILIA LANZA NP [address] [facility], [place], [address] , [facility] & [place] 14:30:33 Problem Notes None recorded. Procedures Surgical History Date Name Laterality Status Provider Name and Address Organization Details Recorded Time extraction of wisdom tooth completed Ira Spencer [facility] & [place] 03/07/2025 11:44:28 operation on nasal septum completed Ira Spencer [facility] [place] 03/07/2025 11:44:38 grafting to skin completed Ira Spencer [facility] [place] 03/07/2025 11:44:46 Imaging Results Imaging Date Name Status LastModified by Organization Details LastModified Time 03/09/2025 electrocardiogram completed [place] [address], [place], [address], 03/09/2025 11:36:21 03/09/2025 electrocardiogram completed [place] [address], [place], [address], 03/09/2025 11:35:22 Procedure Notes None recorded. Medical Equipment None Reported. Allergies Allergen ID Allergen Name Allergen Category Reaction Reaction Severity Criticality Documentation Date Start Date Code Code System Note Provider Name and Address Organization Details Recorded Time 177322 buspirone medicatio n dizziness Not available Not available 02/27/2025 1827 RxNorm [facility] [place] 12:30:18 Medications Name Sig Start Date Stop [...] DateTime 165.1 cm 98 [degF] 51.8 kg/m2 995022. 95 g 142 mm[Hg] 92 mm[Hg] Ira Spencer [facility] [place] 11:46:17 Date Recorded Body height Body mass index (BMI) Body weight Oxygen saturation Oxygen saturation in Arterial blood by Pulse oximetry Heart rate Systolic blood pressure Diastolic blood pressure Provider Name and Address Organization Details Last Updated DateTime 165.1 cm 51.6 kg/m2 418817. 63 g 99 % 99 % 78 /min 115 mm[Hg] 75 mm[Hg] Celena Ana [facility] & [place] 10:55:34 Social History Question Answer Notes LastModified by [employer] Details LastModified Time Tobacco Smoking Status Never Smoker Micaela Kotharidi [facility] & [place] 02/27/2025 12:23:34 What Is Your Level Of Caffeine Consumption? None Information not available 02/27/2025 Sex: Unknown Functional Status Question Answer Note LastModified by [employer] Details LastModified Time What is your level of alcohol consumption? Occasional Information not available 02/27/2025 Mental Status None recorded. Family History Relationship Description Onset Age of this Age Resolved Age Notes LastModified by Organization Details LastModified Time Brother Bipolar disorder [email or web address] Not available 04/2025 11:31:10 Brother Schizophreni a [email or web address] Not available 04/2025 11:31:10 Father Chronic mental disorder [email or web address] Not available 04/2025 11:31:10 Maternal Grandfather Depressive disorder [email or web address] Not available 04/2025 11:31:10 Maternal Grandfather Suicide [email or web address] Not available 11:31:10 Maternal Grandmother Bipolar disorder [email or web address] Not available 04/2025 11:31:10 Maternal Grandmother Heart disease Not available 02/27 12:27:37 Mother Asthma [email or web address] Not availabl e 03/07/2025 11:31:10 Mother Depressive disorder [email or web address] Not available 04/2025 11:31:10 Mother Heart disease Not available 02/27 12:28:18 Mother Obesity Not availabl e 02/27/2025 12:28:29 Maternal Uncle Bipolar disorder [email or web address] Not available 04/2025 11:31:10 Sister Bipolar disorder [email or web address] Not available 04/2025 11:31:10 Sister Hyperlipidem ia Not available 04/2025 11:31:10 Medical History Condition Response Depression Y Anxiety Disorder Y Hypertension Y Gynecological HistoryNo gynecological history recorded. Obstetrics History GPAL:G 0 P 0 0 0 0 Past Encounters Encounter ID Performer Location Encounter Start Date Encounter Closed Date Diagnosis/Indication Diagnosis SNOMED-CT Code Diagnosis ICD10 Code Diagnosis Note [id number] CECILIA LANZA NP [facility] Bariatric s and Adv Surg [address] [facility] [address] [place] [address] 03/07/2025 11:17:54 03/07/2025 14:42:56 Disorder of function of stomach 528183950 K31.89 Pre-surger y evaluation 406251588 Z01.818 Obesity screening 096769 005 Z13.89 Severe obesity 710847175 1 9104 E66.813 Z68.43 The patient will [...] after all testing has been completed Anxiety 62147909 F41.[id number] [facility] Bariatric s and Adv Surg [address] [facility] [address] [place] [address] 03/07/2025 15:47:00 03/07/2025 15:51:57 Diet education 99219362 Z71.3 Completed nutrition evaluation and education with [...] to patient based on recommende d surgery. [id number] Natalia Lopez MD [facility] Heart [facility] [address] [facility] [address] [place] [address] 03/09/2025 10:45:53 03/09/2025 11:16:06 Preoperative procedure 171757199 Z01.810 29 year old female Normal EKG. physically active, no limitation s. can proceed with the surgery as low risk patient for moderate risk procedure from the cardiovasc ular standpoint . Hypertriglyceridemia 302 497220 E78.1 on fenofibrat e. follow up lipid panel fasting. Anxiety 26246968 F41.9 On propranolo l and Lamotrigin e. Severe obesity 500977548 1 9104 E66.813 Z68.43 BMI 51.6. sleep apnea study was negative as per the patient. Health Concerns Section Related Observation LastModified by Organization Detai ls LastModified Time None Recorded Concern Status LastModified by Organization Details LastModified Time None Recorded Advance Directives Directive None Recorded Payers Insurance Date Sequence Insurance Name Policy Number Policy Richards Covered Member ID Richards Member ID Guarantor Name 03/10/2025 1 [facility] (MEDICAID HMO) Neli Cunha [id number] Neli Bowman Notes Date Note Type Note [...] surgery: family???Goals for surgery: 175# Additional notes/comments: YS AYALA, RD [address] , [place], [address], [facility] [place] & [place] 03/07/2025 15:51:28 5 text/htm l Patient presents [...] loneliness, helps me handle stress. ARCENIO LANZA, [employer]ACITY PL[employer]NER [address] , [place], [address], [facility] [place] & [place] 03/07/2025 15:47:40 5 text/htm l 29 year old female with past medical [...] sinus rhythm, normal EKG. Natalia Lopez MD [address], [place], [address], [facility] [place] & [place] 03/09/2025 11:24:28 OBGyn Episode No OBEpisode recorded.
[2025-03-16 16:11] LABS: Basophils % 0.1 % (0.1-2.0); Eosinophils % 0.1 % (0.1-12.0); Hemoglobin 14.9 g/dL (12.2-16.2); Immature Granulocytes # 0.05 10^3uL; Immature Granulocytes % 0.6 %; Lymphocytes # 2.1 K/mm3 (0.7-4.5); Lymphocytes % 25.9 % (10-50); Mean Corpuscular HGB Conc 35.5 g/dL (31.8-35.4); Mean Corpuscular Hemoglobin 28.9 pg (27.0-31.2); Mean Corpuscular Volume 81.6 fl (81-99); Mean Platelet Volume 9.3 fl (7.4-10.4); Monocytes # 0.5 K/mm3 (0.1-1.0); Monocytes % 5.6 % (1.7-9.3); Neutrophils # 5.4 K/mm3 (1.8-7.8); Neutrophils % 67.7 % (37.0-80.0); Nucleated Red Blood Cells # 0 10^3/uL; Nucleated Red Blood Cells % 0 %; Platelet Count 228 K/mm3 (142-424); Red Blood Count 5.15 M/mm3 (4.20-5.40); Red Cell Distribution Width 12.2 % (11.5-17.5)
[2025-03-16 16:32] LABS: Chloride 107 mmol/L (98-107)
[2025-03-16 16:33] LABS: Albumin Level 4.7 g/dl (3.5-5.0); Sodium 138 mmol/L (136-145)
[2025-03-16 16:35] LABS: Alanine Aminotransferase 49 U/L (12-78); Aspartate Amino Transferase 41 U/L (14-36); Blood Urea Nitrogen 17 mg/dl (7-17); Carbon Dioxide 24 mmol/L (22.0-30.0); Estimated Glomerular Filt Rate 84 ml/min (>60); GFR (African American) 102 ML/MIN (>60)
[2025-03-16 16:36] LABS: Albumin/Globulin Ratio 1.7 (1.1-1.8); Alkaline Phosphatase 39 U/L (38-126); Bilirubin,Total 0.5 mg/dl (0.2-1.3); Calcium 9.9 mg/dl (8.4-10.2); Globulin 2.8 g/dL (1.3-3.2); Glucose 120 mg/dl (74-100); Total Protein,Serum 7.5 g/dl (6.3-8.2)
[2025-03-17 08:15] LABS: Lithium (Eskalith(R)) 0.2 mmol/L (0.5-1.2)
== END 2025-03-16 23:59 | disposition home or self-care (01) ==
LOC: LAB 15:21
PROVIDERS: Registered Nurse Emergency; PCP Nurse Practitioner Family; Visit Provider Family Medicine
DX: Z01.818 Encounter for other preprocedural examination (principal); F31.32 Bipolar disorder, current episode depressed, moderate; F41.1 Generalized anxiety disorder
CPT/HCPCS: 36415; 71046; 80053; 80178; 85025

== ENCOUNTER 2025-03-24 12:49 | Outpatient (CLI) | payer OTHER, SELFPAY ==
--- OUTSIDE RECORDS SUMMARY | 2025-03-24 12:50 | XMS_ITS | Continuity of Care Document ---
Author Organization [facility] Phone Care Team Providers Care Driving Instructor Name Role Phone LUZ MARIALORA DE GUZMAN Primary Attending RAMY DONALD Primary Care [email or web address] LUZ MARIADOLLYAH Admitting ALLERGIES AND ADVERSE REACTIONS ALLERGIES AND ADVERSE REACTIONS Code System Allergy Substance Adverse Reaction Date Reaction (Severity) Comment Status Reported By Updated By 182 RXNorm Buspar Drug-induced nausea and vomiting suicidal thoughts active [id number] on March 23, 2025 3:05:54 PM [place] FAMILY HISTORY RELATION: Father Status: LIVING SNOMED-CT Diagnosis Age At Onset Information not available RELATION: Mother Status: LIVING SNOMED-CT Diagnosis Age At Onset 968226934 Asthma 24071088 Migraine 27747815 Heart disease RESULTS Patient: ADOLPH Sandoval Date of : 1995 4 LABORATORY RESULTS ORDER 200: URINE T EST (LOINC: 6-) ORDER DATE: March 23, 2025 3:00:00 PM UTC Specimen Source: URINE Specimen Type: Urine specime n PERFORMING LAB: [address] [id number] Result Comment: Final Result Date: March 23, 2025 3:03:00 PM UTC (TECH: ADB) LOINC TEST FLAG RESULT REFERENCE RANGE UPDA VENU BY 2105-12 Choriogonadotropin ( test) [Presence] in Urine N NEGATIVE NEGATIVE March 3:03:00 PM UTC (TECH: ADB) 94127-9 Reagent Lot number N [id number] M ay 2024 3:03:00 PM UTC (TECH: ADB) 74767-2 Choriogonadotropin [Units/volume] in Serum or Plasma N 12-22-25 March 23, 2025 3:03:00 PM UTC (TECH: ADB) 44323-5 Internal control result N OK POSITI VE March 23, 2025 3:03:00 PM [facility] (TECH: ADB) LABORATORY NARRATIVE RESULTS Information is not available RADIOLOGY RESULTS Information is not available PATHOLOGY NARRATIVE RESULTS Information is not available MICROBIOLOGY RESULTS No Micro Labs/Results Exist for Patient BLOOD ADMIN RESULTS Information is not available TREATMENT PLAN DISCHARGE MEDICATIONS Status RXNORM Medication Dose Route Frequency Dates Comments U pdated By Patient discharge medication information is not available. PATIENT OPEN ORDERS Code System Description Frequency Occurrences Priority Start Date Ordering Physician Updated By 7900-4 [facility] Helicobacter pylori Ab [Units/volume] in Serum ONE TIME 0 Routine March 23, 2025 3:13:0 0 PM [facility] LUZ MARIA [id number] on March 23, 2025 3:13:00 PM [facility] SCHEDULED PROCEDURES Code System Description Status Scheduled Date Upd ated By Patient scheduled procedure information is not available. MEDICATIONS HOME MEDICATIONS Status RXNORM [facility] Medication Dose Route Frequency Dates Comments Reported By Updated By Active 190073 76580 68745 2 hydroxyzine pamoate 100 mg capsule 1.0 CAP ORAL BID Last Dose: March 23, 2025 4:00:0 0 AM [facility] [email or web address] on March 23, 2025 3:09:09 PM [facility] Active 177936 89933 07497 0 Lamictal 200 mg tablet 1.0 TAB ORAL DAILY Last Dose: March 23, 2025 4:00:0 0 AM [facility] [id number] on March 23, 2025 3:09:03 PM [facility] Active 242564 96274 81629 1 prazosin 1 mg capsule 1.0 CAP ORAL BEDTIME Last Dose: March 23, 2025 4:00:0 0 AM [place] [id number] on March 23, 2025 3:08:56 PM [facility] Active 463298 65839 85026 1 Pristiq 100 mg Tablet, Extended Release 24 hr 1.0 TAB ORAL QAM Last Dose: March 23, 2025 4:00:0 0 AM [facility] Last Dose Unknown; [id number] on March 23, 2025 3:08:26 PM [facility] Active FreeT extMe d propranolol oral 100 1.0 CAP TID Last Dose: March 23, 2025 4:00:0 0 AM [facility] [email or web address] on March 23, 2025 3:08:34 PM [facility] Active 2203912 44997 89335 1 Viibryd 10 mg tablet 1.0 TAB ORAL DAILY Last Dose: March 23, 2025 4:00:0 0 AM [facility] Last Dose Unknown; [email or web address] on March 23, 2025 3:08:47 PM [facility] Active 311696 92880 89342 5 Afton Carbonate ER Oral Tablet Extended Release 450 MG 1.0 TAB ORAL DAILY Last Dose: March 23, 2025 4:00:0 0 AM [facility] [email or web address] on March 23, 2025 3:09:28 PM [facility] DISCHARGE MEDICATIONS Status RXNORM [facility] Medication Dose Route Frequency Dates Comments Physician Updated By No Discharge Medication Info rmation Available [facility] MED[facility] Medication Dose Route Frequency Rat e Quantity Dates Comments Physician Updated By Active 044251 1683 8011 704 LACTATED RINGERS SOLN 1000. 0 ML INTRAV ENOUS ONE TIME ADMINISTRA TION (UNSCHEDUL ED) 25.0 ML/HR Start: March 22, 2025 5:02:0 0 PM [place] End: March 23, 2025 9:49:0 0 PM [facility] SJ Eaton [id number] on March 22, 2025 5:02:00 PM [facility] Active 8187221 8001 8004 904 sodium chloride 0.9% SOLN 1000. 0 ML INTRAV ENOUS ONE TIME ADMINISTRA TION (UNSCHEDUL ED) 25.0 ML/HR Start: March 22, 2025 5:02:0 0 PM [place] End: March 23, 2025 9:49:0 0 PM [facility] SJ Eaton [id number] on March 22, 2025 5:02:00 PM [facility] Discont inued 4228930 9735 503 542 PROPOFOL 500 MG/50ML EMUL 500.0 MG INTRAV ENOUS ONE TIME ONLY (SCHEDULED DOSE) 20.833 MG/HR Start: March 23, 2025 6:08:0 0 PM [place] End: March 23, 2025 6:13:4 0 PM [facility] LUZ MARIA PAULINO [id number] on March 23, 2025 6:13:00 PM [facility] Discont inued 3635486 5640 3020 202 LIDOCAINE HCL 2 % SOLN 2.0 ML ONE TIME ONLY (SCHEDULED DOSE) 0.083 ML/HR Start: March 23, 2025 6:08:0 0 PM [place] End: March 23, 2025 6:13:4 0 PM [facility] LUZ MARIA PAULINO [id number] on March 23, 2025 6:13:00 PM [facility] SOCIAL HISTORY SOCIAL HISTORY SNOMED-CT Social History Element Description Effective Dates Offered Cessation Comment UpdatedBy [id number] Current Tobacco smoking status Never Smoked [id number] on March 22, 2025 1:24:55 PM [facility] 563785392427731 Historical Tobacco smoking status Current Some Day Smoker Yes THC [id number] on May 10, 2022 8:11:23 PM [facility] SOCIAL HISTORY - Gender Sex: Female SOCIAL HISTORY - Status : status i nformation is not available Intention in Next Year: intention information is not available SOCIAL HISTORY - Sexual Behavior Sexual Orientation Gender Identity SNOMED-CT Description SNO MED -CT Description Activity Level No of Partners Partner Type UpdatedBy Information is not available VITAL SIGNS PATIENT VITAL SIGNS This section displays the mo st recent value for each vital sign as of March 24, 2025 4:14:08 AM [facility] Loinc Code Vital Sign Activity Date Result Updated By 8302-2 Body height March 23, 2025 3:06:17 PM [facility] 165.1 cm (65.0 in) [email or web address] on March 23, 2025 3:06:17 PM [facility] 27516-6 Body mass index (BMI) [Ratio] March 23, 2025 3:06:17 PM [facility] 50.627 kg/m2 [id number] on March 23, 2025 3:06:17 PM [facility] 3140-1 Body Surface Area Derived From Formula March 23, 2025 3:06:17 PM [facility] 2.3642 m2 [id number] on March 23, 2025 3:06:17 PM [facility] 00769-0 Body weight Measured March 23 3:06:17 PM [facility] 138.0 kg (304.0 lb) [id number] on March 23, 2025 3:06:17 PM [facility] PEDIATRIC GROWTH CHART - VITAL SIGNS This section displays Head C ircumference Percentile, Weight for Length Percentile and BMI Percentile Loinc Code Pediatric Measure Age (Months) Result Updat ed By No Pediatric Growth Chart Pe rcentile Information Available. PROCEDURES PATIENT PROCEDURES CODE SYSTEM DESCRIPTION STATUS PERFORMED DATE UPD ATED BY [id number] SNOMED-CT Esophagogastroduodenoscopy completed March 23, 2025 4:00:00 AM [facility] [id number] on March 23, 2025 3:13:08 PM [facility] PROCEDURE NOTE Procedure Note information i s not available. HEALTH CONCERNS Problems Concern Status Health Concern problem infor mation not available. Smoking Status Status Years Used Consumed packs p er day Health Concern smoking histo ry information not available. Family History Concern Status Health Concern family histor y information not available. ENCOUNTERS ENCOUNTER INFORMATION Reason for Visit EGD WITH BIOPSY Admission March 23, 2025 1:49:[address] [address] Discharge March 23, 2025 9:49:00 PM [facility] DISC HARGED TO HOME OR SELF CARE ENCOUNTER DIAGNOSES Notes information is not jayme ilable. Code System Diagnosis Onset Date Diagnosis information is not available. ABSTRACT DIAGNOSES Code System Diagnosis Updated By K31.89 ICD10 OTHER DISEASES O F STOMACH AND DUODENUM [id number] on March 14, 2025 1:49:29 PM [facility] CARE TEAM Care Driving Instructor Role LORA LOERA Primary Attending RAMY DONALD Primary Care LORA LOERA Admitting CARE TEAM CARE software administrator Role on Team Status Start Date End Date Update d By SHABANA MCCANN PCP normal March 14, 2025 1:49:29 PM [facility] March 23, 2025 9:49:00 PM [facility] [id number] on March 14, 2025 1:49:29 PM [facility] LUZ MARIA LEYVA Attending normal March 14, 2025 1:49:29 PM [facility] March 23, 2025 9:49:00 PM [facility] [id number] on March 14, 2025 1:49:29 PM [facility] LUZ MARIA LEYVA Admitting normal March 14, 2025 1:49:29 PM [facility] March 23, 2025 9:49:00 PM [facility] [id number] on March 14, 2025 1:49:29 PM [facility]
--- OUTSIDE RECORDS SUMMARY | 2025-03-24 12:51 | XMS_ITS | Data Portability ---
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 [email or web address] Not available 03/07/2025 15:51:13 Plan of Treatment Reminders Order Date Submit Date Provider Last Modified By Organization Details Last Modified Time Details Appointments Weight Check 2024 02:00P M SY AYALA RD Not available Not available Not available Weight Check 2024 02:00P M RADHA STOLL RD, LD Not available Not available Not available Lab vitamin D, 25-hydrox y, total, serum 2024 025 AUDI [facility], [address], [address], [place], [address], 03/15/2025 16:27:15 vitamin A (retinol) , serum 2024 025 AUDI [facility], [address], [address], [place], [address], 03/15/2025 16:27:15 vitamin E, serum 2024 025 AUDI [facility], [address], [address], [place], [address], 03/15/2025 16:27:12 PTH (parathyr oid hormone), intact, serum or plasma 2024 025 AUDI [facility], [address], [address], [place], [address], 03/15/2025 16:27:18 CBC w/ auto diff 2024 025 AUDI [facility], [address], [address], [place], [address], 03/15/2025 16:27:10 HbA1c (hemoglob in A1c), blood 2024 025 AUDI [facility], [address], [address], [place], [address], 03/15/2025 16:27:13 lipid panel, serum 2024 025 AUDI [facility], [address], [address], [place], [address], 03/15/2025 16:27:12 TSH + free T4, serum 2024 025 AUDI [facility], [address], [address], [place], [address], 03/15/2025 16:27:09 folate, serum 2024 025 [facility], [address], [address], [place], [address], 03/15/2025 16:27:14 methylmal odell, QN, serum or plasma 2024 025 [facility], [address], [address], [place], [address], 03/15/2025 16:27:17 thiamine, QN, blood 2024 025 [facility], [address], [address], [place], [address], 03/15/2025 16:27:16 CMP, serum or plasma 2024 025 [facility], [address], [address], [place], [address], 03/15/2025 16:27:11 iron + TIBC + ferritin, serum 2024 025 [facility], [address], [address], [place], [address], 03/15/2025 16:27:09 Referral None recorded. Procedures None recorded. Surgeries esophagog astroduod enoscopy (SURG) 2024 025 [email or web address] Livier Parker MD, [address], [address], [place], [address], 03/08/2025 12:35:10 Imaging electroca rdiogram 2024 025 [facility], [address], [place], [address], 03/09/2025 11:35:22 XR, chest, 2 view 2024 025 AUDI [facility] (Centralized Scheduling), [address], [place], [address], 03/16/2025 17:24:13 electroca rdiogram, routine ECG, 12 leads min 2024 025 AUDI Not available 03/14/2025 04:19:38 Medication Orders None recorded. Patient TargetsNo targets recorded. Patient InstructionsNo instructions recorded. Reason for Referral None Reported. Results Created Date Observation Date Name Description Value Unit Range Abnormal Flag Note LastModifiedBy Organization Detail LastModifiedTime 03/07/2003/08/2025 FE+TI BC+FE R iron bind.cap.(TI BC) 350 ug/dL 250-45 0 normal Not Available [facility] ([facility]) [address] [place], [address], 03/15/2025 16:27:08 03/07/20 25 03/08/2025 FE+TI BC+FE R UIBC 256 ug/dL 131-42 5 normal Not Available [facility] ([facility]) [address] [place], [address], 03/15/2025 16:27:08 03/07/20 25 03/08/2025 FE+TI BC+FE R iron 94 ug/dL 27-159 normal Not Available [facility] ([facility]) [address] [place], [address], 03/15/2025 16:27:08 03/07/20 25 03/08/2025 FE+TI BC+FE R iron saturation 27 % 15-55 normal Not Available [facility] ([facility]) [address] [place], [address], 03/15/2025 16:27:08 03/07/20 25 03/08/2025 FE+TI BC+FE R ferritin 110 NG/mL 15-150 normal Not Available [facility] ([facility]) [address] [place], [address], 03/15/2025 16:27:08 03/07/20 25 03/08/2025 TSH+F REE T4 TSH 1.810 uIU/m L 0.450- 4.500 normal Not Available [facility] ([facility]) [address] [place], [address], 03/15/2025 16:27:09 03/07/20 25 03/08/2025 TSH+F REE T4 T4,free(dire ct) 1.11 NG/dL 0.82-1 .77 normal Not Available [facility] ([facility]) [address] [place], [address], 03/15/2025 16:27:09 03/07/20 25 03/08/2025 CBC WITH DIFFE RENTI AL/PL ATELE T WBC 9.1 x10e3 /uL 3.4-10 .8 normal Not Available [facility] ([facility]) [address] [place], [address], 03/15/2025 16:27:10 03/07/20 25 03/08/2025 CBC WITH DIFFE RENTI AL/PL ATELE T RBC 5.40 x10e6 /uL 3.77-5 .28 above high normal Not Available [facility] ([facility]) [address] [place], [address], 03/15/2025 16:27:10 03/07/20 25 03/08/2025 CBC WITH DIFFE RENTI AL/PL ATELE T hemoglobin 15.3 g/dL 11.1-1 5.9 normal Not Available [facility] ([facility]) [address] [place], [address], 03/15/2025 16:27:10 03/07/20 25 03/08/2025 CBC WITH DIFFE RENTI AL/PL ATELE T hematocrit 46.2 % 34.0-4 6.6 normal Not Available [facility] ([facility]) [address] [facility], [place], [address], 03/15/2025 16:27:10 03/07/20 25 03/08/2025 CBC WITH DIFFE RENTI AL/PL ATELE T MCV 86 fL 79-97 normal Not Available [facility] ([facility]) [address] [facility], [place], [address], 03/15/2025 16:27:10 03/07/20 25 03/08/2025 CBC WITH DIFFE RENTI AL/PL ATELE T MCH 28.3 pg 26.6-3 3.0 normal Not Available [facility] ([facility]) [address] [facility], [place], [address], 03/15/2025 16:27:10 03/07/20 25 03/08/2025 CBC WITH DIFFE RENTI AL/PL ATELE T MCHC 33.1 g/dL 31.5-3 5.7 normal Not Available [facility] ([facility]) [address] [facility], [place], [address], 03/15/2025 16:27:10 03/07/20 25 03/08/2025 CBC WITH DIFFE RENTI AL/PL ATELE T RDW 13.0 % 11.7-1 5.4 Not Available [facility] ([facility]) [address] [place], [address], 03/15/2025 16:27:10 03/07/20 25 03/08/2025 CBC WITH DIFFE RENTI AL/PL ATELE T platelets 246 x10e3 /uL 150-45 0 normal Not Available [facility] ([facility]) [address] [place], [address], 03/15/2025 16:27:10 03/07/20 25 03/08/2025 CBC WITH DIFFE RENTI AL/PL ATELE T neutrophils 65 % not estab. normal Not Available [facility] ([facility]) [address] [place], [address], 03/15/2025 16:27:10 03/07/20 25 03/08/2025 CBC WITH DIFFE RENTI AL/PL ATELE T lymphs 28 % not estab. normal Not Available [facility] ([facility]) [address] [facility], [place], [address], 03/15/2025 16:27:10 03/07/20 25 03/08/2025 CBC WITH DIFFE RENTI AL/PL ATELE T monocytes 6 % not estab. normal Not Available [facility] ([facility]) [address] [facility], [place], [address], 03/15/2025 16:27:10 03/07/20 25 03/08/2025 CBC WITH DIFFE RENTI AL/PL ATELE T eos 0 % not estab. normal Not Available [facility] ([facility]) [address] [facility], [place], [address], 03/15/2025 16:27:10 03/07/20 25 03/08/2025 CBC WITH DIFFE RENTI AL/PL ATELE T basos 0 % not estab. normal Not Available [facility] ([facility]) [address] [facility], [place], [address], 03/15/2025 16:27:10 03/07/20 25 03/08/2025 CBC WITH DIFFE RENTI AL/PL ATELE T immature cells NIGHT CLUB MANAGER Not Available [facility] ([facility]) [address] [facility], [place], [address], 03/15/2025 16:27:10 03/07/20 25 03/08/2025 CBC WITH DIFFE RENTI AL/PL ATELE T neutrophils (absolute) 5.9 x10e3 /uL 1.4-7. 0 normal Not Available [facility] ([facility]) [address] [facility], [place], [address], 03/15/2025 16:27:10 03/07/20 25 03/08/2025 CBC WITH DIFFE RENTI AL/PL ATELE T lymphs (absolute) 2.6 x10e3 /uL 0.7-3. 1 normal Not Available [facility] ([facility]) [address] [place], [address], 03/15/2025 16:27:10 03/07/20 25 03/08/2025 CBC WITH DIFFE RENTI AL/PL ATELE T monocytes(ab solute) 0.6 x10e3 /uL 0.1-0. 9 normal Not Available [facility] ([facility]) [address] [place], [address], 03/15/2025 16:27:10 03/07/20 25 03/08/2025 CBC WITH DIFFE RENTI AL/PL ATELE T eos (absolute) 0.0 x10e3 /uL 0.0-0. 4 normal Not Available [facility] ([facility]) [address] [place], [address], 03/15/2025 16:27:10 03/07/20 25 03/08/2025 CBC WITH DIFFE RENTI AL/PL ATELE T baso (absolute) 0.0 x10e3 /uL 0.0-0. 2 normal Not Available [facility] ([facility]) [address] [place], [address], 03/15/2025 16:27:10 03/07/20 25 03/08/2025 CBC WITH DIFFE RENTI AL/PL ATELE T immature granulocytes 1 % not estab. Not Available [facility] ([facility]) [address] [place], [address], 03/15/2025 16:27:10 03/07/20 25 03/08/2025 CBC WITH DIFFE RENTI AL/PL ATELE T immature grans (abs) 0.1 x10e3 /uL 0.0-0. 1 Not Available [facility] ([facility]) [address] [place], [address], 03/15/2025 16:27:10 03/07/20 25 03/08/2025 CBC WITH DIFFE RENTI AL/PL ATELE T NRBC NIGHT CLUB MANAGER Not Available [facility] ([facility]) [address], [place], [address], 03/15/2025 16:27:10 03/07/20 25 03/08/2025 CBC WITH DIFFE RENTI AL/PL ATELE T hematology comments: NIGHT CLUB MANAGER Not Available [facility] ([facility]) [address], [place], [address], 03/15/2025 16:27:10 03/07/20 25 03/08/2025 COMP. METAB OLIC PANEL (14) glucose 79 mg/dL 70-99 normal Not Available [facility] ([facility]) [address] [facility] [place], [address], 03/15/2025 16:27:11 03/07/20 25 03/08/2025 COMP. METAB OLIC PANEL (14) BUN 11 mg/dL 6-20 normal Not Available [facility] ([facility]) [address] [facility] [place], [address], 03/15/2025 16:27:11 03/07/20 25 03/08/2025 COMP. METAB OLIC PANEL (14) creatinine 0.86 mg/dL 0.57-1 .00 normal Not Available [facility] ([facility]) [address] [facility], [place], [address], 03/15/2025 16:27:11 03/07/20 25 03/08/2025 COMP. METAB OLIC PANEL (14) eGFR 93 mL/mi n/1.7 3 >59 normal Not Available [facility] ([facility]) [address] [facility] [place], [address], 03/15/2025 16:27:11 03/07/20 25 03/08/2025 COMP. METAB OLIC PANEL (14) BUN/creatini ne ratio 13 9-23 normal Not Available [facility] ([facility]) [address] [facility] [place], [address], 03/15/2025 16:27:11 03/07/20 25 03/08/2025 COMP. METAB OLIC PANEL (14) sodium 138 mmol/ L 134-14 4 normal Not Available [facility] ([facility]) [address] [facility] [place], [address], 03/15/2025 16:27:11 03/07/20 25 03/08/2025 COMP. METAB OLIC PANEL (14) potassium 4.6 mmol/ L 3.5-5. 2 normal Not Available [facility] ([facility]) [address] [facility] [place], [address], 03/15/2025 16:27:11 03/07/20 25 03/08/2025 COMP. METAB OLIC PANEL (14) chloride 100 mmol/ L 96-106 normal Not Available [facility] ([facility]) [address] [facility] [place], [address], 03/15/2025 16:27:11 03/07/20 25 03/08/2025 COMP. METAB OLIC PANEL (14) carbon dioxide, total 23 mmol/ L 20-29 normal Not Available [facility] ([facility]) [address] [facility] [place], [address], 03/15/2025 16:27:11 03/07/20 25 03/08/2025 COMP. METAB OLIC PANEL (14) calcium 9.9 mg/dL 8.7-10 .2 normal Not Available [facility] ([facility]) [address] [facility] [place], [address], 03/15/2025 16:27:11 03/07/20 25 03/08/2025 COMP. METAB OLIC PANEL (14) protein, total 7.7 g/dL 6.0-8. 5 normal Not Available [facility] ([facility]) [address] [facility] [place], [address], 03/15/2025 16:27:11 03/07/20 25 03/08/2025 COMP. METAB OLIC PANEL (14) albumin 4.6 g/dL 4.0-5. 0 normal Not Available [facility] ([facility]) [address] [facility] [place], [address], 03/15/2025 16:27:11 03/07/20 25 03/08/2025 COMP. METAB OLIC PANEL (14) globulin, total 3.1 g/dL 1.5-4. 5 Not Available [facility] ([facility]) [address] [facility] [place], [address], 03/15/2025 16:27:11 03/07/20 25 03/08/2025 COMP. METAB OLIC PANEL (14) bilirubin, total 0.4 mg/dL 0.0-1. 2 normal Not Available [facility] ([facility]) [address] [facility] [place], [address], 03/15/2025 16:27:11 03/07/20 25 03/08/2025 COMP. METAB OLIC PANEL (14) alkaline phosphatase 46 IU/L 44-121 normal Not Available [facility] ([facility]) [address] [facility] [place], [address], 03/15/2025 16:27:11 03/07/20 25 03/08/2025 COMP. METAB OLIC PANEL (14) AST (SGOT) 28 IU/L 0-40 normal Not Available [facility] ([facility]) [address] [place], [address], 03/15/2025 16:27:11 03/07/20 25 03/08/2025 COMP. METAB OLIC PANEL (14) ALT (SGPT) 43 IU/L 0-32 above high normal Not Available [facility] ([facility]) [address] [place], [address], 03/15/2025 16:27:11 03/07/20 25 03/08/2025 LIPID PANEL cholesterol, total 214 mg/dL 100-19 9 above high normal Not Available [facility] ([facility]) [address] [place], [address], 03/15/2025 16:27:12 03/07/20 25 03/08/2025 LIPID PANEL triglyceride s 386 mg/dL 0-149 above high normal Not Available [facility] ([facility]) [address] [place], [address], 03/15/2025 16:27:12 03/07/20 25 03/08/2025 LIPID PANEL HDL cholesterol 31 mg/dL >39 below low normal Not Available [facility] ([facility]) [address] [place], [address], 03/15/2025 16:27:12 03/07/20 25 03/08/2025 LIPID PANEL VLDL cholesterol merlin 67 mg/dL 5-40 above high normal Not Available [facility] ([facility]) [address] [place], [address], 03/15/2025 16:27:12 03/07/20 25 03/08/2025 LIPID PANEL LDL chol calc ([facility]) 116 mg/dL 0-99 above high normal Not Available [facility] ([facility]) [address] [place], [address], 03/15/2025 16:27:12 03/07/20 25 03/08/2025 LIPID PANEL LDL calc comment: NIGHT CLUB MANAGER Not Available [facility] ([facility]) [address] [place], [address], 03/15/2025 16:27:12 03/07/20 25 03/15/2025 VITAM IN E vitamin E(alpha tocopherol) 21.3 mg/L 5.9-19 .4 above high normal Not Available [facility] ([facility]) [address] [facility], [place], [address], 03/15/2025 16:27:12 03/07/20 25 03/15/2025 VITAM IN E vitamin E(gamma tocopherol) 3.5 mg/L 0.7-4. 9 Refer ence inter vals for alpha and gamma -toco phero l deter mined from [facility] Nutri tion Exami natio n Surve y, 2004- 2005. Indiv idual s with alpha -toco phero l level s less than 5.0 mg/L are consi dered vitam in E defic ient. Not Available [facility] ([facility]) [address] [facility], [place], [address], 03/15/2025 16:27:12 03/07/20 25 03/08/2025 HEMOG LOBIN A1C hemoglobin A1C 5.3 % 4.8-5. 6 normal Predi abete s: 5.7 - 6.4 Diabe josias: >6.4 Glyce charanjit contr ol for adult s with diabe josias: <7.0 Not Available [facility] ([facility]) [address] [facility], [place], [address], 03/15/2025 16:27:13 03/07/20 25 03/08/2025 FOLAT E (FOLI C ACID) , SERUM folate (folic acid), serum 16.0 NG/mL >3.0 normal A serum folat e sampson ntrat ion of less than 3.1 ng/mL is consi dered to repre sent clini merlin defic iency . Not Available [facility] ([facility]) [address] [facility], [place], [address], 03/15/2025 16:27:14 03/07/20 25 03/15/2025 VITAM IN A, SERUM vitamin A 67.6 ug/dL 18.9-5 7.3 above high normal Refer ence inter vals for vitam in A deter mined from [facility] inter nal studi es. Indiv idual s with vitam in A less than 20 ug/dL are consi dered vitam in A defic ient and those with serum sampson ntrat ions less than 10 ug/dL are consi dered sever corinne defic ient. This test was devel oped and its perfo rmanc e lorena cteri stics deter mined by [facility]. It has not been clear ed or appro lj by the Food and Drug Admin istra tion. Not Available [facility] ([facility]) [address] [facility], [place], [address], 03/15/2025 16:27:15 03/07/20 25 03/08/2025 VITAM IN D, 25-HY DROXY vitamin D, 25-hydroxy 17.8 NG/mL 30.0-1 00.0 below low normal Vitam in D defic iency has been defin ed by the Insti tute of Medic ine and an Endoc rine Socie ty pract ice guide line as a level of serum 25-OH vitam in D less than 20 ng/mL (1,2) . The Endoc rine Socie ty went on to furth er defin e vitam in D insuf ficie ncy as a level betwe en 21 and 29 ng/mL (2). 1. IOM (Inst itute of Medic ine). 2009. Dieta ry refer ence intak es for calci um and D. Lul cano [place]: [facility] Press . 2. Ruby orellana MF, Raymon duran [place], Kyle off-F errar i GOLDBERG, et al. Evalu ation , treat ment, and preve ntion of vitam in D defic iency : an Endoc rine Socie ty clini merlin pract ice guide line. JCEM. 2010; 96(7) :1911 -30. Not Available [facility] ([facility]) [address] [facility], [place], [address], 03/15/2025 16:27:15 03/07/20 25 03/11/2025 VITAM IN B1 (THIA MINE) , BLOOD vit. B1, whole blood 186.0 nmol/ L 66.5-2 00.0 Not Available [facility] ([facility]) [address] [place], [address], 03/15/2025 16:27:16 03/07/20 25 03/13/2025 METHY LMALO MARTI ACID, SERUM methylmaloni c acid, serum 217 nmol/ L 0-378 Not Available [facility] ([facility]) [address] [facility], [place], [address], 03/15/2025 16:27:17 03/07/20 25 03/08/2025 PTH, INTAC T PTH, intact 14 pg/mL 15-65 below low normal Not Available [facility] ([facility]) [address] [facility], [place], [address], 03/15/2025 16:27:17 03/09/20 25 03/09/2025 elect rocar diogr am No observ ation record ed. [facility] [address] [facility] [address], [place], [address], 03/09/2025 11:36:21 03/09/20 25 03/09/2025 elect rocar diogr am No observ ation record ed. [facility] [address], [place], [address], 03/09/2025 11:35:22 03/16/20 25 03/16/2025 XR, chest , 2 view No observ ation record ed. [facility] [address], [place], [address], 03/16/2025 17:24:13 Result Notes None recorded. Problems Name Problem SNOMED Code Status Onset Date Resolution Date Notes Provider Name and Address Organization Details Recorded Time Anxiety 60663868 Active 2024 CECILIA LANZA, NIGHT CLUB MANAGER [address] [facility], [place], [address] , [facility] & [place] 5 13:11:09 Severe obesity 6082248321557 4 Active 2024 CECILIA LANZA, KAEL [address] [facility], [place], [address] , [facility] & [place] 5 13:11:32 Hyperlipid emia 02944110 Active 2024 CECILIA LANZA, KAEL [address] [facility], [place], [address] , [facility] - [facility] & [place] 14:30:33 Problem Notes None recorded. Procedures Surgical History Date Name Laterality Status Provider Name and Address Organization Details Recorded Time extraction of wisdom tooth completed Iradoreen Spencer [facility] & [place] 03/07/2025 11:44:28 operation on nasal septum [facility] [place] [facility] [place] [facility] [place] 03/07/2025 11:44:38 grafting to skin completed [place] [facility] & [place] 03/07/2025 11:44:46 Imaging Results Imaging Date Name Status LastModified by Organization Details LastModified Time 03/09/2025 electrocardiogram completed [address], [place], [address], 03/09/2025 11:36:21 03/09/2025 electrocardiogram completed [place] [address], [place], [address], 03/09/2025 11:35:22 03/16/2025 XR, chest, 2 view active [facility] [address], [place], [address], 03/16/2025 17:24:13 Procedure Notes None recorded. Medical Equipment None Reported. Allergies Allergen ID Allergen Name Allergen Category Reaction Reaction Severity Criticality Documentation Date Start Date Code Code System Note Provider Name and Address Organization Details Recorded Time 720314 buspirone medicatio n dizziness Not available Not available 02/27/2025 1827 RxNorm Micaela Roach [facility], [facility] & [place] 12:30:18 Medications Name Sig Start Date Stop [...] Not Available Not Available No t Available cholecalcif manjula (vitamin D3) 1,250 mcg (50,000 unit) capsule Take 1 capsule every week by oral route. 2024 active Not Available Not Available Not Avai lable desvenlafax ine succinate ER 50 mg tablet,exte [...] 5 165.1 cm 98 [degF] 51.8 kg/m2 266644. 95 g 142 mm[Hg] 92 mm[Hg] Ira LOMAX - [facility] - [place] & [place] 5 11:46:17 Date Recorded Body height Body mass index (BMI) Body weight Oxygen saturation Oxygen saturation in Arterial blood by Pulse oximetry Heart rate Systolic blood pressure Diastolic blood pressure Provider Name and Address Organization Details Last Updated DateTime 165.1 cm 51.6 kg/m2 633398. 63 g 99 % 99 % 78 /min 115 mm[Hg] 75 mm[Hg] Celena Perez [facility] & [place] 10:55:34 Social History Question Answer Notes LastModified by [employer] Details LastModified Time Tobacco Smoking Status Never Smoker Micaela Roach [facility], [facility] & [place] 02/27/2025 12:23:34 What Is Your Level Of Caffeine Consumption? None Information not available 02/27/2025 Sex: Unknown Functional Status Question Answer Note LastModified by [employer] Details LastModified Time What is your level of alcohol consumption? Occasional Information not available 02/27/2025 Mental Status None recorded. Family History Relationship Description Onset Age of this Age Resolved Age Notes LastModified by Organization Details LastModified Time Brother Bipolar disorder [email or web address] Not available 04/2025 11:31:10 Brother Schizophreni a Not available 04/2025 11:31:10 Father Chronic mental disorder [email or web address] Not available 04/2025 11:31:10 Maternal Grandfather Depressive disorder [email or web address] Not available 04/2025 11:31:10 Maternal Grandfather Suicide [email or web address] Not available 11:31:10 Maternal Grandmother Bipolar disorder [email or web address] Not available 04/2025 11:31:10 Maternal Grandmother Heart disease Not available 02/27 12:27:37 Mother Asthma [email or web address] Not availabl e 03/07/2025 11:31:10 Mother Depressive disorder [email or web address] Not available 04/2025 11:31:10 Mother Heart disease Not available 02/27 12:28:18 Mother Obesity Not availabl e 02/27/2025 12:28:29 Maternal Uncle Bipolar disorder [email or web address] Not available 04/2025 11:31:10 Sister Bipolar disorder [email or web address] Not available 04/2025 11:31:10 Sister Hyperlipidem ia [email or web address] Not available 04/2025 11:31:10 Medical History Condition Response Depression Y Anxiety Disorder Y Hypertension Y Gynecological HistoryNo gynecological history recorded. Obstetrics History GPAL:G 0 P 0 0 0 0 Past Encounters Encounter ID Performer Location Encounter Start Date Encounter Closed Date Diagnosis/Indication Diagnosis SNOMED-CT Code Diagnosis ICD10 Code Diagnosis Note [id number] CECILIA LANZA NP [facility] [address] [place] [address] [address] [place] [address] 03/07/2025 11:17:54 03/07/2025 14:42:56 Disorder of function of stomach 234494085 K31.89 Pre-surger y evaluation 150981365 Z01.818 Obesity screening 546454 005 Z13.89 Severe obesity 751295955 1 9104 E66.813 Z68.43 The patient will [...] after all testing has been completed Anxiety 10120940 F41.[id number] [facility] [address] [place] [address] [address] [place] [address] 03/07/2025 15:47:00 03/07/2025 15:51:57 Diet education 44457413 Z71.3 Completed nutrition evaluation and education with [...] to patient based on recommende d surgery. [id number] Natalia Lopez MD [facility] [address] [place] [address] 03/09/2025 10:45:53 03/09/2025 11:16:06 Preoperative procedure 526693455 Z01.810 29 year old female Normal EKG. physically active, no limitation s. can proceed with the surgery as low risk patient for moderate risk procedure from the cardiovasc ular standpoint . Hypertriglyceridemia 302 736355 E78.1 on fenofibrat e. follow up lipid panel fasting. Anxiety 98897424 F41.9 On propranolo l and Lamotrigin e. Severe obesity 904633069 1 9104 E66.813 Z68.43 BMI 51.6. sleep apnea study was negative as per the patient. Health Concerns Section Related Observation LastModified by Organization Detai ls LastModified Time None Recorded Concern Status LastModified by Organization Details LastModified Time None Recorded Advance Directives Directive None Recorded Payers Insurance Date Sequence Insurance Name Policy Number Policy Richards Covered Member ID Richards Member ID Guarantor Name 03/20/2025 1 [employer] [facility] (MEDICAID HMO) Neli Cunha [id number] Neli Bowman Notes Date Note Type Note [...] 175# Additional notes/comments: SY AYALA, RD [address] [facility], [place], [address], [facility] - [facility] - [place] & [place] 03/07/2025 15:51:28 5 text/htm l Patient presents [...] happy, loneliness, helps me handle stress. ARCENIO LANZA NP [address], [place], [address], [facility] & [place] 03/07/2025 15:47:40 text/htm l 29 year old female with [...] sinus rhythm, normal EKG. Natalia Lopez MD [address], [place], [address], [facility] & [place] 03/09/2025 11:24:28 OBGyn Episode No OBEpisode recorded.
--- OUTSIDE RECORDS SUMMARY | 2025-03-24 12:51 | XMS_ITS | Continuity of Care Document ---
Author Organization [place] - NT [facility] Bariatrics and Adv Surg Address [address] [facility] [address] [place] [address] Care Team Providers Care Sales Order Coordinator Name Role Phone SHABANARAMY GAMBINO Primary Care Provider Assessment No assessment recorded. [...] AUDI [facility], [address], [address], [place], [address], 03/15/2025 16:27:15 vitamin A (retinol) , serum 2024 025 [facility], [address], [address], [place], [address], 03/15/2025 16:27:15 vitamin E, serum 2024 025 [facility], [address], [address], [place], [address], 03/15/2025 16:27:12 PTH (parathyr oid hormone), intact, serum or plasma 2024 025 [facility], [address], [address], [place], [address], 03/15/2025 16:27:18 CBC w/ auto diff 2024 025 [facility], [address], [address], [place], [address], 03/15/2025 16:27:10 HbA1c (hemoglob in A1c), blood 2024 025 [facility], [address], [address], [place], [address], 03/15/2025 16:27:13 lipid panel, serum 2024 025 [facility]I [facility], [address], [address], [place], [address], 03/15/2025 16:27:12 TSH + free T4, serum 2024 025 [facility], [address], [address], [place], [address], 03/15/2025 16:27:09 folate, serum 2024 025 [facility], [address], [address], [place], [address], 03/15/2025 16:27:14 methylmal odell, QN, serum or plasma 2024 025 [facility], [address], [address], [place], [address], 03/15/2025 16:27:17 thiamine, QN, blood 2024 025 [facility], [address], [address], [place], [address], 03/15/2025 16:27:16 CMP, serum or plasma 2024 025 [place] [facility], [address], [address], [place], [address], 03/15/2025 16:27:11 iron + TIBC + ferritin, serum 2024 025 [place] [facility], [address], [address], [place], [address], 03/15/2025 16:27:09 Referral None recorded. Procedures None recorded. Surgeries esophagog astroduod enoscopy (SURG) 2024 025 [email or web address] Livier Parker MD, [address] [place] [address], [address], [place], [address], 03/08/2025 12:35:10 Imaging XR, chest, 2 view 2024 025 [facility] (Centralized Scheduling), [address] [place] [address], [place], [address], 03/16/2025 17:24:13 electroca rdiogram, routine ECG, 12 leads min 2024 025 [place] Not available 03/14/2025 04:19:38 Medication Orders None recorded. Patient TargetsNo targets recorded. Patient InstructionsNo instructions recorded. Reason for Referral None Reported. Results Created Date Observation Date Name Description Value Unit Range Abnormal Flag Note LastModifiedBy Organization Detail LastModifiedTime 03/09/2003/09/2025 elect rocar diogr am No observ ation record ed. [facility] New [address] [place] [address], [place], [address], 03/09/2025 11:36:21 03/09/20 25 03/09/2025 elect rocar diogr am No observ ation record ed. [facility] New [address] [place] [address], [place], [address], 03/09/2025 11:35:22 03/16/20 25 03/16/2025 XR, chest , 2 view No observ ation record ed. [facility] [address], [place], [address], 03/16/2025 17:24:13 Result Notes None recorded. Problems Name Problem SNOMED Code Status Onset Date Resolution Date Notes Provider Name and Address Organization Details Recorded Time Anxiety 22768542 Active 2024 CECILIA LANZA, HOME AND SCHOOL VISITOR [address] [place] [address], [place], [address] , [place] - [facility] & [place] 13:11:09 Severe obesity 1423101218858 4 Active 2024 CECILIA LANZA, HOME AND SCHOOL VISITOR [address] [place] [address], [place], [address] , [place] - [facility] & [place] 13:11:32 Hyperlipid emia 89640403 Active 2024 CECILIA LANZA, HOME AND SCHOOL VISITOR [address] [facility], [place], [address] , [place] - [facility] & [place] 14:30:33 Problem Notes None recorded. Procedures Surgical History Date Name Laterality Status Provider Name and Address Organization Details Recorded Time extraction of wisdom tooth completed Ira LOMAX - [facility] & [place] 03/07/2025 11:44:28 operation on nasal septum completed Ira Tj LOMAX - [facility] & [place] 03/07/2025 11:44:38 grafting to skin completed Ira LOMAX - [facility] & [place] 03/07/2025 11:44:46 Imaging Results None recorded. Procedure Notes None recorded. Medical Equipment None Reported. Allergies Allergen ID Allergen Name Allergen Category Reaction Reaction Severity Criticality Documentation Date Start Date Code Code System Note Provider Name and Address Organization Details Recorded Time 479535 buspirone medicatio n dizziness Not available Not available 02/27/2025 1827 RxNorm Micaela stack, [place] [facility] [place] 12:30:18 Medications Name Sig Start Date Stop [...] DateTime 165.1 cm 98 [degF] 51.8 kg/m2 178999. 95 g 142 mm[Hg] 92 mm[Hg] Ira Spencer [facility] & [place] 11:46:17 Social History Question Answer Notes LastModified by Organizat ion Details LastModified Time Tobacco Smoking Status Never Smoker Micaela stack, MD [facility] & [place] 02/27/2025 12:23:34 What Is Your Level Of [...] Organization Details LastModified Time Brother Bipolar disorder [email or web address] Not available 04/2025 11:31:10 Brother Schizophreni a [email or web address] Not available 04/2025 11:31:10 Father Chronic mental disorder [email or web address] Not available 04/2025 11:31:10 Maternal Grandfather Depressive disorder [email or web address] Not available 04/2025 11:31:10 Maternal Grandfather Suicide [email or web address] Not available 11:31:10 Maternal Grandmother Bipolar disorder [email or web address] Not available 04/2025 11:31:10 Maternal Grandmother Heart disease Not available 02/27 12:27:37 Mother Asthma [email or web address] Not availabl e 03/07/2025 11:31:10 Mother Depressive disorder [email or web address] Not available 04/2025 11:31:10 Mother Heart disease Not available 02/27 12:28:18 Mother Obesity Not availabl e 02/27/2025 12:28:29 Maternal Uncle Bipolar disorder [email or web address] Not available 04/2025 11:31:10 Sister Bipolar disorder [email or web address] Not available 04/2025 11:31:10 Sister Hyperlipidem ia Not available 04/2025 11:31:10 Medical History Condition Response Anxiety Disorder Y Hypertension Y Depression Y Gynecological HistoryNo gynecological history recorded. Obstetrics History GPAL:G 0 P 0 0 0 0 Past Encounters Encounter ID Performer Location Encounter Start Date Encounter Closed Date Diagnosis/Indication Diagnosis SNOMED-CT Code Diagnosis ICD10 Code Diagnosis Note [id number] CECILIA LANZA NP [facility] [address] [place] [address] 03/07/2025 11:17:54 03/07/2025 14:42:56 Disorder of function of stomach 971865064 K31.89 Pre-surger y evaluation 197644689 Z01.818 Obesity screening 339673 005 Z13.89 Severe obesity 787125578 1 9104 E66.813 Z68.43 The patient will [...] after all testing has been completed Anxiety 12992646 F41.9 [id number] [facility] [address] [facility] [address] [place] [address] 03/07/2025 15:47:00 03/07/2025 15:51:57 Diet education 84033761 Z71.3 Completed nutrition evaluation and education with [...] Member ID Guarantor Name 03/07/2025 1 [employer] [facility] (MEDICAID HMO) Neli Cunha [id number] Neli Bowman Notes Date Note Type Note [...] surgery: 175# Additional notes/comments: SY AYALA, RD [address], [place], [address], [facility] - [place] & [place] 03/07/2025 15:51:28 5 text/htm l Patient presents [...] loneliness, helps me handle stress. ARCENIO LANZA, KAEL [address] [facility], [place], [address], [facility] - [place] & [place] 03/07/2025 15:47:40 OBGyn Episode No OBEpisode recorded.
--- OUTSIDE RECORDS SUMMARY | 2025-03-24 12:51 | XMS_ITS | Continuity of Care Document ---
Author Organization [facility] Address [address] [place] [address] Care Team Providers Care Administration Professional Name Role Phone RAMY DONALD Primary Care [...] Surgeries None recorded. Imaging electroca rdiogram 2024 025 [facility], [address], [place], [address], 03/09/2025 11:35:22 Medication Orders None recorded. Patient TargetsNo targets recorded. Patient InstructionsNo instructions recorded. Reason for Referral None Reported. Results Created Date Observation Date Name Description Value Unit Range Abnormal Flag Note LastModifiedBy Organization Detail LastModifiedTime 03/09/2003/09/2025 elect rocar diogr am No observ ation record ed. [facility] [address], [place], [address], 03/09/2025 11:36:21 03/09/20 25 03/09/2025 elect rocar diogr am No observ ation record ed. [facility] [address], [place], [address], 03/09/2025 11:35:22 03/16/20 25 03/16/2025 XR, chest , 2 view No observ ation record ed. [facility] [address], [place], [address], 03/16/2025 17:24:13 Result Notes None recorded. Problems Name Problem SNOMED Code Status Onset Date Resolution Date Notes Provider Name and Address Organization Details Recorded Time Anxiety 66500683 Active 2024 CECILIA LANZA, KAEL [address] [facility], [place], [address] , [place] - [facility] - [place] & [place] 13:11:09 Severe obesity 0638135338416 4 Active 2024 CECILIA LANZA, KAEL [address] [facility], [place], [address] , [place] - [place] - [place] & [place] 5 13:11:32 Hyperlipid emia 36913880 Active 2024 CECILIA LANZA, KAEL [address] [facility], [place], [address] , [place] - [facility] - [place] & [place] 14:30:33 Problem Notes None recorded. Procedures Surgical History Date Name Laterality Status Provider Name and Address Organization Details Recorded Time extraction of wisdom tooth completed Ira Spencer [place] - [place] - [place] & [place] 03/07/2025 11:44:28 operation on nasal septum completed Ira Spencer [place] - [place] - [place] & [place] 03/07/2025 11:44:38 grafting to skin completed Ira Spencer [place] - [place] - [place] & [place] 03/07/2025 11:44:46 Imaging Results Imaging Date Name Status LastModified by Organization Details LastModified Time 03/09/2025 electrocardiogram completed [facility] [address], [place], [address], 03/09/2025 11:36:21 Procedure Notes None recorded. Medical Equipment None Reported. Allergies Allergen ID Allergen Name Allergen Category Reaction Reaction Severity Criticality Documentation Date Start Date Code Code System Note Provider Name and Address Organization Details Recorded Time 994183 buspirone medicatio n dizziness Not available Not available 02/27/2025 1827 RxNorm Micaela Roach [facility], [facility] & [place] 12:30:18 Medications Name Sig Start Date Stop [...] Details Last Updated DateTime 5 165.1 cm 51.6 kg/m2 685255. 63 g 99 % 99 % 78 /min 115 mm[Hg] 75 mm[Hg] Celena Perez [facility] & [place] 10:55:34 Social History Question Answer Notes LastModified by Organizat ion Details LastModified Time Tobacco Smoking Status Never Smoker Micaela Roach null, [facility] & [place] 02/27/2025 12:23:34 What Is Your Level Of [...] Organization Details LastModified Time Brother Bipolar disorder [email or web address] Not available 04/2025 11:31:10 Brother Schizophreni a Not available 04/2025 11:31:10 Father Chronic mental disorder [email or web address] Not available 04/2025 11:31:10 Maternal Grandfather Depressive disorder [email or web address] Not available 04/2025 11:31:10 Maternal Grandfather Suicide [email or web address] Not available 11:31:10 Maternal Grandmother Bipolar disorder [email or web address] Not available 04/2025 11:31:10 Maternal Grandmother Heart disease Not available 02/27 12:27:37 Mother Asthma [email or web address] Not availabl e 03/07/2025 11:31:10 Mother Depressive disorder [email or web address] Not available 04/2025 11:31:10 Mother Heart disease Not available 02/27 12:28:18 Mother Obesity Not availabl e 02/27/2025 12:28:29 Maternal Uncle Bipolar disorder [email or web address] Not available 04/2025 11:31:10 Sister Bipolar disorder [email or web address] Not available 04/2025 11:31:10 Sister Hyperlipidem ia [email or web address] Not available 04/2025 11:31:10 Medical History Condition Response Anxiety Disorder Y Hypertension Y Depression Y Gynecological HistoryNo gynecological history recorded. Obstetrics History GPAL:G 0 P 0 0 0 0 Past Encounters Encounter ID Performer Location Encounter Start Date Encounter Closed Date Diagnosis/Indication Diagnosis SNOMED-CT Code Diagnosis ICD10 Code Diagnosis Note [id number] CECILIA LANZA NP [facility] Bariatric s and Adv Surg [address] [place] [address] [address] [place] [address] 03/07/2025 11:17:54 03/07/2025 14:42:56 Disorder of function of stomach 076024661 K31.89 Pre-surger y evaluation 388732940 Z01.818 Obesity screening 588099 005 Z13.89 Severe obesity 326037626 1 9104 E66.813 Z68.43 The patient will [...] after all testing has been completed Anxiety 86665584 F41.[id number] [facility] Bariatric s and Adv Surg [address] [place] [address] [address] [place] [address] 03/07/2025 15:47:00 03/07/2025 15:51:57 Diet education 10118856 Z71.3 Completed nutrition evaluation and education with [...] to patient based on recommende d surgery. [id number] Natalia Lopez MD [facility] [address] [place] [address] 03/09/2025 10:45:53 03/09/2025 11:16:06 Preoperative procedure 117674445 Z01.810 29 year old female Normal EKG. physically active, no limitation s. can proceed with the surgery as low risk patient for moderate risk procedure from the cardiovasc ular standpoint . Hypertriglyceridemia 302 817466 E78.1 on fenofibrat e. follow up lipid panel fasting. Anxiety 79556764 F41.9 On propranolo l and Lamotrigin e. Severe obesity 482960704 1 9104 E66.813 Z68.43 BMI 51.6. sleep apnea study was negative as per the patient. Health Concerns Section Related Observation LastModified by Organization Detai ls LastModified Time None Recorded Concern Status LastModified by Organization Details LastModified Time None Recorded Payers Encounter Date Sequence Insurance Name Policy Number Policy Richards Covered Member ID Richards Member ID Guarantor Name 03/09/[address] [facility] (MEDICAID HMO) Neli Cunha [id number] Neli Bowman Notes Date Note Type Note [...] rhythm, normal EKG. Natalia Lopez MD [address], [place], [address] [place] 03/09/2025 11:24:28 OBGyn Episode No OBEpisode recorded.
--- OUTSIDE RECORDS SUMMARY | 2025-03-24 12:51 | XMS_ITS | Continuity of Care Document ---
Author Organization [place] - [place] [facility] Bariatrics and Adv Surg Address [address] [facility] [address] [place] [address] Care Team Providers Care Automobile Parker Name Role Phone RAMY DONALD Primary Care Provider [phone] Assessment Encounter Date Assessment Date Assessment LastModified [...] minutes was spent with the pt today. [email or web address] Not available 03/07/2025 15:51:13 Plan of Treatment [...] Abnormal Flag Note LastModifiedBy Organization Detail LastModifiedTime 03/09/20 25 03/09/2025 elect rocar diogr am No observ ation record ed. [facility] [address], [place], [address], 03/09/2025 11:36:21 03/09/20 25 03/09/2025 elect rocar diogr am No observ ation record ed. [facility] [address], [place], [address], 03/09/2025 11:35:22 03/16/20 25 03/16/2025 XR, chest , 2 view No observ ation record ed. [facility] [address], [place], [address], 03/16/2025 17:24:13 Result Notes None recorded. Problems Name Problem SNOMED Code Status Onset Date Resolution Date Notes Provider Name and Address Organization Details Recorded Time Anxiety 97756606 Active 2024 CECILIA LANZA NP [address] [facility], [place], [address] , [place] - [place] [facility] & [place] 13:11:09 Severe obesity 7604337316191 4 Active 2024 CECILIA LANZA NP [address] [facility], [place], [address] , [place] - [facility] [facility] & [place] 13:11:32 Hyperlipid emia 03175774 Active 2024 CECILIA LANZA NP [address] [facility], [place], [address] , [place] - [facility] [facility] & [place] 14:30:33 Problem Notes None recorded. Procedures Surgical History Date Name Laterality Status Provider Name and Address Organization Details Recorded Time extraction of wisdom tooth completed Ira LOMAX [facility] & [place] 03/07/2025 11:44:28 operation on nasal septum completed Ira LOMAX [facility] & [place] 03/07/2025 11:44:38 grafting to skin completed Ira Spencer [facility] & [place] 03/07/2025 11:44:46 Imaging Results None recorded. Procedure Notes None recorded. Medical Equipment None Reported. Allergies Allergen ID Allergen Name Allergen Category Reaction Reaction Severity Criticality Documentation Date Start Date Code Code System Note Provider Name and Address Organization Details Recorded Time 786966 buspirone medicatio n dizziness Not available Not available 02/27/2025 1827 RxNorm Micaela stack [facility] & [place] 12:30:18 Medications Name Sig Start Date Stop [...] DateTime 165.1 cm 98 [degF] 51.8 kg/m2 881221. 95 g 142 mm[Hg] 92 mm[Hg] Ira Spencer [facility] & [place] 11:46:17 Social History Question Answer Notes LastModified by Jogg Details LastModified Time Tobacco Smoking Status Never Smoker Micaela Roach seda, [facility] & [place] 02/27/2025 12:23:34 What Is Your Level Of Caffeine Consumption? None Information not available 02/27/2025 Sex: Unknown Functional Status Question Answer Note LastModified by Jogg Details LastModified Time What is your level of alcohol consumption? Occasional Information not available 02/27/2025 Mental Status None recorded. Family History Relationship Description Onset Age of this Age Resolved Age Notes LastModified by Organization Details LastModified Time Brother Bipolar disorder [email or web address] Not available 04/2025 11:31:10 Brother Schizophreni a [email or web address] Not available 04/2025 11:31:10 Father Chronic mental disorder [email or web address] Not available 04/2025 11:31:10 Maternal Grandfather Depressive disorder [email or web address] Not available 04/2025 11:31:10 Maternal Grandfather Suicide [email or web address] Not available 11:31:10 Maternal Grandmother Bipolar disorder Not available 04/2025 11:31:10 Maternal Grandmother Heart disease Not available 02/27 12:27:37 Mother Asthma [email or web address] Not availabl e 03/07/2025 11:31:10 Mother Depressive disorder [email or web address] Not available 04/2025 11:31:10 Mother Heart disease Not available 02/27 12:28:18 Mother Obesity Not availabl e 02/27/2025 12:28:29 Maternal Uncle Bipolar disorder [email or web address] Not available 04/2025 11:31:10 Sister Bipolar disorder [email or web address] Not available 04/2025 11:31:10 Sister Hyperlipidem ia [email or web address] Not available 04/2025 11:31:10 Medical History Condition Response Depression Y Anxiety Disorder Y Hypertension Y Gynecological HistoryNo gynecological history recorded. Obstetrics History GPAL:G 0 P 0 0 0 0 Past Encounters Encounter ID Performer Location Encounter Start Date Encounter Closed Date Diagnosis/Indication Diagnosis SNOMED-CT Code Diagnosis ICD10 Code Diagnosis Note [id number] [facility] [address] [facility] [address] [facility] [place] [address] 03/07/2025 11:17:54 03/07/2025 14:42:56 Disorder of function of stomach 759735383 K31.89 Pre-surger y evaluation 071017284 Z01.818 Obesity screening 386693 005 Z13.89 Severe obesity 884206359 1 9104 E66.813 Z68.43 The patient will [...] after all testing has been completed Anxiety 04908305 F41.[id number] [facility] [address] [facility] [address] [facility] [place] [address] 03/07/2025 15:47:00 03/07/2025 15:51:57 Diet education 45181633 Z71.3 Completed nutrition evaluation and education with [...] Member ID Guarantor Name 03/07/2025 1 [employer] [facility] (MEDICAID HMO) Neli Cunha [id number] Neli Bowman Notes Date Note Type Note [...] 175# Additional notes/comments: SY AYALA, RD [address], [place], [address], [facility] [place] [facility] & [place] 03/07/2025 15:51:28 5 text/htm l Patient presents [...] helps me handle stress. ARCENIO LANZA NP [address] [facility], [place], [address], [facility] - [place] - [place] & [place] 03/07/2025 15:47:40 OBGyn Episode No OBEpisode recorded.
[2025-03-24 13:35] VITALS: PULSE 74; PULSE 77
[2025-03-24] MEDS: ALBUTEROL 0.083% 2.5 MG/3 ML NEB IH (13:35)
== END 2025-03-24 23:59 | disposition home or self-care (01) ==
LOC: RT 12:49
PROVIDERS: PCP Nurse Practitioner Family; Visit Provider Nurse Practitioner Family
DX: R06.02 Shortness of breath (principal)
CPT/HCPCS: 94060; 94618; 94640; 94726; 94729